=== PATIENT | male | born 1955 | race Hispanic/Latino ===

== ENCOUNTER 2018-10-05 08:20 | Inpatient (IN) | payer OTHER ==
--- NOTE | 2018-10-05 08:54 | ED PDOC ---
Arrival/HPI - General Chief Complaint: Chest Pain Time Seen by Provider: 10/05/18 08:41 Historian: Patient - History of Present Illness Narrative History of Present Illness (Text): 10/05/18 08:54 62 year old male, with past medical history of CVA (10/2017), peripheral neuropathy, hypertension, asthma, and chronic lower back pain and alcohol dependence, presents to the ED for evaluation of nausea, vomiting and diarrhea for past 4 days. Patient reports poor diet intake secondary to symptoms. Patient reports intermittent chest discomfort at home but none currently. Patient additionally informs bilateral feet discomfort but denies any trauma or injury. Patient denies any other somatic complaints. Patient denies any fever, chills, abdominal pain, shortness of breath, neck pain, back pain, vision changes, urinary symptoms or any other complaints. PMD: Dr. Moeller Time/Duration: < week Symptom Onset: Gradual Symptom Course: Unchanged Activities at Onset: Light Context: Home Past Medical History - Provider Review Nursing Documentation Reviewed: Yes - Infectious Disease Hx of Infectious Diseases: None - Tetanus Immunization Tetanus Immunization: Unknown - Cardiac Hx Cardiac Disorders: No Hx Angina: No Hx Cardiac Arrhythmia: No Hx Circulatory Problems: No Hx Congestive Heart Failure: No Hx Heart Transplant: No Hx Hypertension: Yes Hx Internal Defibrillator: No Hx Mitral Valve Prolapse: No Hx Pacemaker: No Hx Peripheral Edema: No Hx Peripheral Vascular Disease: No - Pulmonary Hx Respiratory Disorders: Yes Hx Asthma: Yes Hx Bronchitis: No Hx Chronic Obstructive Pulmonary Disease (COPD): No Hx Emphysema: No Hx Pneumonia: No Hx Respiratory Aspiration: No Hx Respiratory Tract Infection: No Hx Sleep Apnea: No Hx Tuberculosis: No - Neurological Hx Neurological Disorder: No Hx Alzheimer's Disease: No HX Cerebrovascular Accident: No Hx Dementia: No Hx Dizziness: No Hx Meningitis: No Hx Migraine: No Hx Parkinson's Disease: No Hx Seizures: No Hx Transient Ischemic Attacks (TIA): No - HEENT Hx HEENT Disorder: No Other/Comment: sinus issues due to enviromental allergies - Renal Hx Renal Disorder: No - Endocrine/Metabolic Hx Hyperthyroidism: No Hx Hypothyroidism: No - Hematological/Oncological Hx Blood Disorders: No - Integumentary Hx Dermatological Disorder: No - Musculoskeletal/Rheumatological Hx Arthritis: Yes (x 3yrs) Hx Back Pain: Yes (x 3 yrs) Hx Falls: No Hx Unsteady Gait: Yes (due to knee paon) Other/Comment: spinal stenosis - Gastrointestinal Hx Gastrointestinal Disorders: No - Genitourinary/Gynecological Hx Genitourinary Disorders: No Hx Reproductive Disorders: No - Psychiatric Hx Psychophysiologic Disorder: No Hx Substance Use: Yes Other/Comment: hx of etoh drinks 6-12 beers a day - Surgical History Hx Cardiac Catheterization: No Hx Coronary Stent: No Other/Comment: spinal surgery - Anesthesia Hx Anesthesia: Yes Hx Anesthesia Reactions: No Hx Malignant Hyperthermia: No - Suicidal Assessment Feels Threatened In Home Enviroment: No Family/Social History - Physician Review Nursing Documentation Reviewed: Yes Family/Social History: No Known Family HX Smoking Status: Heavy Smoker > 10 Cigarettes Daily Hx Alcohol Use: Yes (6-12 bottles of beer daily) Hx Substance Use: Yes Hx Substance Use Treatment: No Allergies/Home Meds Allergies/Adverse Reactions: Allergies enviromental Allergy (Mild, Uncoded 10/05/18 13:27) COUGH Home Medications: Home Meds Medication Instructions Recorded Confirmed Gabapentin [Neurontin] 300 mg PO BID 05/08/15 10/05/18 amLODIPine [Norvasc] 10 mg PO DAILY 12/25/15 10/05/18 Review of Systems - Physician Review All systems were reviewed & negative as marked: Yes - Review of Systems Constitutional: absent: Fevers Eyes: absent: Vision Changes Respiratory: absent: SOB Cardiovascular: absent: Chest Pain Gastrointestinal: Diarrhea, Nausea, Vomiting. absent: Abdominal Pain Genitourinary Male: absent: Dysuria, Urinary Output Changes Musculoskeletal: absent: Neck Pain Skin: absent: Rash Neurological: absent: Headache, Dizziness Physical Exam - Physical Exam Narrative Physical Exam (Text): 10/05/18 08:59 Gen: VS reviewed, alert, well developed, well nourished, nontoxic, mild distress. Unkempt. ENT: normal pharynx. Dry mucous membranes. Eye: EOMI, PERRL. Neck: no JVD, supple, no adenopathy. CV: regular rate, regular rhythm, no rubs, no murmur, no gallops, S1, S2, pulses equal and strong. Pulm: no distress, clear to auscultation, no wheeze, no rhonchi, breath sounds equal, no rales. Abd: soft, nontender, no guarding, no rebound, no rigidity, normal bowel sounds. Ext: no edema. Skin: good color, no rash, no cyanosis. Psych: responds appropriately to questions, normal affect. Neuro: oriented x 3, CN2-12 intact grossly, motor intact, sensation intact. Vital Signs Reviewed: Yes Vital Signs Temp Pulse Resp BP Pulse Ox 10/05/18 08:41 97.7 F 68 19 168/92 H 95 10/05/18 08:20 97.7 F 70 18 168/92 H 96 Temperature: Afebrile Blood Pressure: Hypertensive Pulse: Regular Respiratory Rate: Normal Appearance: Positive for: Well-Appearing, Non-Toxic, Comfortable Pain Distress: None Mental Status: Positive for: Alert and Oriented X 3 Medical Decision Making ED Course and Treatment: 10/05/18 09:00 Impression: 62 year old male presents to the ED for evaluation of nausea, vomiting, and diarrhea. Plan: -- EKG -- Labs -- Reassess and disposition Prior Visits: Notes and results from previous visits were reviewed. Progress Notes: 10/05/18 10:16 Dr. Moeller evaluated patient at bedside, accepts patient under his service. Request CT of head, as well as Dr. Dhaliwal and Dr. Cazares on consult for cardiology and neurology respectively. - RAD Interpretation Narrative RAD Interpretations (Text): 10/05/18 11:04 CT of head reviewed by radiologist, shows: FINDINGS: HEMORRHAGE: No intracranial hemorrhage. BRAIN: Turcios-white matter differentiation is preserved. There is no mass, mass effect or abnormal extra-axial fluid collection. There is no territorial infarction. The midline sagittal structures are normal. VENTRICLES: There is mild age-related global parenchymal volume loss and proportionate enlargement of the ventricles and cortical sulci. CALVARIUM: There is no calvarial fracture or extracranial soft tissue swelling. PARANASAL SINUSES: Predominantly clear. MASTOID AIR CELLS: Predominantly clear. OTHER FINDINGS: None. IMPRESSION: No acute intracranial abnormality. Rn Labor Delivery: Radiologist - EKG Interpretation EKG Interpretation (Text): 10/05/18 09:01 EKG reviewed at 8:38, shows NSR at 69 bpm, normal QRS, normal axis, PACs. Interpreted by ED Physician: Yes Type: 12 lead EKG - Scribe Statement The provider has reviewed the documentation as recorded by the Scribe Dee Cobb. All medical record entries made by the Scribe were at my direction and personally dictated by me. I have reviewed the chart and agree that the record accurately reflects my personal performance of the history, physical exam, medical decision making, and the department course for this patient. I have also personally directed, reviewed, and agree with the discharge instructions and disposition. Disposition/Present on Arrival - Present on Arrival Any Indicators Present on Arrival: No History of DVT/PE: No History of Uncontrolled Diabetes: No Urinary Catheter: No History of Decub. Ulcer: No History Surgical Site Infection Following: None - Disposition Have Diagnosis and Disposition been Completed?: Yes Diagnosis: Chest pain Disposition: HOSPITALIZED Disposition Time: 19:26 Condition: STABLE
[2018-10-05 09:36] LABS: BASO # 0.01 K/mm3 (0.0-2.0); BASO % 0.2 % (0.0-3.0); EOS % 0.6 % (1.5-5.0); HEMOGLOBIN 14.6 g/dL (14.0-18.0); LYMPH % 15.6 % (22.0-35.0); MEAN CELL VOLUME 98.1 fl (80.0-105.0); MEAN CORPUSCULAR HGB CONC 34.7 g/dl (31.0-37.0); MEAN PLATELET VOLUME 11.1 fl (7.0-11.0); MONO # 0.7 (0.1-0.6); MONO % 10.7 % (1.0-6.0); RBC 4.29 10^6/uL (3.5-6.1); RED CELL DISTRIBUTION WIDTH 13.2 % (11.5-14.5); WHITE BLOOD COUNT 6.4 10^3/uL (4.5-11.0)
[2018-10-05 09:40] LABS: INR 1.08; PARTIAL THROMBOPLASTIN TIME 28.8 Seconds (26.9-38.3); PROTHROMBIN TIME 12.2 SECONDS (9.4-12.5)
[2018-10-05 09:54] LABS: TROPONIN I < 0.01 ng/mL
[2018-10-05 09:58] LABS: D DIMER < 200 ng/mlDDU (0-243)
[2018-10-05 10:25] LABS: ALB/GLOB RATIO 1.4 (1.1-1.8); ALBUMIN 4.5 g/dL (3.0-4.8); ALT/SGPT 55 U/L (7-56); AST/SGOT 64 U/L (17-59); B-TYPE NATRIURETIC PEPTIDE 225 pg/mL (0-450); BLOOD UREA NITROGEN 10 mg/dL (7-21); CALCIUM 9.5 mg/dL (8.4-10.5); GFR NON-AFRICAN AMERICAN > 60
--- NOTE | 2018-10-05 11:00 | CT ---
Date of service: 10/05/2018 PROCEDURE: CT HEAD WITHOUT CONTRAST. HISTORY: Headaches COMPARISON: 07/30/2013. TECHNIQUE: Axial computed tomography images were obtained through the head/brain without intravenous contrast. Radiation dose: Total exam DLP = 1059.49 mGy-cm. This CT exam was performed using one or more of the following dose reduction techniques: Automated exposure control, adjustment of the mA and/or kV according to patient size, and/or use of iterative reconstruction technique. FINDINGS: HEMORRHAGE: No intracranial hemorrhage. BRAIN: Turcios-white matter differentiation is preserved. There is no mass, mass effect or abnormal extra-axial fluid collection. There is no territorial infarction. The midline sagittal structures are normal. VENTRICLES: There is mild age-related global parenchymal volume loss and proportionate enlargement of the ventricles and cortical sulci. CALVARIUM: There is no calvarial fracture or extracranial soft tissue swelling. PARANASAL SINUSES: Predominantly clear. MASTOID AIR CELLS: Predominantly clear. OTHER FINDINGS: None. IMPRESSION: No acute intracranial abnormality.
[2018-10-05] MEDS ORDERED: Iohexol 240 (50 ml) ONE (12:20)
[2018-10-05 13:36] LABS: BILIRUBIN,DIRECT 0.4 mg/dL (0.0-0.4)
--- NOTE | 2018-10-05 14:31 | CT ---
Date of service: 10/05/2018 PROCEDURE: CT Abdomen and Pelvis with contrast HISTORY: vomiting, diarrhea, elevated LFTs COMPARISON: None. TECHNIQUE: Contrast dose: 150 cc of Omni 350 Radiation dose: Total exam DLP = 1258.96 mGy-cm. This CT exam was performed using one or more of the following dose reduction techniques: Automated exposure control, adjustment of the mA and/or kV according to patient size, and/or use of iterative reconstruction technique. FINDINGS: LOWER THORAX: Unremarkable. LIVER: Unremarkable. No gross lesion or ductal dilatation. There is fatty infiltration of the liver GALLBLADDER AND BILE DUCTS: Multiple lucent gallstones are seen filling the gallbladder. There is no pericholecystic fluid. PANCREAS: Unremarkable. No gross lesion or ductal dilatation. SPLEEN: Unremarkable. ADRENALS: Unremarkable. No mass. KIDNEYS AND URETERS: Unremarkable. No hydronephrosis. No solid mass. VASCULATURE: Unremarkable. No aortic aneurysm. Aortic calcification BOWEL: Unremarkable. No obstruction. No gross mural thickening. APPENDIX: Normal appendix. PERITONEUM: Unremarkable. No free fluid. No free air. LYMPH NODES: Unremarkable. No enlarged lymph nodes. BLADDER: Unremarkable. REPRODUCTIVE: Unremarkable. BONES: No acute fracture. OTHER FINDINGS: None. IMPRESSION: Multiple lucent gallstones are seen filling the gallbladder. There is no pericholecystic fluid. Fatty infiltration of the liver
[2018-10-05] MEDS ORDERED: Aspirin 325 mg EC Tablets PO STA (15:07)
--- NOTE | 2018-10-05 15:12 | CP.PCM.CON ---
<Sherita Richardson - Last Filed: 10/05/18 15:05> History of Present Illness - History of Present Illness History of Present Illness: Gastroenterology Fellow/PGY6 Consult Note for Dr. Paris 62 year old male with PMH of Alcohol abuse, Afib, CVA, HTN, Depression, and chronic back pain presenting with vomiting and diarrhea. Patient describes intractable watery diarrhea for the last four days. Notes two remote episodes of bilious vomiting two days ago. Associated nausea, poor appetite, and night-time palpitations. Denies fever, chills, sweats, sick contacts, recent travel/antibiotics/hospitalizations, abdominal pain, hematemesis, melena, hematochezia, or unintentional weight loss. No prior EGD or colonoscopy. Family History- denies colon cancer, stomach cancer Social History- tobacco and alcohol abuse (prior pint of vodka daily, range 6-12 beers daily), denies illicit drug use Surgical History-spine intervention Review of Systems - Review of Systems Review of Systems: 12-point review of systems negative except for as above Past Patient History - Infectious Disease Hx of Infectious Diseases: None - Tetanus Immunizations Tetanus Immunization: Unknown - Past Social History Smoking Status: Heavy Smoker > 10 Cigarettes Daily - CARDIAC Hx Cardiac Disorders: No Hx Angina: No Hx Cardia Arrhythmia: No Hx Circulatory Problems: No Hx Congestive Heart Failure: No Hx Heart Transplant: No Hx Hypertension: Yes Hx Internal Defibrillator: No Hx Mitral Valve Prolapse: No Hx Pacemaker: No Hx Peripheral Edema: No Hx Peripheral Vascular Disease: No - PULMONARY Hx Respiratory Disorders: Yes Hx Asthma: Yes Hx Bronchitis: No Hx Chronic Obstructive Pulmonary Disease (COPD): No Hx Emphysema: No Hx Pneumonia: No Hx Respiratory Aspiration: No Hx Respiratory Tract Infection: No Hx Sleep Apnea: No Hx Tuberculosis: No - NEUROLOGICAL Hx Neurological Disorder: No Hx Alzheimer's Disease: No HX Cerebrovascular Accident: No Hx Dementia: No Hx Dizziness: No Hx Meningitis: No Hx Migraine: No Hx Parkinson's Disease: No Hx Seizures: No Hx Transient Ischemic Attacks (TIA): No - HEENT Hx HEENT Problems: No Other/Comment: sinus issues due to enviromental allergies - RENAL Hx Chronic Kidney Disease: No - ENDOCRINE/METABOLIC Hx Hyperthyroidism: No Hx Hypothyroidism: No - HEMATOLOGICAL/ONCOLOGICAL Hx Blood Disorders: No - INTEGUMENTARY Hx Dermatological Problems: No - MUSCULOSKELETAL/RHEUMATOLOGICAL Hx Arthritis: Yes (x 3yrs) Hx Back Pain: Yes (x 3 yrs) Hx Falls: No Hx Unsteady Gait: Yes (due to knee paon) Other/Comment: spinal stenosis - GASTROINTESTINAL Hx Gastrointestinal Disorders: No - GENITOURINARY/GYNECOLOGICAL Hx Genitourinary Disorders: No Hx Reproductive Disorders: No - PSYCHIATRIC Hx Psychophysiologic Disorder: No Hx Substance Use: Yes Other/Comment: hx of etoh drinks 6-12 beers a day - SURGICAL HISTORY Hx Cardiac Catheterization: No Hx Coronary Stent: No Other/Comment: spinal surgery - ANESTHESIA Hx Anesthesia: Yes Hx Anesthesia Reactions: No Hx Malignant Hyperthermia: No Meds Allergies/Adverse Reactions: Allergies Allergy/AdvReac Type Severity Reaction Status Date / Time enviromental Allergy Mild COUGH Uncoded 10/05/18 13:27 - Medications Medications: Current Medications Amiodarone HCl (Cordarone) 200 mg PO DAILY [facility] Amlodipine Besylate (Norvasc) 10 mg PO DAILY [facility] Hydralazine HCl (Apresoline) 10 mg PO QID PRN PRN Reason: for SBP> 160 Metoprolol Tartrate (Lopressor) 12.5 mg PO BID [facility] Physical Exam - Constitutional Appears: Non-toxic, No Acute Distress - Head Exam Head Exam: ATRAUMATIC, NORMOCEPHALIC - Eye Exam Eye Exam: EOMI, PERRL. absent: Scleral icterus Pupil Exam: PERRL. absent: Miosis, Mydriatic - ENT Exam ENT Exam: Mucous Membranes Moist, Normal Oropharynx - Neck Exam Neck exam: Positive for: Full Rom, Normal Inspection - Respiratory Exam Respiratory Exam: Clear to Auscultation Bilateral. absent: Rales, Rhonchi, Wheezes - Cardiovascular Exam Cardiovascular Exam: RRR, +S1, +S2. absent: Gallop, Rubs - GI/Abdominal Exam GI & Abdominal Exam: Distended, Hypoactive Bowel Sounds, Organomegaly, Soft. absent: Firm, Guarding, Rebound, Rigid, Tenderness - Extremities Exam Extremities exam: Positive for: normal inspection, pedal edema - Neurological Exam Neurological exam: Alert - Psychiatric Exam Psychiatric exam: Normal Affect, Normal Mood - Skin Skin Exam: Dry, Intact, Normal Color, Warm Results - Vital Signs Recent Vital Signs: Last Vital Signs Temp 97.7 F 10/05/18 08:41 Pulse 60 10/05/18 14:30 Resp 20 10/05/18 14:30 BP 133/77 10/05/18 14:30 Pulse Ox 97 10/05/18 14:30 - Labs Result Diagrams: 10/05/18 09:17 10/05/18 09:17 Labs: Laboratory Results - last 24 hr 10/05/18 10/05/18 10/05/18 09:17 09:17 09:17 WBC 6.4 RBC 4.29 Hgb 14.6 Hct 42.1 MCV 98.1 MCH 34.0 MCHC 34.7 RDW 13.2 Plt Count 165 MPV 11.1 H Neut % (Auto) 72.9 H Lymph % (Auto) 15.6 L [place] % (Auto) 10.7 H Eos % (Auto) 0.6 L Baso % (Auto) 0.2 Lymph # (Auto) 1.0 L [place] # (Auto) 0.7 H Eos # (Auto) 0.0 Baso # (Auto) 0.01 Absolute Neuts (auto) 4.63 Retic Count PT 12.2 INR 1.08 APTT 28.8 D-Dimer, Quantitative < 200 Sodium 139 Potassium 4.1 Chloride 106 Carbon Dioxide 24 Anion Gap 13 BUN 10 Creatinine 0.7 L Est GFR ( Amer) > 60 Est GFR (Non-Af Amer) > 60 Random Glucose 105 Calcium 9.5 Magnesium 2.1 Total Bilirubin 1.5 H Direct Bilirubin AST 64 H ALT 55 Alkaline Phosphatase 88 Lactate Dehydrogenase Troponin I < 0.01 NT-Pro-B Natriuret Pep 225 Total Protein 7.7 Albumin 4.5 Globulin 3.2 Albumin/Globulin Ratio 1.4 Alcohol, Quantitative 10/05/18 10/05/18 10/05/18 09:17 10:00 10:00 WBC RBC Hgb Hct MCV MCH MCHC RDW Plt Count MPV Neut % (Auto) Lymph % (Auto) Rosebud % (Auto) Eos % (Auto) Baso % (Auto) Lymph # (Auto) [place] # (Auto) Eos # (Auto) Baso # (Auto) Absolute Neuts (auto) Retic Count 1.58 H PT INR APTT D-Dimer, Quantitative Sodium Potassium Chloride Carbon Dioxide Anion Gap BUN Creatinine Est GFR ( Amer) Est GFR (Non-Af Amer) Random Glucose Calcium Magnesium Total Bilirubin Direct Bilirubin 0.4 AST ALT Alkaline Phosphatase Lactate Dehydrogenase 525 Troponin I NT-Pro-B Natriuret Pep Total Protein Albumin Globulin Albumin/Globulin Ratio Alcohol, Quantitative < 10 Assessment & Plan - Assessment and Plan (Free Text) Assessment: 62 year old male with PMH of Alcohol abuse, Afib, CVA, HTN, Depression, and chronic back pain presenting with vomiting and diarrhea. Active treatment of intractable diarrhea. No prior EGD or colonoscopy. Plan: -likely viral gastroenteritis -CT A/P- no acute intra-abdominal pathology -continue IVFs -ordered stool culture and Cdiff -provide Flagyl Q8H -provide liquid diet, advance as tolerated -mildly elevated bilirubin and AST in setting of GI fluid loss, alcohol use, and Obesity -pending Hepatitis panel and drug screen -will follow clinical course Case discussed with Dr. Paris <Bobby Paris V - Last Filed: 10/05/18 23:47> Meds - Medications Medications: Current Medications Amiodarone HCl (Cordarone) 200 mg PO DAILY [facility] Amlodipine Besylate (Norvasc) 10 mg PO DAILY [facility] Aspirin (Ecotrin) 81 mg PO DAILY [facility] Hydralazine HCl (Apresoline) 10 mg PO QID PRN PRN Reason: for SBP> 160 Last Admin: 10/05/18 15:42 Dose: 10 mg Metronidazole (Flagyl) 500 mg in 100 mls @ 100 mls/hr IVPB Q8 [facility]; Protocol Last Admin: 10/05/18 22:27 Dose: 100 mls/hr Metoprolol Tartrate (Lopressor) 12.5 mg PO BID [facility] Last Admin: 10/05/18 17:43 Dose: 12.5 mg Tramadol HCl (Ultram) 50 mg PO QID PRN PRN Reason: Pain, moderate (4-7) Last Admin: 10/05/18 22:27 Dose: 50 mg Results - Vital Signs Recent Vital Signs: Last Vital Signs Temp 98.1 F 10/05/18 23:43 Pulse 62 10/05/18 23:43 Resp 19 10/05/18 23:43 BP 142/71 10/05/18 23:43 Pulse Ox 95 10/05/18 23:43 - Labs Result Diagrams: 10/05/18 09:17 10/05/18 09:17 Labs: Laboratory Results - last 24 hr 10/05/18 10/05/18 10/05/18 09:17 09:17 09:17 WBC 6.4 RBC 4.29 Hgb 14.6 Hct 42.1 MCV 98.1 MCH 34.0 MCHC 34.7 RDW 13.2 Plt Count 165 MPV 11.1 H Neut % (Auto) 72.9 H Lymph % (Auto) 15.6 L [place] % (Auto) 10.7 H Eos % (Auto) 0.6 L Baso % (Auto) 0.2 Lymph # (Auto) 1.0 L [place] # (Auto) 0.7 H Eos # (Auto) 0.0 Baso # (Auto) 0.01 Absolute Neuts (auto) 4.63 Retic Count Haptoglobin PT 12.2 INR 1.08 APTT 28.8 D-Dimer, Quantitative < 200 Sodium 139 Potassium 4.1 Chloride 106 Carbon Dioxide 24 Anion Gap 13 BUN 10 Creatinine 0.7 L Est GFR ( Amer) > 60 Est GFR (Non-Af Amer) > 60 Random Glucose 105 Calcium 9.5 Magnesium 2.1 Total Bilirubin 1.5 H Direct Bilirubin AST 64 H ALT 55 Alkaline Phosphatase 88 Lactate Dehydrogenase Troponin I < 0.01 NT-Pro-B Natriuret Pep 225 Total Protein 7.7 Albumin 4.5 Globulin 3.2 Albumin/Globulin Ratio 1.4 Alcohol, Quantitative Hepatitis A IgM Ab Hep Bs Antigen Hep B Core IgM Ab Hepatitis C Antibody 10/05/18 10/05/18 10/05/18 09:17 10:00 10:00 WBC RBC Hgb Hct MCV MCH MCHC RDW Plt Count MPV Neut % (Auto) Lymph % (Auto) [place] % (Auto) Eos % (Auto) Baso % (Auto) Lymph # (Auto) [place] # (Auto) Eos # (Auto) Baso # (Auto) Absolute Neuts (auto) Retic Count Haptoglobin 99.4 PT INR APTT D-Dimer, Quantitative Sodium Potassium Chloride Carbon Dioxide Anion Gap BUN Creatinine Est GFR ( Amer) Est GFR (Non-Af Amer) Random Glucose Calcium Magnesium Total Bilirubin Direct Bilirubin AST ALT Alkaline Phosphatase Lactate Dehydrogenase Troponin I NT-Pro-B Natriuret Pep Total Protein Albumin Globulin Albumin/Globulin Ratio Alcohol, Quantitative < 10 Hepatitis A IgM Ab Negative Hep Bs Antigen Negative Hep B Core IgM Ab Negative Hepatitis C Antibody Negative 10/05/18 10/05/18 10:00 10:00 WBC RBC Hgb Hct MCV MCH MCHC RDW Plt Count MPV Neut % (Auto) Lymph % (Auto) [place] % (Auto) Eos % (Auto) Baso % (Auto) Lymph # (Auto) [place] # (Auto) Eos # (Auto) Baso # (Auto) Absolute Neuts (auto) Retic Count 1.58 H Haptoglobin PT INR APTT D-Dimer, Quantitative Sodium Potassium Chloride Carbon Dioxide Anion Gap BUN Creatinine Est GFR ( Amer) Est GFR (Non-Af Amer) Random Glucose Calcium Magnesium Total Bilirubin Direct Bilirubin 0.4 AST ALT Alkaline Phosphatase Lactate Dehydrogenase 525 Troponin I NT-Pro-B Natriuret Pep Total Protein Albumin Globulin Albumin/Globulin Ratio Alcohol, Quantitative Hepatitis A IgM Ab Hep Bs Antigen Hep B Core IgM Ab Hepatitis C Antibody Attending/Attestation - Attestation I have personally seen and examined this patient.: Yes I have fully participated in the care of the patient.: Yes I have reviewed all pertinent clinical information: Yes Notes (Text): [email or web address] 10/05/18 23:46
[2018-10-05 16:29] LABS: HEPATITIS B SURFACE AG Negative (NEGATIVE)
[2018-10-05 16:35] LABS: HEPATITIS A IGM NEGATIVE (NEGATIVE); HEPATITIS B CORE AB NEGATIVE (NEGATIVE)
[2018-10-05 16:46] LABS: HEPATITIS C ANTIBODY NEGATIVE (NEGATIVE)
[2018-10-05 16:49] VITALS: BMI 38.5
[2018-10-05] MEDS ORDERED: Pneumococcal 23-Valent Vaccine IM ONE (16:50)
[2018-10-05] MEDS ORDERED: Influenza Vaccine 60 mcg/0.5 mL SYR (4YR UP) IM ONE (16:50)
--- NOTE | 2018-10-05 17:20 | CP.PCM.CON ---
History of Present Illness - History of Present Illness History of Present Illness: Pain consult called . As per Dr. Palacios (pain specialist), this patient was taking tramadol (looked up at [facility]) from December-March. In the event of palpitations and ACS, it should be fine to restart Tramadol. Past Patient History - Infectious Disease Hx of Infectious Diseases: None - Tetanus Immunizations Tetanus Immunization: Unknown - Past Social History Smoking Status: Current Some Days Smoker - CARDIAC Hx Cardiac Disorders: Yes (7 LEG STENTS) Hx Angina: No Hx Cardia Arrhythmia: No Hx Circulatory Problems: No Hx Congestive Heart Failure: No Hx Heart Transplant: No Hx Hypertension: Yes Hx Internal Defibrillator: No Hx Mitral Valve Prolapse: No Hx Pacemaker: No Hx Peripheral Edema: No Hx Peripheral Vascular Disease: No - PULMONARY Hx Respiratory Disorders: Yes (SMOKES CIGARETTES. 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 - MUSCULOSKELETAL/RHEUMATOLOGICAL Hx Arthritis: Yes (x 3yrs) Hx Back Pain: Yes (x 3 yrs) Hx Falls: No Hx Unsteady Gait: Yes (due to knee pain) Other/Comment: spinal stenosis - GASTROINTESTINAL Hx Gastrointestinal Disorders: No - GENITOURINARY/GYNECOLOGICAL Hx Genitourinary Disorders: No - PSYCHIATRIC Hx Psychophysiologic Disorder: Yes Hx Substance Use: No Other/Comment: hx of etoh drinks 6-12 beers a day - SURGICAL HISTORY Hx Surgeries: Yes (HAS 7 LEG STENTS) Hx Cardiac Catheterization: No Hx Coronary Stent: No Other/Comment: spinal surgery - ANESTHESIA Hx Anesthesia: Yes Hx Anesthesia Reactions: No Hx Malignant Hyperthermia: No Meds Allergies/Adverse Reactions: Allergies Allergy/AdvReac Type Severity Reaction Status Date / Time enviromental Allergy Mild COUGH Uncoded 10/05/18 13:27 - Medications Medications: Current Medications Amiodarone HCl (Cordarone) 200 mg PO DAILY [facility] Amlodipine Besylate (Norvasc) 10 mg PO DAILY [facility] Aspirin (Ecotrin) 81 mg PO DAILY [facility] Hydralazine HCl (Apresoline) 10 mg PO QID PRN PRN Reason: for SBP> 160 Last Admin: 10/05/18 15:42 Dose: 10 mg Metronidazole (Flagyl) 500 mg in 100 mls @ 100 mls/hr IVPB Q8 [facility]; Protocol Metoprolol Tartrate (Lopressor) 12.5 mg PO BID [facility] Tramadol HCl (Ultram) 50 mg PO QID PRN PRN Reason: Pain, moderate (4-7) Results - Vital Signs Recent Vital Signs: Last Vital Signs Temp 97.7 F 10/05/18 08:41 Pulse 58 L 10/05/18 16:02 Resp 20 10/05/18 16:02 BP 167/90 H 10/05/18 15:42 Pulse Ox 97 10/05/18 14:30 - Labs Result Diagrams: 10/05/18 09:17 10/05/18 09:17 Labs: Laboratory Results - last 24 hr 10/05/18 10/05/18 10/05/18 09:17 09:17 09:17 WBC 6.4 RBC 4.29 Hgb 14.6 Hct 42.1 MCV 98.1 MCH 34.0 MCHC 34.7 RDW 13.2 Plt Count 165 MPV 11.1 H Neut % (Auto) 72.9 H Lymph % (Auto) 15.6 L [place] % (Auto) 10.7 H Eos % (Auto) 0.6 L Baso % (Auto) 0.2 Lymph # (Auto) 1.0 L [place] # (Auto) 0.7 H Eos # (Auto) 0.0 Baso # (Auto) 0.01 Absolute Neuts (auto) 4.63 Retic Count Haptoglobin PT 12.2 INR 1.08 APTT 28.8 D-Dimer, Quantitative < 200 Sodium 139 Potassium 4.1 Chloride 106 Carbon Dioxide 24 Anion Gap 13 BUN 10 Creatinine 0.7 L Est GFR ( Amer) > 60 Est GFR (Non-Af Amer) > 60 Random Glucose 105 Calcium 9.5 Magnesium 2.1 Total Bilirubin 1.5 H Direct Bilirubin AST 64 H ALT 55 Alkaline Phosphatase 88 Lactate Dehydrogenase Troponin I < 0.01 NT-Pro-B Natriuret Pep 225 Total Protein 7.7 Albumin 4.5 Globulin 3.2 Albumin/Globulin Ratio 1.4 Alcohol, Quantitative Hepatitis A IgM Ab Hep Bs Antigen Hep B Core IgM Ab Hepatitis C Antibody 10/05/18 10/05/18 10/05/18 09:17 10:00 10:00 WBC RBC Hgb Hct MCV MCH MCHC RDW Plt Count MPV Neut % (Auto) Lymph % (Auto) [place] % (Auto) Eos % (Auto) Baso % (Auto) Lymph # (Auto) [place] # (Auto) Eos # (Auto) Baso # (Auto) Absolute Neuts (auto) Retic Count Haptoglobin 99.4 PT INR APTT D-Dimer, Quantitative Sodium Potassium Chloride Carbon Dioxide Anion Gap BUN Creatinine Est GFR ( Amer) Est GFR (Non-Af Amer) Random Glucose Calcium Magnesium Total Bilirubin Direct Bilirubin AST ALT Alkaline Phosphatase Lactate Dehydrogenase Troponin I NT-Pro-B Natriuret Pep Total Protein Albumin Globulin Albumin/Globulin Ratio Alcohol, Quantitative < 10 Hepatitis A IgM Ab Negative Hep Bs Antigen Negative Hep B Core IgM Ab Negative Hepatitis C Antibody Negative 10/05/18 10/05/18 10:00 10:00 WBC RBC Hgb Hct MCV MCH MCHC RDW Plt Count MPV Neut % (Auto) Lymph % (Auto) [place] % (Auto) Eos % (Auto) Baso % (Auto) Lymph # (Auto) [place] # (Auto) Eos # (Auto) Baso # (Auto) Absolute Neuts (auto) Retic Count 1.58 H Haptoglobin PT INR APTT D-Dimer, Quantitative Sodium Potassium Chloride Carbon Dioxide Anion Gap BUN Creatinine Est GFR ( Amer) Est GFR (Non-Af Amer) Random Glucose Calcium Magnesium Total Bilirubin Direct Bilirubin 0.4 AST ALT Alkaline Phosphatase Lactate Dehydrogenase 525 Troponin I NT-Pro-B Natriuret Pep Total Protein Albumin Globulin Albumin/Globulin Ratio Alcohol, Quantitative Hepatitis A IgM Ab Hep Bs Antigen Hep B Core IgM Ab Hepatitis C Antibody
[2018-10-05] MEDS: metroNIDAZOLE IV 500 mg/100 ml 500 MG/100 ML BAG IVPB SCH ×2 (17:39→22:27)
--- NOTE | 2018-10-05 18:51 | CARD ---
APPROVED REPORT Date of service: 10/05/2018 EKG Measurement Heart [id number] <Conclusion> Sinus rhythm with premature atrial complexes in a pattern of bigeminy Otherwise normal ECG
--- NOTE | 2018-10-05 21:00 | HP ---
DATE OF EXAM: 10/05/2018 HISTORY OF PRESENT ILLNESS: This is a 62-year-old male who came to [facility] emergency room with a 4-day history of nausea, vomiting, and watery loose stools. He also states that he has been having chest pain with palpitations during this time. Denies any fever or chills or bloody stools or any recent contact with anyone who is sick, although there might have been someone who had the flu, he is not sure. PAST MEDICAL HISTORY: Atrial fibrillation, paroxysmal; ejection fraction of 50%; alcohol abuse; CVA; hypertension; depression; chronic back pain; laminectomy; peripheral vascular disease with multiple stents; and history of peripheral neuropathy. At this time, he states that he has not been taking any medications if he had run out of his medications. FAMILY HISTORY: Denies any history of colon cancer or stomach cancer. SOCIAL HISTORY: Tobacco and alcohol abuse prior, pint of vodka daily range is 6 to 12 beers daily. Denies illicit drug use. PAST SURGICAL HISTORY: He has had spine intervention. He has had no GI workup in the past involving an EGD or colonoscopy. REVIEW OF SYSTEMS: A 12-point review of systems are negative. ALLERGIES: HE RELATES ENVIRONMENTAL ALLERGIES. MEDICATIONS: He states that he was using [id number] pain meds before Naprosyn. He also states that he had one time was using Neurontin, but stopped that. PHYSICAL EXAMINATION: VITAL SIGNS: His temperature is 97.7, his pulse is 68, his blood pressure is 168/92, his respiratory rate is 18, and his oxygen sat is 97% on room air. GENERAL: The patient is alert and oriented x3. HEART: S1 and S2 rhythm. ABDOMEN: Soft. Positive bowel sounds. No rebound. LUNGS: Show diminished breath sounds at the bases. EXTREMITIES: Show no evidence of edema. LABORATORY DATA: Shows retic count of 1.58, WBC of 6.4, RBC of 4.29, hemoglobin of 14.6, hematocrit 42.1, and platelet count 165. PT is 12.2 with an INR 1.08 and PTT is 28.8. D-dimer is less than 200. Chemistry shows a sodium of 139, potassium 4.1, chloride 106, CO2 of 24, BUN of 10, and creatinine of 0.7. His total bilirubin is 1.5 and direct is 0.4. AST is 64. LDH is 525. Troponin is less than 0.01. BNP is 225. His alcohol level was less than 10. CAT scan of the head showed no acute findings. CAT scan of the abdomen and pelvis showed fatty liver with gallstones. Echocardiogram was reported as showing a sinus rhythm with premature atrial complexes and a pattern of bigeminy. ASSESSMENT AND PLAN: 1. We will get a Cardiology consult. 2. Gastrointestinal consult. 3. Neurology consult. 4. Pending results of diagnostic studies and input from the consultants, further treatment plan and management. Laura Moeller MD
--- NOTE | 2018-10-05 21:42 | CON ---
DATE: 10/05/2018 REASON FOR CONSULTATION: Cardiac evaluation, admitted with chest pain, history of paroxysmal atrial fibrillation, history of a stroke, status post JEAN cardioversion in the past. BRIEF CLINICAL HISTORY: This is a 62-year-old morbidly obese male with 300 pounds weight, history of back surgery, radiculopathy, now may require a nerve stimulator in the back, admitted here with complaint of back pain, chest pain as well as abdominal pain. Denies any chest pain now, but he says on admission he had a chest pain. PAST MEDICAL HISTORY: Significant for hypertension, hyperlipidemia, history of stroke, expressive aphasia a year ago, admitted to the hospital at ([facility]) with stroke. PAST SURGICAL HISTORY: Significant for back surgery 5 years ago. PREVIOUS CARDIAC WORKUP FOLLOWS: The patient had JEAN cardioversion a year ago because of atrial fibrillation, was on Xarelto and Plavix for 1 year and then it was stopped. Then, the patient had recently a stroke at [facility] in 10/2017 when the patient underwent JEAN, no evidence of atrial septal defect noted. No evidence of any plaque noted in the aorta. It was thought to be that the patient had peripheral arterial disease and stent done, probably there is a plaque went from there and caused the stroke as per the patient. Also past history significant for significant peripheral arterial disease, status post bilateral lower extremity stenting as well as bilateral iliac stenting 3 or 4 years ago. History of echo done and then followed by JEAN 1 year ago at [facility], good LV function, no atrial septal defect. History of stress test in 2014 before the patient had surgery of the back at [facility] and it was told nuclear scan was negative in 2014. PAST SURGICAL HISTORY: As mentioned history of back surgery. Now, awaiting for to have implantation for nerve stimulator to the back for pain relief. History of severe PAD, status post multiple stents both lower extremities as well as history of bilateral common iliac stenting. SOCIAL HISTORY: Drinks socially, but active tobacco, but he used to smoke 2 packs a day started as a teenager and recently cut down to 6 to 7 cigarettes a day 2 to 3 days. CURRENT MEDICATIONS: The patient is taking amlodipine 10 mg daily, oxycodone 15 mg daily, Naprosyn 500 mg daily, and Neurontin 300 mg p.o. b.i.d. ALLERGIES: NO KNOWN DRUG ALLERGIES OR SEASONAL ALLERGIES. REVIEW OF SYSTEMS: As per HPI. Previous 100 pages chart form at [facility] reviewed and got all the vital information including, a year ago when the patient presented with expressive aphasia, no evidence of atrial septal defect. Prior to that, the patient had a stress test in 2014 prior to back surgery at [facility], then Lexiscan was negative for ischemia. Previous EKG dated 10/2017 shows normal sinus APCs, the same as of today. History of severe PAD, status post bilateral iliac stenting and multiple stenting of the lower extremity, according to the patient stent was placed. History of CVA a year ago where the patient presented with expressive aphasia at [facility]. Rest of as per HPI. PHYSICAL EXAMINATION: VITAL SIGNS: As follows; temperature afebrile, heart rate 68, and blood pressure 127/64. HEENT: PERRLA. Extraocular muscles intact. NECK: Supple. No carotid bruit or thyromegaly. CHEST: Clear to auscultation. HEART: S1 and S2 regular. ABDOMEN: Soft. EXTREMITIES: Clubbing and cyanosis negative. LABORATORY DATA: EKG shows normal sinus with frequent APCs noted. Blood workup as follows; WBC 6.4, hemoglobin 14.6, hematocrit 42.1, and platelet count 165. Chemistry shows sodium 139, potassium 4, chloride 106, carbon dioxide 24, anion gap of 13, BUN 10, and creatinine 0.7. Bilirubin 1.4 and troponin 0.01. IMPRESSION AND PLAN: A 62-year-old male, morbidly obese with history of back surgery in 2014 and still complaining of back pain, admitted with abdominal pain, back pain, and chest pain. History of stress test in 2014, preop before the back pain, history of severe peripheral arterial disease, status post multiple stents, history of expressive aphasia after having a stroke in 10/2017, history of transesophageal echocardiography cardioversion a year and half ago, was on Xarelto and Plavix for 6 months to year, off Plavix, and off Xarelto. Given the multiple risk factor of coronary artery disease including peripheral arterial disease, morbid obesity, hypertension, we will schedule stress test and echo and the patient also going for back surgery and a stimulator implantation. We will get echo, stress test, lipid profile, TSH, and hemoglobin A1c. Interim, we will put aspirin 325 mg stat followed by 81 mg daily, put hydralazine p.r.n., resume amlodipine 10 mg daily. Start metoprolol 12.5 mg p.o. b.i.d. We will start amiodarone to prevent going back to atrial fibrillation. We will keep n.p.o. after 12 midnight for a stress test in the morning. The patient is already n.p.o. and going for CAT scan of the abdomen. Further recommendation will depend on the hospital course. We will give 325 mg stat followed by 81 mg daily. I will get EKG, also in the morning a stress test and echo. We will follow with you. Thank you Dr. Moeller for providing us the opportunity in taking care of the patient, Ajay Wnikler. Amanda Dhaliwla MD
--- NOTE | 2018-10-05 21:50 | CON ---
DATE: 10/05/2018 HISTORY OF PRESENT ILLNESS: This is a 62-year-old male with past medical history of CVA in 10/2017, peripheral neuropathy, hypertension, chronic low back pain, alcohol dependence and came for the evaluation of nausea, vomiting and diarrhea for the past 4 days and poor intake of the diet and additionally bilateral feet discomfort and evaluate the patient with peripheral neuropathy. PAST MEDICAL HISTORY: As above. ALLERGIES: NO KNOWN DRUG ALLERGY. HOME MEDICATION: Gabapentin and . PHYSICAL EXAMINATION: VITAL SIGNS: Blood pressure 168/92. HEENT: Normocephalic, atraumatic. NECK: Supple. NEUROLOGIC: Awake,alert, orientated x3. No aphasia. Cranial nerves II to XII are tested. Pupils reactive. EOM intact. Visual field full. No facial asymmetry. Tongue midline. Motor examination, moves upper extremities spontaneously and also moves both the lower extremity, but limited and deep tendon reflexes 1+, both plantar downgoing. Sensory, intact and cerebellar, gait is deferred. IMPRESSION: A 62-year-old male who presented to the Emergency Room with nausea, vomiting and diarrhea and called to evaluate for peripheral neuropathy and chronic low back pain and the patient's CAT scan of the head was done, which was reported negative. For any acute abnormality, continue present management and we will follow up and physical therapy. We will add gabapentin 300 mg twice a day. Fidencio Cazares MD
[2018-10-06] MEDS: metroNIDAZOLE IV 500 mg/100 ml 500 MG/100 ML BAG IVPB SCH ×3 (05:28→23:14)
[2018-10-06 06:33] LABS: BASO # 0.01 K/mm3 (0.0-2.0); BASO % 0.2 % (0.0-3.0); EOS # 0.1 (0.0-0.7); EOS % 1.8 % (1.5-5.0); HEMOGLOBIN 13.3 g/dL (14.0-18.0); LYMPH # 1.8 (1.2-3.4); LYMPH % 31.8 % (22.0-35.0); MEAN CELL VOLUME 99.2 fl (80.0-105.0); MEAN CORPUSCULAR HEMOGLOBIN 33.7 pg (25.0-35.0); MEAN CORPUSCULAR HGB CONC 33.9 g/dl (31.0-37.0); MEAN PLATELET VOLUME 11.3 fl (7.0-11.0); MONO # 0.4 (0.1-0.6); MONO % 6.8 % (1.0-6.0); RBC 3.95 10^6/uL (3.5-6.1); RED CELL DISTRIBUTION WIDTH 13.2 % (11.5-14.5); WHITE BLOOD COUNT 5.6 10^3/uL (4.5-11.0)
[2018-10-06 06:41] LABS: ALB/GLOB RATIO 1.4 (1.1-1.8); ALT/SGPT 51 U/L (7-56); AST/SGOT 58 U/L (17-59); BLOOD UREA NITROGEN 11 mg/dL (7-21); CALCIUM 9.3 mg/dL (8.4-10.5); GFR NON-AFRICAN AMERICAN > 60; HDL CHOLESTEROL 44 mg/dL (29-60)
[2018-10-06 06:52] LABS: LDL CHOLESTEROL 52 mg/dL (0-129)
--- NOTE | 2018-10-06 07:30 | CP.PCM.PN ---
Subjective - Date & Time of Evaluation Date of Evaluation: 10/06/18 Time of Evaluation: 06:10 - Subjective Subjective: Awake, alert, no distress, feels hungry Reason for consultation and follow up:Cardiac evaluation of chest pain, history of atrial fibrillation, post JEAN with cardioversion, history of stroke Seen and examined by me and Dr. Dhaliwal Objective - Vital Signs/Intake and Output Vital Signs (last 24 hours): Temp Pulse Resp BP Pulse Ox 98.1 F 58 L 19 142/71 95 10/05/18 23:43 10/06/18 05:05 10/05/18 23:43 10/05/18 23:43 10/05/18 23:43 Intake and Output: 10/06/18 10/06/18 06:59 18:59 Intake Total 1120 Output Total 1250 Balance -130 - Medications Medications: Current Medications Amiodarone HCl (Cordarone) 200 mg PO DAILY [facility] Amlodipine Besylate (Norvasc) 10 mg PO DAILY [facility] Aspirin (Ecotrin) 81 mg PO DAILY [facility] Hydralazine HCl (Apresoline) 10 mg PO QID PRN PRN Reason: for SBP> 160 Last Admin: 10/05/18 15:42 Dose: 10 mg Metronidazole (Flagyl) 500 mg in 100 mls @ 100 mls/hr IVPB Q8 [facility]; Protocol Last Admin: 10/06/18 05:28 Dose: 100 mls/hr Metoprolol Tartrate (Lopressor) 12.5 mg PO BID [facility] Last Admin: 10/05/18 17:43 Dose: 12.5 mg Tramadol HCl (Ultram) 50 mg PO QID PRN PRN Reason: Pain, moderate (4-7) Last Admin: 10/06/18 03:11 Dose: 50 mg - Labs Labs: 10/06/18 06:10 10/06/18 06:10 PT 12.2 SECONDS (9.4-12.5) 10/05/18 09:17 INR 1.08 10/05/18 09:17 APTT 28.8 Seconds (26.9-38.3) 10/05/18 09:17 - Constitutional Appears: Non-toxic, No Acute Distress - Head Exam Head Exam: NORMAL INSPECTION, NORMOCEPHALIC - Eye Exam Eye Exam: Normal appearance Pupil Exam: NORMAL ACCOMODATION - ENT Exam ENT Exam: Mucous Membranes Dry - Respiratory Exam Respiratory Exam: Decreased Breath Sounds, Clear to Ausculation Bilateral, NORMAL BREATHING PATTERN - Cardiovascular Exam Cardiovascular Exam: Bradycardia, REGULAR RHYTHM, +S1, +S2 Additional comments: Telemetry 50's-60's SB-NSR - GI/Abdominal Exam GI & Abdominal Exam: Soft, Normal Bowel Sounds - Extremities Exam Extremities Exam: Full ROM, Normal Capillary Refill - Neurological Exam Neurological Exam: Alert, Awake, Oriented x3 - Psychiatric Exam Psychiatric exam: Normal Affect, Normal Mood - Skin Skin Exam: Dry, Normal Color, Warm Assessment and Plan - Assessment and Plan (Free Text) Assessment: A 62 year old male who came in to the ER due to vomiting and diarrhea. History of hypertension, tobacco and alcohol abuse, atrial fibrillation was on Xarelto and Plavix for one year then discontinued. History of JEAN with cardioversion. CVA last 10/2017,depression, chronic back pain with back surgery at [facility], peripheral vascular disease post bilateral stent and bilateral iliac stenting 3-4 years ago. Awaiting for possible nerve stimulator for back pain management. Last stress test was in 2014 with normal results. Last Echo was a year ago. Troponin normal, EKG NSR with APC's, no ischemia. Ruled out acute coronary syndrome. CT of abdomen done- multiple lucent gallstones filling the gallbladder.fatty infiltration of the liver. For echo today. For Stress test today. Plan: CT of abdomen showed multiple lucent gallstones filling the gallbladder. fatty infiltration of the liver Denies chest pain For echo today to evaluate LV function For Stress test today On Amiodarone 200 mg daily, Norvasc 10 mg daily, ASA 81 mg daily Lopressor 12.5 mg BID Heart rate controlled Blood pressure controlled Continue current treatment Continue current medications Further recommendations during hospital course Will follow up Plan and treatment discussed with Dr. Dhaliwal
[2018-10-06] MEDS ORDERED: Aminophylline 25 mg/ml Inj ONE (08:06)
--- NOTE | 2018-10-06 10:23 | PN ---
DATE: 10/06/2018 SUBJECTIVE: The patient is a 62-year-old male currently in the cardiology department awaiting a stress test. The patient was admitted with a history of chest pain and palpitations, several days of watery loose stools with nausea and vomiting and a burning sensation in his feet. PHYSICAL EXAMINATION: VITAL SIGNS: Temperature 98.2, pulse 59, blood pressure 128/65, respiratory rate 20, oxygen sat is reported at 95% on room air. GENERAL: He is alert and oriented x3. NECK: Supple. LUNGS: Diminished breath sounds at the bases. HEART: S1, S2 rhythm. ABDOMEN: Obese, soft with positive bowel sounds. EXTREMITIES: No evidence of edema. LABORATORY DATA: Sodium 137, potassium 3.9, chloride 104, CO2 of 28. BUN 11, creatinine 0.7. His bilirubin is now 1.1. His LFTs are now normal. Cholesterol is 108. His triglycerides 107. His HDL is 44. His TSH is 0.58. CBC shows a WBC 5.6, RBC 3.95, hemoglobin 13.3, hematocrit 39.2, platelet count 131. Serology studies showed negative hepatitis screen. MEDICATIONS: He is currently on Apresoline 10 mg q.i.d. p.r.n. for blood pressure greater than 160, amiodarone 200 mg daily, Ecotrin 81 mg daily, Flagyl 500 mg every eight hours, Lopressor 12.5 mg b.i.d., Lyrica 75 mg b.i.d., Norvasc 10 mg daily. He has been placed on Percocet 10/325 every six hours p.r.n. for severe pain and tramadol 50 mg q.i.d. p.r.n. for moderate pain. ASSESSMENT AND PLAN: 1. History of chest pain, palpitations with a past history of ejection fraction of 50% and paroxysmal atrial fibrillation and cardioversion. He is awaiting the stress test and echocardiogram. 2. Elevation of his LFT in the setting of gallstones and bowel history with watery stools, placed on Flagyl by GI. Ultrasound of the abdomen has been requested. The patient will continue on a liquid diet at this time pending results of GI studies. 3. History of pain disorder with a history of laminectomy of the spine and a history of peripheral vascular disease with multiple stents, history of pain disorder with use of tramadol in the past. He has had a pain management consult which is greatly appreciated and has been placed on the above-mentioned medications. This has been discussed with the patient at length. 4. Burning sensation in his feet which Neurology is assessing the patient for. We will monitor the patient closely. Follow up the patient's diagnostic studies, await input from the individual wig sales consultant. His notes are appreciated. We will also get a chest x-ray. Laura Moeller MD
--- NOTE | 2018-10-06 11:13 | CARD ---
APPROVED REPORT Date of service: 10/06/2018 EXAM: Two-dimensional and M-mode echocardiogram with Doppler and color Doppler. INDICATION Chest Pain 2D DIMENSIONS Left Atrium (2D)3.5 (1.6-4.0cm)IVSd1.5 (0.7-1.1cm) LVDd5.2 (3.9-5.9cm)PWd1.5 (0.7-1.1cm) LVDs3.8 (2.5-4.0cm)FS (%) 26.4 % LVEF (%)51.4 (>50%) M-Mode DIMENSIONS Aortic Root2.30 (2.2-3.7cm)Aortic Cusp Exc.1.30 (1.5-2.0cm) Aortic Valve AoV Peak Kgxxxtse559.0cm/Clau Peak GR.7mmHg Mitral Valve E/A ratio0.0 TDI E/Lateral E'0.0E/Medial E'0.0 Tricuspid Valve TR Peak [id number] [id number] Peak Gr.4mmHg [id number] LEFT VENTRICLE The left ventricle is normal size. There is moderate concentric left ventricular hypertrophy. LV WSystolic Function Low Noemal with LV Ej.Fr:51%. Tissue Doppler imaging reveals mild left ventricular diastolic dysfunction. RIGHT VENTRICLE The right ventricle is normal size. The right ventricular systolic function is normal. ATRIA The left atrium size is normal. The right atrium size is normal. AORTIC VALVE The aortic valve is normal in structure. MITRAL VALVE The mitral valve is normal in structure. TRICUSPID VALVE The tricuspid valve is normal in structure. There is trace tricuspid regurgitation. PERICARDIAL EFFUSION Small Echo Free Space seen Anteriorly Very Snall Pericardial Effusion. Small E$chogenic Density Anteriorly Fat Pad? <Conclusion> The left ventricle is normal size. There is moderate concentric left ventricular hypertrophy. LV Systolic Function Low Noemal with LV Ej.Fr:51%. Tissue Doppler imaging reveals mild left ventricular diastolic dysfunction. The right ventricle is normal size. The right ventricular systolic function is normal. The left atrium size is normal. The right atrium size is normal. The aortic valve is normal in structure. The mitral valve is normal in structure. The tricuspid valve is normal in structure. There is trace tricuspid regurgitation. Small Echo Free Space seen Anteriorly Snall Pericardial Effusion. Small E$chogenic Density Anteriorly Fat Pad?
--- NOTE | 2018-10-06 12:12 | RAD ---
Date of service: 10/06/2018 HISTORY: hx of chest pain COMPARISON: No prior. TECHNIQUE: Chest PA and lateral FINDINGS: LUNGS: No active pulmonary disease. PLEURA: No significant pleural effusion identified. No pneumothorax apparent. CARDIOVASCULAR: Aortic calcification Normal cardiac size. No pulmonary vascular congestion. OSSEOUS STRUCTURES: No significant abnormalities. VISUALIZED UPPER ABDOMEN: Normal. OTHER FINDINGS: None. IMPRESSION: No active disease.
--- NOTE | 2018-10-06 12:13 | US ---
Date of service: 10/06/2018 HISTORY: r/o gallstones COMPARISON: 08/01/2013. Abdominal ultrasound 10/05/2018 CT abdomen and pelvis. TECHNIQUE: Sonographic evaluation of the abdomen. FINDINGS: LIVER: Measures 18.5 cm. Hepatopedal blood flow. Fatty infiltration manifest ultrasonographically as increased echogenicity of the liver parenchyma. No mass. No intrahepatic bile duct dilatation. GALLBLADDER: Cholelithiasis. Negative study for gallbladder wall thickening, pericholecystic fluid, sonographic Shahid's sign. COMMON BILE DUCT: Measures 4.7 mm. No stones. No dilatation. PANCREAS: Unremarkable as visualized. No mass. No ductal dilatation. RIGHT KIDNEY: Measures 4.9 x 9.7cm. Normal echogenicity. No calculus, mass, or hydronephrosis. LEFT KIDNEY: Measures 4.1 x 11.8cm. Normal echogenicity. No calculus, mass, or hydronephrosis. SPLEEN: Top-normal spleen. Otherwise unremarkable AORTA: Obscured by overlying bowel gas. Non diagnostic assessment of the aorta IVC: Unremarkable. OTHER FINDINGS: None. IMPRESSION: Cholelithiasis. No sonographic evidence of acute cholecystitis. Additional benign and/or incidental findings described above.
--- NOTE | 2018-10-06 12:55 | CP.PCM.PN ---
<Sherita Richardson - Last Filed: 10/06/18 12:52> Subjective - Date & Time of Evaluation Date of Evaluation: 10/06/18 Time of Evaluation: 12:52 - Subjective Subjective: Gastroenterology Fellow/PGY6 Progress Note Patient with no acute events overnight. NPO for stress test this morning. No bowel movements overnight. A 12-point review of systems negative except for as above. Objective - Vital Signs/Intake and Output Vital Signs (last 24 hours): Temp Pulse Resp BP Pulse Ox 98.2 F 76 20 140/87 95 10/06/18 06:00 10/06/18 12:19 10/06/18 06:00 10/06/18 12:20 10/06/18 06:00 Intake and Output: 10/06/18 10/06/18 06:59 18:59 Intake Total 1120 Output Total 1250 Balance -130 - Medications Medications: Current Medications Amiodarone HCl (Cordarone) 200 mg PO DAILY [facility] Last Admin: 10/06/18 12:19 Dose: 200 mg Amlodipine Besylate (Norvasc) 10 mg PO DAILY [facility] Last Admin: 10/06/18 12:20 Dose: 10 mg Aspirin (Ecotrin) 81 mg PO DAILY [facility] Last Admin: 10/06/18 12:20 Dose: 81 mg Hydralazine HCl (Apresoline) 10 mg PO QID PRN PRN Reason: for SBP> 160 Last Admin: 10/05/18 15:42 Dose: 10 mg Metronidazole (Flagyl) 500 mg in 100 mls @ 100 mls/hr IVPB Q8 [facility]; Protocol Last Admin: 10/06/18 05:28 Dose: 100 mls/hr Metoprolol Tartrate (Lopressor) 12.5 mg PO BID [facility] Last Admin: 10/06/18 12:17 Dose: 12.5 mg Oxycodone/Acetaminophen (Percocet 10/325 Mg Tab) 1 tab PO Q6H PRN PRN Reason: Pain, severe (8-10) Pregabalin (Lyrica) 75 mg PO BID [facility] Last Admin: 10/06/18 12:20 Dose: 75 mg Tramadol HCl (Ultram) 50 mg PO QID PRN PRN Reason: Pain, moderate (4-7) Last Admin: 10/06/18 12:19 Dose: 50 mg - Labs Labs: 10/06/18 06:10 10/06/18 06:10 PT 12.2 SECONDS (9.4-12.5) 10/05/18 09:17 INR 1.08 10/05/18 09:17 APTT 28.8 Seconds (26.9-38.3) 10/05/18 09:17 - Constitutional Appears: Non-toxic, No Acute Distress - Head Exam Head Exam: ATRAUMATIC, NORMOCEPHALIC - Eye Exam Eye Exam: EOMI, PERRL. absent: Scleral icterus Pupil Exam: PERRL. absent: Miosis, Mydriatic - ENT Exam ENT Exam: Mucous Membranes Moist, Normal Oropharynx - Neck Exam Neck Exam: Full ROM, Normal Inspection - Respiratory Exam Respiratory Exam: Clear to Ausculation Bilateral. absent: Rales, Rhonchi, Wheezes - Cardiovascular Exam Cardiovascular Exam: RRR, +S1, +S2. absent: Gallop, Rubs - GI/Abdominal Exam GI & Abdominal Exam: Soft, Normal Bowel Sounds, Organomegaly. absent: Distended, Firm, Guarding, Rigid, Tenderness, Rebound - Extremities Exam Extremities Exam: Normal Inspection, Pedal Edema - Neurological Exam Neurological Exam: Alert, Awake - Psychiatric Exam Psychiatric exam: Normal Affect, Normal Mood - Skin Skin Exam: Dry, Intact, Normal Color, Warm Assessment and Plan - Assessment and Plan (Free Text) Assessment: 62 year old male with PMH of Alcohol abuse, Afib, CVA, HTN, Depression, and chronic back pain presenting with vomiting and diarrhea. CT A/P showed no acute intra-abdominal pathology. No prior EGD or colonoscopy. Plan: -viral gastroenteritis -elevated LFTs resolved -Ultrasound- hepatic steatosis, cholelithiasis -hepatitis panel negative -advance diet as tolerated -will follow clinical course Case discussed with Dr. Paris <Bobby Paris V - Last Filed: 10/07/18 00:09> Objective - Vital Signs/Intake and Output Vital Signs (last 24 hours): Temp Pulse Resp BP Pulse Ox 97.6 F 81 20 132/76 95 10/06/18 17:47 10/06/18 18:00 10/06/18 17:47 10/06/18 17:59 10/06/18 06:00 Intake and Output: 10/06/18 10/07/18 18:59 06:59 Intake Total 100 Balance 100 - Medications Medications: Current Medications Amiodarone HCl (Cordarone) 200 mg PO DAILY [facility] Last Admin: 10/06/18 12:19 Dose: 200 mg Amlodipine Besylate (Norvasc) 10 mg PO DAILY [facility] Last Admin: 10/06/18 12:20 Dose: 10 mg Aspirin (Ecotrin) 81 mg PO DAILY [facility] Last Admin: 10/06/18 12:20 Dose: 81 mg Hydralazine HCl (Apresoline) 10 mg PO QID PRN PRN Reason: for SBP> 160 Last Admin: 10/05/18 15:42 Dose: 10 mg Metronidazole (Flagyl) 500 mg in 100 mls @ 100 mls/hr IVPB Q8 [facility]; Protocol Last Admin: 10/06/18 23:14 Dose: 100 mls/hr Metoprolol Tartrate (Lopressor) 12.5 mg PO BID [facility] Last Admin: 10/06/18 17:59 Dose: 12.5 mg Oxycodone/Acetaminophen (Percocet 10/325 Mg Tab) 1 tab PO Q6H PRN PRN Reason: Pain, severe (8-10) Pregabalin (Lyrica) 75 mg PO BID [facility] Last Admin: 10/06/18 17:59 Dose: 75 mg Tramadol HCl (Ultram) 50 mg PO QID PRN PRN Reason: Pain, moderate (4-7) Last Admin: 10/06/18 18:01 Dose: 50 mg - Labs Labs: 10/06/18 06:10 10/06/18 06:10 PT 12.2 SECONDS (9.4-12.5) 10/05/18 09:17 INR 1.08 10/05/18 09:17 APTT 28.8 Seconds (26.9-38.3) 10/05/18 09:17 Attending/Attestation - Attestation I have personally seen and examined this patient.: Yes I have fully participated in the care of the patient.: Yes I have reviewed all pertinent clinical information, including history, physical exam and plan: Yes Notes (Text): p 10/07/18 00:09
--- NOTE | 2018-10-06 14:38 | CARD ---
APPROVED REPORT Date of service: 10/06/2018 Protocol: PERSANTINE Test Type: Dobutamine Sestamibi Stress Test Attending Physician: Dr. Amanda Villalobos Referring Physician: Dr. Laura Moeller Test Indications: Chest Pain Height:6 ft 0 in Weight:300lbs Medications: Cardorone, Norvasc, Aspirin, Apresoline, Lopressor, Flagyl, Ultram Medical History: 62 year old male with ahistory of CVA,A Fib, COPD, HTN, PVD, Cardioversion Target HR: 160 bpm Resting ECG: RSR Resting Heart Rate: 58 bpm Resting Blood Pressure: 140/88mmHg Submaximum (85%): 136 bpm PROCEDURE Pharmacologic stress testing was performed using 0.4mg per 5ml of regadenoson given intravenously over 7-10 seconds. POST EXERCISE Reason for Termination: Protocol completed Target HR: No Max HR: 61 bpm 60% of Maximum Predicted HR: 160 bpm Exercise duration: 00:31 min:sec, 0 Stage Exercise capacity: 1.0METs Max Blood Pressure: 140/88mmHg Blood Pressure response to exercise: normal resting BP - appropriate response Heart Rate response to exercise: appropriate Chest Pain: No, none Angina index: 0 Arrhythmia: No, none ST Change: No, none Deviation: 0 mm TEST SUMMARY [id number]/88.0. INFUSIONDOSE 100:[id number]/.0. [id number]/78.0. INTERPRETATION Stress EKG Conclusion: IV LEXISCAN NUCLEAR STRESS TEST NEGATIVE FOR CHEST PAIN AND NEGATIVE FOR ST-T CHANGES. NUCLEAR SCAN REPORT PENDING. Signed by Amanda Villalobos Electronically Approved: 10/06/2018 09:47:35 EXAM: Myocardial Perfusion REST/STRESS Stress Test Type: Pharmacologic Imaging Protocol The imaging protocol used to acquire images was Rest Tc-99m/stress Tc-99m 1 day Rest Spect myocardial perfusion imaging was performed in supine position 50 minutes following the injection of 10.3 mCi of Tc-99 Myoview. At peak stress, the patient was injected intravenously with 30.2mCi of Tc-99 tetrofosmin after an infusion time of 0 minutes and 10 seconds. Gated Stress Spect was performed 70 minutes after intravenous Tc-99 Myoview injection. The images were gated to evaluate regional wall motion and calculate ventricular ejection fraction.Images were reconstructed using backfilter projection method in short horizontal and verticle long axis. Spect slices were generated. LV Perfusion The quality of the study is good. The left ventricle is mildly enlarged in size with thickened myocardium. The right ventricle is unremarkable. The lung uptake is normal. The distribution of tracer reveals heterogeneous uptake with a small area of mildly decreased perfusion involving apical wall on the stress study. The remainder of the LV myocardium is unremarkable. The rest myocardial perfusion study shows no significant change. Wall Motion Wall motion study shows good contractility of the left ventricle. LVEF = 60%. Conclusion 1. Probably normal SPECT myocardial perfusion study. 2. Heterogeneous activities and fixed, mild, anterior defect are most likely due to prominent pectoal soft tissue/ male breast attenuation. 3. Normal gated wall motion and thicknening of the left ventricle.
--- NOTE | 2018-10-06 23:04 | CARD ---
APPROVED REPORT Date of service: 10/06/2018 EKG Measurement Heart [id number] <Conclusion> Sinus bradycardia with sinus arrhythmia Otherwise normal ECG
[2018-10-07] MEDS: metroNIDAZOLE IV 500 mg/100 ml 500 MG/100 ML BAG IVPB SCH ×3 (06:17→22:57)
[2018-10-07] MEDS: Oxycodone/Acetaminophen 10/325 mg Tab PO PRN ×3 (06:22→20:18)
--- NOTE | 2018-10-07 06:53 | CP.PCM.PN ---
Subjective - Date & Time of Evaluation Date of Evaluation: 10/07/18 Time of Evaluation: 06:20 - Subjective Subjective: Sitting side of bed,awake, alert, no distress, complaining of chronic leg pain/burning Reason for consultation and follow up:Cardiac evaluation of chest pain, history of atrial fibrillation, post JEAN with cardioversion, history of stroke Seen and examined by me and Dr. Villalobos Objective - Vital Signs/Intake and Output Vital Signs (last 24 hours): Temp Pulse Resp BP Pulse Ox 97.9 F 64 18 144/72 94 L 10/07/18 05:22 10/07/18 05:22 10/07/18 05:22 10/07/18 05:22 10/07/18 05:22 Intake and Output: 10/06/18 10/07/18 18:59 06:59 Intake Total 100 480 Output Total 400 Balance 100 80 - Medications Medications: Current Medications Amiodarone HCl (Cordarone) 200 mg PO DAILY [facility] Last Admin: 10/06/18 12:19 Dose: 200 mg Amlodipine Besylate (Norvasc) 10 mg PO DAILY [facility] Last Admin: 10/06/18 12:20 Dose: 10 mg Aspirin (Ecotrin) 81 mg PO DAILY [facility] Last Admin: 10/06/18 12:20 Dose: 81 mg Hydralazine HCl (Apresoline) 10 mg PO QID PRN PRN Reason: for SBP> 160 Last Admin: 10/05/18 15:42 Dose: 10 mg Metronidazole (Flagyl) 500 mg in 100 mls @ 100 mls/hr IVPB Q8 [facility]; Protocol Last Admin: 10/07/18 06:17 Dose: 100 mls/hr Metoprolol Tartrate (Lopressor) 12.5 mg PO BID [facility] Last Admin: 10/06/18 17:59 Dose: 12.5 mg Oxycodone/Acetaminophen (Percocet 10/325 Mg Tab) 1 tab PO Q6H PRN PRN Reason: Pain, severe (8-10) Last Admin: 10/07/18 06:22 Dose: 1 tab Pregabalin (Lyrica) 75 mg PO BID [facility] Last Admin: 10/06/18 17:59 Dose: 75 mg Tramadol HCl (Ultram) 50 mg PO QID PRN PRN Reason: Pain, moderate (4-7) Last Admin: 10/07/18 00:24 Dose: 50 mg - Labs Labs: 10/06/18 06:10 10/06/18 06:10 PT 12.2 SECONDS (9.4-12.5) 10/05/18 09:17 INR 1.08 10/05/18 09:17 APTT 28.8 Seconds (26.9-38.3) 10/05/18 09:17 - Constitutional Appears: Non-toxic, No Acute Distress - Head Exam Head Exam: NORMAL INSPECTION, NORMOCEPHALIC - Eye Exam Eye Exam: Normal appearance Pupil Exam: NORMAL ACCOMODATION - ENT Exam ENT Exam: Mucous Membranes Moist, Normal Exam - Respiratory Exam Respiratory Exam: Decreased Breath Sounds, Clear to Ausculation Bilateral, NORMAL BREATHING PATTERN - Cardiovascular Exam Cardiovascular Exam: REGULAR RHYTHM, +S1, +S2 Additional comments: Telemetry NSR with APC's - GI/Abdominal Exam GI & Abdominal Exam: Soft, Normal Bowel Sounds - Extremities Exam Extremities Exam: Full ROM, Normal Capillary Refill - Neurological Exam Neurological Exam: Alert, Awake, Oriented x3 - Psychiatric Exam Psychiatric exam: Normal Affect, Normal Mood - Skin Skin Exam: Dry, Normal Color, Warm Assessment and Plan - Assessment and Plan (Free Text) Assessment: A 62 year old male who came in to the ER due to vomiting and diarrhea. History of hypertension, tobacco and alcohol abuse, atrial fibrillation was on Xarelto and Plavix for one year then discontinued. History of JEAN with cardioversion. CVA last 10/2017,depression, chronic back pain with back surgery at [facility], peripheral vascular disease post bilateral stent and bilateral iliac stenting 3-4 years ago. Awaiting for possible nerve stimulator for back pain management. Last stress test was in 2014 with normal results. Last Echo was a year ago. Troponin normal, EKG NSR with APC's, no ischemia. Ruled out acute coronary syndrome. CT of abdomen done- multiple lucent gallstones filling the gallbladder.fatty infiltration of the liver. Echo and Stress test done. Stress test normal. Echo LVEF 51%, trace TR, small pericardial effusion. Cardiac status stable. Plan: Denies chest pain, complaining of chronic leg pain/burning PRN Percocet given Cardiac status stable Heart rate controlled Blood pressure controlled On Amiodarone 200 mg daily, Norvasc 10 mg daily, ASA 81 mg daily Lopressor 12.5 mg BID Continue current treatment Continue current medications GI on consult, work up in progress Will discontinue telemetry Will follow up Plan and treatment discussed with
--- NOTE | 2018-10-07 11:32 | PN ---
DATE: 10/07/2018 SUBJECTIVE: A 62-year-old male in telemetry. Currently, the patient seems to be a little bit more comfortable. He states that he still has burning sensation in his feet. PHYSICAL EXAMINATION: VITAL SIGNS: His temperature is 97.9. His blood pressure is 144/72. His oxygen sat is 94% on room air. His pulse is 62. GENERAL: He is alert and oriented x3. LUNGS: Clear. HEART: S1, S2 rhythm. ABDOMEN: Soft with positive bowel sounds. EXTREMITIES: No evidence of edema. LABORATORY DATA: His hepatitis panel was negative. MEDICATIONS: He is currently on Apresoline, amiodarone, Ecotrin, Lopressor, Norvasc by Cardiology. ASSESSMENT AND PLAN: 1. He has a history of paroxysmal atrial fibrillation was reported as a normal stress test, an echocardiogram which showed tricuspid regurgitation and ejection fraction of 51%. He was admitted with palpitations and chest discomfort. 2. He has a history of burning sensation in his feet with peripheral neuropathy, also several vascular stents in both legs, history of spinal stenosis and history of laminectomies. Neurology has been asked to see the patient. Followup will be requested. It has been recommended to the patient by an orthopedist at [facility] and he undergo a neurostimulator, we will get there input. 3. He came in with a history of clinically gastroenteritis. He is currently on Flagyl. His symptoms have improved. He is on a soft diet at this time. He is being followed by Infectious Disease. Stool studies are pending. 4. There is a history of chronic pain in the past. He has been seen by Pain Management here, have discussed their current recommendations of using Lyrica, Percocet, and tramadol. I have explained to the patient it would be best to try and focus on one particular medication. He has used tramadol in the past. We will also request a physical therapy evaluation and follow up with Neurology. Laura Moeller MD
--- NOTE | 2018-10-07 12:38 | CP.PCM.PN ---
<ShoshanahildaqueenieMelvin - Last Filed: 10/07/18 12:36> Subjective - Date & Time of Evaluation Date of Evaluation: 10/07/18 Time of Evaluation: 12:36 - Subjective Subjective: patient is doing very well. He is tolerating his diet including eggs. Denies vomiting or diarrhea in the last 24 hours. Denies abdominal pain. Objective - Vital Signs/Intake and Output Vital Signs (last 24 hours): Temp Pulse Resp BP Pulse Ox 97.9 F 64 18 140/70 94 L 10/07/18 05:22 10/07/18 05:22 10/07/18 05:22 10/07/18 09:42 10/07/18 05:22 Intake and Output: 10/07/18 10/07/18 06:59 18:59 Intake Total 480 Output Total 400 Balance 80 - Medications Medications: Current Medications Amiodarone HCl (Cordarone) 200 mg PO DAILY [facility] Last Admin: 10/07/18 09:43 Dose: 200 mg Amlodipine Besylate (Norvasc) 10 mg PO DAILY [facility] Last Admin: 10/07/18 09:42 Dose: 10 mg Aspirin (Ecotrin) 81 mg PO DAILY [facility] Last Admin: 10/07/18 09:41 Dose: 81 mg Hydralazine HCl (Apresoline) 10 mg PO QID PRN PRN Reason: for SBP> 160 Last Admin: 10/05/18 15:42 Dose: 10 mg Metronidazole (Flagyl) 500 mg in 100 mls @ 100 mls/hr IVPB Q8 [facility]; Protocol Last Admin: 10/07/18 06:17 Dose: 100 mls/hr Metoprolol Tartrate (Lopressor) 12.5 mg PO BID [facility] Last Admin: 10/07/18 09:42 Dose: 12.5 mg Oxycodone/Acetaminophen (Percocet 10/325 Mg Tab) 1 tab PO Q6H PRN PRN Reason: Pain, severe (8-10) Last Admin: 10/07/18 06:22 Dose: 1 tab Pregabalin (Lyrica) 75 mg PO BID [facility] Last Admin: 10/07/18 09:42 Dose: 75 mg Tramadol HCl (Ultram) 50 mg PO QID PRN PRN Reason: Pain, moderate (4-7) Last Admin: 10/07/18 00:24 Dose: 50 mg - Labs Labs: 10/06/18 06:10 10/06/18 06:10 PT 12.2 SECONDS (9.4-12.5) 10/05/18 09:17 INR 1.08 10/05/18 09:17 APTT 28.8 Seconds (26.9-38.3) 10/05/18 09:17 - Constitutional Appears: Non-toxic, No Acute Distress - ENT Exam ENT Exam: Mucous Membranes Moist, Normal Exam - Respiratory Exam Respiratory Exam: Clear to Ausculation Bilateral, NORMAL BREATHING PATTERN - Cardiovascular Exam Cardiovascular Exam: REGULAR RHYTHM, +S1, +S2 - Extremities Exam Extremities Exam: Normal Inspection. absent: Pedal Edema - Psychiatric Exam Psychiatric exam: Normal Affect, Normal Mood - Skin Skin Exam: Dry, Normal Color Assessment and Plan - Assessment and Plan (Free Text) Assessment: 62 year old male with PMH of Alcohol abuse, Afib, CVA, HTN, Depression, and chronic back pain presenting with vomiting and diarrhea. CT A/P showed no acute intra-abdominal pathology. No prior EGD or colonoscopy. Plan: -viral gastroenteritis -elevated LFTs resolved -Ultrasound- hepatic steatosis, cholelithiasis -hepatitis panel negative -advance diet as tolerated -Primary will be evaluating patient for PAD and cardiac w/u. Case discussed with Dr. Paris <Bobby Paris V - Last Filed: 10/08/18 00:51> Objective - Vital Signs/Intake and Output Vital Signs (last 24 hours): Temp Pulse Resp BP Pulse Ox 98.1 F 65 18 139/86 95 10/07/18 22:00 10/07/18 22:00 10/07/18 22:00 10/07/18 22:00 10/07/18 22:00 Intake and Output: 10/07/18 10/08/18 18:59 06:59 Intake Total 620 Balance 620 - Medications Medications: Current Medications Amiodarone HCl (Cordarone) 200 mg PO DAILY [facility] Last Admin: 10/07/18 09:43 Dose: 200 mg Amlodipine Besylate (Norvasc) 10 mg PO DAILY [facility] Last Admin: 10/07/18 09:42 Dose: 10 mg Aspirin (Ecotrin) 81 mg PO DAILY [facility] Last Admin: 10/07/18 09:41 Dose: 81 mg Hydralazine HCl (Apresoline) 10 mg PO QID PRN PRN Reason: for SBP> 160 Last Admin: 10/05/18 15:42 Dose: 10 mg Metronidazole (Flagyl) 500 mg in 100 mls @ 100 mls/hr IVPB Q8 [facility]; Protocol Last Admin: 10/07/18 22:57 Dose: 100 mls/hr Metoprolol Tartrate (Lopressor) 12.5 mg PO BID [facility] Last Admin: 10/07/18 17:47 Dose: 12.5 mg Oxycodone/Acetaminophen (Percocet 10/325 Mg Tab) 1 tab PO Q6H PRN PRN Reason: Pain, severe (8-10) Last Admin: 10/07/18 20:18 Dose: 1 tab Pregabalin (Lyrica) 75 mg PO BID [facility] Last Admin: 10/07/18 17:47 Dose: 75 mg Tramadol HCl (Ultram) 50 mg PO QID PRN PRN Reason: Pain, moderate (4-7) Last Admin: 10/07/18 00:24 Dose: 50 mg - Labs Labs: 10/06/18 06:10 10/06/18 06:10 PT 12.2 SECONDS (9.4-12.5) 10/05/18 09:17 INR 1.08 10/05/18 09:17 APTT 28.8 Seconds (26.9-38.3) 10/05/18 09:17 Attending/Attestation - Attestation I have personally seen and examined this patient.: Yes I have fully participated in the care of the patient.: Yes I have reviewed all pertinent clinical information, including history, physical exam and plan: Yes Notes (Text): p 10/08/18 00:51
[2018-10-08] MEDS: Oxycodone/Acetaminophen 10/325 mg Tab PO PRN ×4 (02:48→22:24)
[2018-10-08] MEDS: metroNIDAZOLE IV 500 mg/100 ml 500 MG/100 ML BAG IVPB SCH ×3 (05:43→22:24)
--- NOTE | 2018-10-08 07:45 | CP.PCM.PN ---
Subjective - Date & Time of Evaluation Date of Evaluation: 10/08/18 Time of Evaluation: 06:30 - Subjective Subjective: Awake, alert, no distress, chronic leg pain/burning still there but better Reason for consultation and follow up:Cardiac evaluation of chest pain, history of atrial fibrillation, post JEAN with cardioversion, history of stroke Seen and examined by me and Dr. Villalobos Objective - Vital Signs/Intake and Output Vital Signs (last 24 hours): Temp Pulse Resp BP Pulse Ox 98.1 F 65 18 139/86 95 10/07/18 22:00 10/07/18 22:00 10/07/18 22:00 10/07/18 22:00 10/07/18 22:00 Intake and Output: 10/08/18 10/08/18 06:59 18:59 Intake Total 620 Balance 620 - Medications Medications: Current Medications Amiodarone HCl (Cordarone) 200 mg PO DAILY [facility] Last Admin: 10/07/18 09:43 Dose: 200 mg Amlodipine Besylate (Norvasc) 10 mg PO DAILY [facility] Last Admin: 10/07/18 09:42 Dose: 10 mg Aspirin (Ecotrin) 81 mg PO DAILY [facility] Last Admin: 10/07/18 09:41 Dose: 81 mg Hydralazine HCl (Apresoline) 10 mg PO QID PRN PRN Reason: for SBP> 160 Last Admin: 10/05/18 15:42 Dose: 10 mg Metronidazole (Flagyl) 500 mg in 100 mls @ 100 mls/hr IVPB Q8 [facility]; Protocol Last Admin: 10/08/18 05:43 Dose: 100 mls/hr Metoprolol Tartrate (Lopressor) 12.5 mg PO BID [facility] Last Admin: 10/07/18 17:47 Dose: 12.5 mg Oxycodone/Acetaminophen (Percocet 10/325 Mg Tab) 1 tab PO Q6H PRN PRN Reason: Pain, severe (8-10) Last Admin: 10/08/18 02:48 Dose: 1 tab Pregabalin (Lyrica) 75 mg PO BID [facility] Last Admin: 10/07/18 17:47 Dose: 75 mg Tramadol HCl (Ultram) 50 mg PO QID PRN PRN Reason: Pain, moderate (4-7) Last Admin: 10/07/18 00:24 Dose: 50 mg - Labs Labs: 10/06/18 06:10 10/06/18 06:10 PT 12.2 SECONDS (9.4-12.5) 10/05/18 09:17 INR 1.08 10/05/18 09:17 APTT 28.8 Seconds (26.9-38.3) 10/05/18 09:17 - Constitutional Appears: Non-toxic, No Acute Distress - Head Exam Head Exam: NORMAL INSPECTION, NORMOCEPHALIC - Eye Exam Eye Exam: Normal appearance Pupil Exam: NORMAL ACCOMODATION - ENT Exam ENT Exam: Mucous Membranes Moist, Normal Exam - Respiratory Exam Respiratory Exam: Decreased Breath Sounds, Clear to Ausculation Bilateral, NORMAL BREATHING PATTERN - Cardiovascular Exam Cardiovascular Exam: +S1, +S2 - GI/Abdominal Exam GI & Abdominal Exam: Soft, Normal Bowel Sounds - Extremities Exam Extremities Exam: Full ROM, Normal Capillary Refill - Neurological Exam Neurological Exam: Alert, Awake, Oriented x3 - Psychiatric Exam Psychiatric exam: Normal Affect, Normal Mood - Skin Skin Exam: Dry, Normal Color, Warm Assessment and Plan - Assessment and Plan (Free Text) Assessment: A 62 year old male who came in to the ER due to vomiting and diarrhea. History of hypertension, tobacco and alcohol abuse, atrial fibrillation was on Xarelto and Plavix for one year then discontinued. History of JEAN with cardioversion. CVA last 10/2017,depression, chronic back pain with back surgery at [facility], leg neuropathy peripheral vascular disease post bilateral stent and bilateral iliac stenting 3-4 years ago. Awaiting for possible nerve stimulator for back pain management. Last stress test was in 2014 with normal results. Last Echo was a year ago. Troponin normal, EKG NSR with APC's, no ischemia. Ruled out acute coronary syndrome. CT of abdomen done- multiple lucent gallstones filling the gallbladder.fatty infiltration of the liver. Stress test done showed normal results, LVEF 61%. Echo done showed LVEF 51%, trace TR, small pericardial effusion. Cardiac status stable.Telemetry discontinued. Chronic leg pain relieved with Percocet. Plan: Feels better with chronic leg pain/burning PRN Percocet given Cardiac status stable Heart rate controlled Blood pressure controlled On Amiodarone 200 mg daily, Norvasc 10 mg daily, ASA 81 mg daily Lopressor 12.5 mg BID Continue current treatment Continue current medications GI on consult Discharge planning Will follow up Plan and treatment discussed with
--- NOTE | 2018-10-08 14:17 | PN ---
DATE: 10/08/2018 SUBJECTIVE: A 62-year-old male with a history of watery diarrhea, chest pain, palpitations, and burning sensation in his feet. PHYSICAL EXAMINATION: VITAL SIGNS: Currently, his temperature is 97.7, his pulse is 54, his blood pressure is 135/79, oxygen sat is 96% on room air, respiratory rate is 18. GENERAL: He is alert and oriented x3. NECK: Supple. LUNGS: Clear. HEART: Is in S1, S2 rhythm. ABDOMEN: Soft, scaphoid, positive bowel sounds. EXTREMITIES: Show no evidence of edema. ASSESSMENT AND PLAN: 1. The patient was seen by Gastrointestinal for his history of watery diarrhea, placed on Flagyl which he continues on now. These symptoms have improved and his diet has been advanced. 2. He has been seen by Cardiology, had a stress test and an echocardiogram. Stress test was reported as showing no evidence of ischemia. Echocardiogram showed an ejection fraction of 51.4% with concentric left ventricular hypertrophy, trace tricuspid regurgitation, small pericardial effusion. He has a history of paroxysmal atrial fibrillation as well. 3. He has a history of peripheral vascular disease with several stents in both legs. He continues to complain of a burning sensation in his feet. He also has a history of laminectomies done at [facility] in [place] and history of spinal stenosis. Recent recommendation by the orthopedist at [facility] according to the patient is to place a neurostimulator. We will ask Neurology to weigh in and will also get a vascular evaluation for this. He has been seen by pain management for chronic pain disorder. At the current time, he is on Apresoline, amiodarone, Ecotrin, Flagyl, Lopressor, Lyrica, Norvasc, Percocet for severe pain, and Ultram for moderate pain. All these clinical findings to date have been discussed with the patient and we will await input from Neurology and request a vascular evaluation with Dr. Fausto Gibbons. Laura Moeller MD
[2018-10-09] MEDS: Oxycodone/Acetaminophen 10/325 mg Tab PO PRN ×3 (04:15→17:12)
[2018-10-09] MEDS: metroNIDAZOLE IV 500 mg/100 ml 500 MG/100 ML BAG IVPB SCH ×3 (05:45→22:02)
[2018-10-09 07:15] LABS: BASO # 0.01 K/mm3 (0.0-2.0); BASO % 0.2 % (0.0-3.0); EOS # 0.1 (0.0-0.7); EOS % 2.5 % (1.5-5.0); HEMOGLOBIN 12.6 g/dL (14.0-18.0); LYMPH # 1.7 (1.2-3.4); LYMPH % 32.5 % (22.0-35.0); MEAN CELL VOLUME 102.1 fl (80.0-105.0); MEAN CORPUSCULAR HGB CONC 32.3 g/dl (31.0-37.0); MEAN PLATELET VOLUME 11.7 fl (7.0-11.0); MONO # 0.5 (0.1-0.6); MONO % 9.2 % (1.0-6.0); RBC 3.82 10^6/uL (3.5-6.1); RED CELL DISTRIBUTION WIDTH 13.3 % (11.5-14.5); WHITE BLOOD COUNT 5.2 10^3/uL (4.5-11.0)
--- NOTE | 2018-10-09 07:18 | CP.PCM.PN ---
Subjective - Date & Time of Evaluation Date of Evaluation: 10/09/18 Time of Evaluation: 06:35 - Subjective Subjective: Awake, alert, no distress, no distress Reason for consultation and follow up: Cardiac evaluation of chest pain, history of atrial fibrillation, post JEAN with cardioversion, history of stroke Seen and examined by me and Dr. Dhaliwal Objective - Vital Signs/Intake and Output Vital Signs (last 24 hours): Temp Pulse Resp BP Pulse Ox 98.6 F 65 18 142/72 97 10/08/18 20:53 10/08/18 20:53 10/08/18 20:53 10/08/18 20:53 10/08/18 20:53 Intake and Output: 10/09/18 10/09/18 06:59 18:59 Intake Total 660 Balance 660 - Medications Medications: Current Medications Amiodarone HCl (Cordarone) 200 mg PO DAILY [facility] Last Admin: 10/08/18 09:32 Dose: 200 mg Amlodipine Besylate (Norvasc) 10 mg PO DAILY [facility] Last Admin: 10/08/18 09:33 Dose: 10 mg Aspirin (Ecotrin) 81 mg PO DAILY [facility] Last Admin: 10/08/18 09:33 Dose: 81 mg Hydralazine HCl (Apresoline) 10 mg PO QID PRN PRN Reason: for SBP> 160 Last Admin: 10/05/18 15:42 Dose: 10 mg Metronidazole (Flagyl) 500 mg in 100 mls @ 100 mls/hr IVPB Q8 [facility]; Protocol Last Admin: 10/09/18 05:45 Dose: 100 mls/hr Metoprolol Tartrate (Lopressor) 12.5 mg PO BID [facility] Last Admin: 10/08/18 17:40 Dose: Not Given Oxycodone/Acetaminophen (Percocet 10/325 Mg Tab) 1 tab PO Q6H PRN PRN Reason: Pain, severe (8-10) Last Admin: 10/09/18 04:15 Dose: 1 tab Pregabalin (Lyrica) 75 mg PO BID [facility] Last Admin: 10/08/18 17:40 Dose: Not Given Tramadol HCl (Ultram) 50 mg PO QID PRN PRN Reason: Pain, moderate (4-7) Last Admin: 10/07/18 00:24 Dose: 50 mg - Labs Labs: 10/06/18 06:10 10/06/18 06:10 PT 12.2 SECONDS (9.4-12.5) 10/05/18 09:17 INR 1.08 10/05/18 09:17 APTT 28.8 Seconds (26.9-38.3) 10/05/18 09:17 - Constitutional Appears: Non-toxic, No Acute Distress - Head Exam Head Exam: NORMAL INSPECTION, NORMOCEPHALIC - Eye Exam Eye Exam: Normal appearance Pupil Exam: NORMAL ACCOMODATION - ENT Exam ENT Exam: Mucous Membranes Moist, Normal Exam - Respiratory Exam Respiratory Exam: Decreased Breath Sounds, Clear to Ausculation Bilateral, NORMAL BREATHING PATTERN - Cardiovascular Exam Cardiovascular Exam: +S1, +S2 - GI/Abdominal Exam GI & Abdominal Exam: Soft, Normal Bowel Sounds - Extremities Exam Extremities Exam: Full ROM, Normal Capillary Refill - Neurological Exam Neurological Exam: Alert, Awake, Oriented x3 - Psychiatric Exam Psychiatric exam: Normal Affect, Normal Mood - Skin Skin Exam: Dry, Normal Color, Warm Assessment and Plan - Assessment and Plan (Free Text) Assessment: A 62 year old male who came in to the ER due to vomiting and diarrhea. History of hypertension, tobacco and alcohol abuse, atrial fibrillation was on Xarelto and Plavix for one year then discontinued. History of JEAN with cardioversion. CVA last 10/2017,depression, chronic back pain with back surgery at [facility], leg neuropathy peripheral vascular disease post bilateral stent and bilateral iliac stenting 3-4 years ago. Awaiting for possible nerve stimulator for back pain management. Last stress test was in 2014 with normal results. Last Echo was a year ago. Troponin normal, EKG NSR with APC's, no ischemia. Ruled out acute coronary syndrome. CT of abdomen done- multiple lucent gallstones filling the gallbladder.fatty infiltration of the liver. Stress test done showed normal results, LVEF 61%. Echo done showed LVEF 51%, trace TR, small pericardial effusion. Cardiac status stable. No further cardiac work up at this point. On IV antibiotics for GI symptoms/gastroenteritis. Awaiting consult for Neuro and vascular. Plan: Cardiac status stable Heart rate controlled Blood pressure controlled On Amiodarone 200 mg daily, Norvasc 10 mg daily, ASA 81 mg daily Lopressor 12.5 mg BID Continue current treatment Continue current medications GI on consult Continue IV antibiotics as ordered Discharge planning Will follow up Plan and treatment discussed with
[2018-10-09 07:42] LABS: ALB/GLOB RATIO 1.4 (1.1-1.8); ALBUMIN 3.7 g/dL (3.0-4.8); ALT/SGPT 54 U/L (7-56); AST/SGOT 51 U/L (17-59); BLOOD UREA NITROGEN 12 mg/dL (7-21); CALCIUM 8.9 mg/dL (8.4-10.5); GFR NON-AFRICAN AMERICAN > 60
[2018-10-09 09:42] LABS: BASO # 0.01 K/mm3 (0.0-2.0); BASO % 0.2 % (0.0-3.0); EOS # 0.1 (0.0-0.7); EOS % 1.7 % (1.5-5.0); HEMOGLOBIN 13.1 g/dL (14.0-18.0); LYMPH # 1.1 (1.2-3.4); LYMPH % 23.3 % (22.0-35.0); MEAN CELL VOLUME 102.1 fl (80.0-105.0); MEAN CORPUSCULAR HEMOGLOBIN 33.7 pg (25.0-35.0); MEAN PLATELET VOLUME 11.1 fl (7.0-11.0); MONO # 0.3 (0.1-0.6); RBC 3.89 10^6/uL (3.5-6.1); RED CELL DISTRIBUTION WIDTH 13.2 % (11.5-14.5); WHITE BLOOD COUNT 4.8 10^3/uL (4.5-11.0)
--- NOTE | 2018-10-09 10:39 | CP.PCM.PN ---
<Varsha Flor - Last Filed: 10/09/18 10:40> Subjective - Date & Time of Evaluation Date of Evaluation: 10/09/18 Time of Evaluation: 08:00 - Subjective Subjective: PGY 5 GI Follow-up Pt seen and examined bedside. Denies any BM, nausea, or vomiting. Tolerating diet as ordered ( regular) Denies any fever, chills or diaphoresis ROS: 12 point ROS conducted, neg other than above Objective - Vital Signs/Intake and Output Vital Signs (last 24 hours): Temp Pulse Resp BP Pulse Ox 98.1 F 65 18 130/67 95 10/09/18 06:00 10/09/18 06:00 10/09/18 06:00 10/09/18 09:43 10/09/18 10:13 Intake and Output: 10/09/18 10/09/18 06:59 18:59 Intake Total 660 Balance 660 - Medications Medications: Current Medications Amiodarone HCl (Cordarone) 200 mg PO DAILY [facility] Last Admin: 10/09/18 09:42 Dose: 200 mg Amlodipine Besylate (Norvasc) 10 mg PO DAILY [facility] Last Admin: 10/09/18 09:43 Dose: 10 mg Aspirin (Ecotrin) 81 mg PO DAILY [facility] Last Admin: 10/09/18 09:42 Dose: 81 mg Hydralazine HCl (Apresoline) 10 mg PO QID PRN PRN Reason: for SBP> 160 Last Admin: 10/05/18 15:42 Dose: 10 mg Metronidazole (Flagyl) 500 mg in 100 mls @ 100 mls/hr IVPB Q8 [facility]; Protocol Last Admin: 10/09/18 05:45 Dose: 100 mls/hr Metoprolol Tartrate (Lopressor) 12.5 mg PO BID [facility] Last Admin: 10/09/18 09:42 Dose: 12.5 mg Oxycodone/Acetaminophen (Percocet 10/325 Mg Tab) 1 tab PO Q6H PRN PRN Reason: Pain, severe (8-10) Last Admin: 10/09/18 04:15 Dose: 1 tab Pregabalin (Lyrica) 75 mg PO BID [facility] Last Admin: 10/09/18 09:42 Dose: 75 mg Tramadol HCl (Ultram) 50 mg PO QID PRN PRN Reason: Pain, moderate (4-7) Last Admin: 10/07/18 00:24 Dose: 50 mg - Labs Labs: 10/09/18 09:30 10/09/18 06:30 PT 12.2 SECONDS (9.4-12.5) 10/05/18 09:17 INR 1.08 10/05/18 09:17 APTT 28.8 Seconds (26.9-38.3) 10/05/18 09:17 - Constitutional Appears: Well, No Acute Distress - Head Exam Head Exam: ATRAUMATIC, NORMOCEPHALIC - Eye Exam Eye Exam: EOMI, Normal appearance - ENT Exam ENT Exam: Mucous Membranes Moist, Normal Exam - Respiratory Exam Respiratory Exam: Clear to Ausculation Bilateral, NORMAL BREATHING PATTERN. absent: Rales, Rhonchi, Wheezes, Respiratory Distress - Cardiovascular Exam Cardiovascular Exam: REGULAR RHYTHM, +S1, +S2 - GI/Abdominal Exam GI & Abdominal Exam: Distended, Soft, Normal Bowel Sounds. absent: Guarding, Rigid, Tenderness, Diminished Bowel Sounds, Hyperactive Bowel Sounds, Organomegaly - Extremities Exam Extremities Exam: absent: Joint Swelling, Pedal Edema - Neurological Exam Neurological Exam: Alert, Awake, Oriented x3 - Psychiatric Exam Psychiatric exam: Normal Affect, Normal Mood - Skin Skin Exam: Dry, Intact, Normal Color, Warm Assessment and Plan - Assessment and Plan (Free Text) Assessment: 62 year old male with PMH of Alcohol abuse, Afib, CVA, HTN, Depression, and chronic back pain presenting with vomiting and diarrhea. CT A/P showed no acute intra-abdominal pathology. No prior EGD or colonoscopy. Plan: -viral gastroenteritis -elevated LFTs resolved -Ultrasound- hepatic steatosis, cholelithiasis -hepatitis panel negative -Primary will be evaluating patient for PAD and cardiac w/u. -recommend oupt follow-up for colonoscopy (age), and EGD (barretts); follow-up in 3-4 weeks, will setup as an oupt Case discussed with Dr. Paris <Bobby Paris V - Last Filed: 10/09/18 23:37> Objective - Vital Signs/Intake and Output Vital Signs (last 24 hours): Temp Pulse Resp BP Pulse Ox 98.6 F 56 L 16 118/59 L 96 10/09/18 22:07 10/09/18 22:07 10/09/18 22:07 10/09/18 22:07 10/09/18 22:07 Intake and Output: 10/09/18 10/10/18 18:59 06:59 Intake Total 400 Balance 400 - Medications Medications: Current Medications Amiodarone HCl (Cordarone) 200 mg PO DAILY [facility] Last Admin: 10/09/18 09:42 Dose: 200 mg Amlodipine Besylate (Norvasc) 10 mg PO DAILY [facility] Last Admin: 10/09/18 09:43 Dose: 10 mg Aspirin (Ecotrin) 81 mg PO DAILY [facility] Last Admin: 10/09/18 09:42 Dose: 81 mg Hydralazine HCl (Apresoline) 10 mg PO QID PRN PRN Reason: for SBP> 160 Last Admin: 10/05/18 15:42 Dose: 10 mg Metronidazole (Flagyl) 500 mg in 100 mls @ 100 mls/hr IVPB Q8 [facility]; Protocol Last Admin: 10/09/18 22:02 Dose: 100 mls/hr Metoprolol Tartrate (Lopressor) 12.5 mg PO BID [facility] Last Admin: 10/09/18 17:13 Dose: 12.5 mg Metronidazole (Flagyl) 500 mg PO Q8 [facility] Stop: 10/10/18 15:46 Last Admin: 10/09/18 22:08 Dose: Not Given Oxycodone/Acetaminophen (Percocet 10/325 Mg Tab) 1 tab PO Q6H PRN PRN Reason: Pain, severe (8-10) Last Admin: 10/09/18 17:12 Dose: 1 tab Pregabalin (Lyrica) 75 mg PO BID [facility] Last Admin: 10/09/18 17:13 Dose: 75 mg Tramadol HCl (Ultram) 50 mg PO QID PRN PRN Reason: Pain, moderate (4-7) Last Admin: 10/09/18 22:04 Dose: 50 mg - Labs Labs: 10/09/18 09:30 10/09/18 06:30 PT 12.2 SECONDS (9.4-12.5) 10/05/18 09:17 INR 1.08 10/05/18 09:17 APTT 28.8 Seconds (26.9-38.3) 10/05/18 09:17 Attending/Attestation - Attestation I have personally seen and examined this patient.: Yes I have fully participated in the care of the patient.: Yes I have reviewed all pertinent clinical information, including history, physical exam and plan: Yes Notes (Text): This is an addendum to GI consult report dictated by the GI Fellow.The patient was seen and examined earlier. Medical records, lab studies, imagings were reviewed. Last 24 hours events reviewed. Agreed with the above treatment plan as outlined in GI Fellow 's notes with the addition of the following 10/09/18 23:36
--- NOTE | 2018-10-09 21:11 | PN ---
DATE: 10/09/2018 SUBJECTIVE: A 62-year-old male admitted to [facility] with a history of chest pain and palpitations with a known history of paroxysmal atrial fibrillation and a history of loose watery stools for several days. The patient also has a history of laminectomy, spinal stenosis, peripheral vascular disease, peripheral neuropathy, burning sensation of his lower extremities. PHYSICAL EXAMINATION: VITAL SIGNS: His temperature is 97.8. His blood pressure is 130/67. His oxygen sat is 95%. His respiratory rate is 20. GENERAL: He is alert and oriented x3. NECK: Supple. LUNGS: Clear. HEART: In S1, S2 rhythm. ABDOMEN: Soft with positive bowel sounds. EXTREMITIES: Show no evidence of edema. LABORATORY DATA: Shows a WBC of 5.2, RBC 3.8, hemoglobin 12.6, hematocrit 39, platelet count 119. Manual platelet count is 116,000. Chemistries showed normal electrolytes. The BUN is 12 and creatinine is 0.8. LFTs are normal. ASSESSMENT AND PLAN: We are awaiting followup with Neurology regarding the burning sensation in the patient's feet as well as a vascular evaluation. At the same time, we will get an oncology consult because of the decrease in his platelet count, and we will continue to follow the patient. He is being followed in fact by Gastro[facility] on [facility] for his presumptive gastroenteritis. Laura Moeller MD
[2018-10-10] MEDS: Oxycodone/Acetaminophen 10/325 mg Tab PO PRN ×4 (00:09→20:26)
[2018-10-10] MEDS ORDERED: DiphenhydrAMINE 50 mg/ml Inj IVP ONE (03:20)
[2018-10-10] MEDS: metroNIDAZOLE IV 500 mg/100 ml 500 MG/100 ML BAG IVPB SCH (05:48)
--- NOTE | 2018-10-10 06:51 | CP.PCM.PN ---
Subjective - Date & Time of Evaluation Date of Evaluation: 10/10/18 Time of Evaluation: 06:25 - Subjective Subjective: easily awaken, alert, no distress, Reason for consultation and follow up: Cardiac evaluation of chest pain, history of atrial fibrillation, post JEAN with cardioversion, history of stroke Seen and examined by me and Dr. Dhaliwal Objective - Vital Signs/Intake and Output Vital Signs (last 24 hours): Temp Pulse Resp BP Pulse Ox 98.6 F 56 L 16 118/59 L 96 10/09/18 22:07 10/09/18 22:07 10/09/18 22:07 10/09/18 22:07 10/09/18 22:07 Intake and Output: 10/09/18 10/10/18 18:59 06:59 Intake Total 400 Balance 400 - Medications Medications: Current Medications Amiodarone HCl (Cordarone) 200 mg PO DAILY [facility] Last Admin: 10/09/18 09:42 Dose: 200 mg Amlodipine Besylate (Norvasc) 10 mg PO DAILY [facility] Last Admin: 10/09/18 09:43 Dose: 10 mg Aspirin (Ecotrin) 81 mg PO DAILY [facility] Last Admin: 10/09/18 09:42 Dose: 81 mg Hydralazine HCl (Apresoline) 10 mg PO QID PRN PRN Reason: for SBP> 160 Last Admin: 10/05/18 15:42 Dose: 10 mg Metronidazole (Flagyl) 500 mg in 100 mls @ 100 mls/hr IVPB Q8 [facility]; Protocol Last Admin: 10/10/18 05:48 Dose: 100 mls/hr Metoprolol Tartrate (Lopressor) 12.5 mg PO BID [facility] Last Admin: 10/09/18 17:13 Dose: 12.5 mg Metronidazole (Flagyl) 500 mg PO Q8 [facility] Stop: 10/10/18 15:46 Last Admin: 10/09/18 22:08 Dose: Not Given Oxycodone/Acetaminophen (Percocet 10/325 Mg Tab) 1 tab PO Q6H PRN PRN Reason: Pain, severe (8-10) Last Admin: 10/10/18 06:12 Dose: 1 tab Pregabalin (Lyrica) 75 mg PO BID [facility] Last Admin: 10/09/18 17:13 Dose: 75 mg Tramadol HCl (Ultram) 50 mg PO QID PRN PRN Reason: Pain, moderate (4-7) Last Admin: 10/09/18 22:04 Dose: 50 mg - Labs Labs: 10/09/18 09:30 10/09/18 06:30 PT 12.2 SECONDS (9.4-12.5) 10/05/18 09:17 INR 1.08 10/05/18 09:17 APTT 28.8 Seconds (26.9-38.3) 10/05/18 09:17 - Constitutional Appears: Non-toxic, No Acute Distress - Head Exam Head Exam: NORMAL INSPECTION, NORMOCEPHALIC - Eye Exam Eye Exam: Normal appearance Pupil Exam: NORMAL ACCOMODATION - ENT Exam ENT Exam: Mucous Membranes Moist, Normal Exam - Respiratory Exam Respiratory Exam: Decreased Breath Sounds, Clear to Ausculation Bilateral, NORMAL BREATHING PATTERN - Cardiovascular Exam Cardiovascular Exam: +S1, +S2 - GI/Abdominal Exam GI & Abdominal Exam: Soft, Normal Bowel Sounds - Extremities Exam Extremities Exam: Full ROM, Normal Capillary Refill - Neurological Exam Neurological Exam: Alert, Awake, Oriented x3 - Psychiatric Exam Psychiatric exam: Normal Affect, Normal Mood - Skin Skin Exam: Dry, Normal Color, Warm Assessment and Plan - Assessment and Plan (Free Text) Assessment: A 62 year old male who came in to the ER due to vomiting and diarrhea. History of hypertension, tobacco and alcohol abuse, atrial fibrillation was on Xarelto and Plavix for one year then discontinued. History of JEAN with cardioversion. CVA last 10/2017,depression, chronic back pain with back surgery at [facility], leg neuropathy peripheral vascular disease post bilateral stent and bilateral iliac stenting 3-4 years ago. Awaiting for possible nerve stimulator for back pain management. Last stress test was in 2014 with normal results. Last Echo was a year ago. Troponin normal, EKG NSR with APC's, no ischemia. Ruled out acute coronary syndrome. CT of abdomen done- multiple lucent gallstones filling the gallbladder.fatty infiltration of the liver. Stress test done showed normal results, LVEF 61%. Echo done showed LVEF 51%, trace TR, small pericardial effusion. On IV antibiotics for GI symptoms/gastroenteritis. Cardiac status stable. No further cardiac work up at this point. Awaiting consult for Neuro and vascular. Decreased platelet count-Hematology c onsult. Plan: No distress Cardiac status stable Heart rate controlled Blood pressure controlled On Amiodarone 200 mg daily, Norvasc 10 mg daily, ASA 81 mg daily Lopressor 12.5 mg BID Continue current treatment Continue current medications GI on consult, EGD as out patient Continue IV antibiotics as ordered Awaiting Neuro and Vascular consult Discharge planning Will follow up Plan and treatment discussed with
[2018-10-10 07:06] LABS: BASO # 0.02 K/mm3 (0.0-2.0); BASO % 0.4 % (0.0-3.0); EOS # 0.1 (0.0-0.7); EOS % 2.3 % (1.5-5.0); HEMOGLOBIN 12.6 g/dL (14.0-18.0); LYMPH # 1.8 (1.2-3.4); MEAN CELL VOLUME 101.6 fl (80.0-105.0); MEAN CORPUSCULAR HEMOGLOBIN 33.3 pg (25.0-35.0); MEAN CORPUSCULAR HGB CONC 32.8 g/dl (31.0-37.0); MEAN PLATELET VOLUME 11.7 fl (7.0-11.0); MONO # 0.4 (0.1-0.6); MONO % 8.5 % (1.0-6.0); RBC 3.78 10^6/uL (3.5-6.1); RED CELL DISTRIBUTION WIDTH 13.2 % (11.5-14.5); WHITE BLOOD COUNT 4.7 10^3/uL (4.5-11.0)
--- NOTE | 2018-10-10 15:35 | PN ---
DATE: 10/10/2018 NEUROLOGY FOLLOWUP CHIEF COMPLAINT: Followup for paraesthesia in lower extremities. SUBJECTIVE: The patient is seen and examined at bedside. He started his lower extremity burning paraesthesia and is on Lyrica currently. I explained him in detail regards to spinal cord stimulator trial and to see how Lyrica works out for him first in the to next two weeks then can consider spinal cord stimulator by who is a neurosurgeon, who did his laminectomy for lumbosacral stenosis. PAST MEDICAL HISTORY: History of hypertension, tobacco, alcohol abuse, atrial fibrillation, on Xarelto and Plavix for one year and discontinued, history of JEAN, history of cardioversion, history of TIA, depression, chronic back pain with laminectomy for lumbosacral stenosis, leg neuropathy, peripheral vascular disease, status post bilateral iliac stenting in 3 or 4 years ago. REVIEW OF SYSTEMS: A 14-point review of systems negative except in the HPI. FAMILY HISTORY: Noncontributory. ALLERGIES: NO KNOWN DRUG ALLERGIES. SOCIAL HISTORY: No illicit drug abuse, smoking, or drug abuse at this time. MEDICATIONS: Reviewed by nurses' reconciliation sheet. LABORATORY DATA: No new labs from today. PHYSICAL EXAMINATION: VITAL SIGNS: Temperature 98.9, pulse rate 64, blood pressure 150/70, respiratory rate 20, and oxygen saturation 98% on room air. GENERAL: The patient is seen up in bed in no acute distress. HEENT: Head is atraumatic and normocephalic. PERRLA. Extraocular muscles intact. NECK: Supple. No JVD. No adenopathy noted. LUNGS: Clear to auscultation. No adventitious sounds. HEART: S1 and S2, normal rate and rhythm. No murmur, rubs, or gallops. ABDOMEN: Soft, nontender, nondistended. Bowel sounds present. EXTREMITIES: No clubbing and no cyanosis. Peripheral pulses are 2+ bilaterally. NEUROLOGIC: The patient is alert and oriented to person, place, and year. Speech is fluent without any errors. Cranial nerves II through XII are intact. Motor exam; moves all extremities equally. Toes are downgoing bilaterally. Sensory exam; decreased light touch to pinprick up to the calves bilaterally. Decrease vibration of the toes. DTRs are 2+ throughout and 1 at both knees and ankles. Coordination; ibdwmg-vm-nsab is intact. No dysmetria noted. Gait is deferred for now. IMPRESSION: Bilateral lower extremity pain secondary to underlying chronic lumbosacral stenosis, status post laminectomy with underlying peripheral vascular disease, and possible underlying peripheral neuropathy. RECOMMENDATIONS: At this time we recommend: 1. Continue Lyrica 75 mg p.o. twice a day and could increase to three times a day in two weeks as needed. 2. Follow up as an outpatient for an EMG to assess the degree of neuropathy and to assess the need for spinal cord stimulator trial. 3. Follow up with , spinal surgeon/pain specialist, who I know for spinal cord stimulator trial, but await Lyrica trial first. At this time, continue current present medical management. He is clinically stable from a neuro standpoint. Andrew Cazares MD
--- NOTE | 2018-10-10 16:57 | US ---
PROCEDURE: Lower extremity TJ exam HISTORY: Peripheral vascular disease with pain and claudication. Smoker. Multiple stents. PHYSICIAN(S): Fausto Gibbons MD. FINDINGS: The right resting ABIs severely abnormal, 0.54. The left resting TJ is mildly abnormal, 0.82 The brachial systolic pressures are symmetric. There is a 33 mm difference between high thigh pressures, lower on the right. However, the right high thigh PVR waveform is normal while the left high thigh PVR waveform is moderately blunted. This raises the possibility of aortoiliac disease There is a 50 mm gradient across the left knee and a 40 mm gradient across the right knee. Findings are consistent with bilateral distal SFA, popliteal, and/or trifurcation disease. The right ankle and metatarsal waveforms are moderately to severely blunted. The left ankle and metatarsal waveforms are mildly to moderately blunted IMPRESSION: 1. Bilateral distal SFA, popliteal, and/or trifurcation disease 2. Right greater than left tibial occlusive disease. 3. Possible aortoiliac disease. 4. If clinically indicated, further evaluation with CTA runoff or conventional arteriography can be considered.
--- NOTE | 2018-10-10 18:57 | PN ---
DATE: 10/10/2018 SUBJECTIVE: This is a 62-year-old male on the medical-surgical floor. The patient initially presented with several days of loose watery stools with nausea and vomiting. Subsequently also he presented with chest pain and palpitations. He also has a history of pain, burning sensation in his feet. While in the hospital he has been seen by Neurology, Pain Management, Cardiology and Gastroenterology. OBJECTIVE: VITAL SIGNS: This morning temperature is 98.7. His blood pressure is 127/78, respiratory rate is 18, pulse is 64. LUNGS: Clear. HEART: S1, S2 rhythm. ABDOMEN: Soft with positive bowel sounds. EXTREMITIES: Show no evidence of edema. LABORATORY DATA: CBC shows a WBC of 4.7, RBC 3.78, hemoglobin 12.6, hematocrit 38.4, platelet count is 109,000. His retic count is 1.43. ASSESSMENT AND PLAN: The patient is awaiting followup with Neurology to evaluate his burning discomfort in his feet and the recommendations for or against a spine muscle nerve stimulator placement as has been recommended by his outside orthopedist; at the same time we are writing for vascular evaluation as the patient has multiple stents in his legs. It has been explained to the patient that the symptomatology that he has maybe related to multiple factors. He continues on Flagyl intravenous by Gastroenterology His gastrointestinal symptoms have improved. He is on Apresoline, amiodarone, Ecotrin, Lopressor, Lyrica, Norvasc, Percocet and tramadol. A follow up with Pain Management has also been requested. We will continue to monitor the patient closely and await input from the individual consultants. Laura Moeller MD
--- NOTE | 2018-10-10 20:38 | CON ---
DATE: 10/10/2018 HEMATOLOGY CONSULTATION HISTORY OF PRESENT ILLNESS: This is a 62-year-old man with many medical problems, underlying is the severe back pain that he has had for the last six years. With severe neuropathy, he has been through many procedures on his back. Also, he states he has stents in his vessels of his lower legs. He has been through spinal needles. He still has had problem. What he came in for now is severe diarrhea for about three to four days followed by an increasing pain with severe diarrhea. No fever. No chills. No rash. PHYSICAL EXAMINATION: SKIN: No petechiae. No bruises. No telangiectasia. HEENT: Anicteric. No mucosal lesions noted. NODES: Nonpalpable in the axillary, cervical, supraclavicular, and inguinal regions. LUNGS: Clear at present. No vertebral tenderness. ABDOMEN: Shows he is a very large man, but no specific liver, spleen, ascites, tenderness, or rebound. EXTREMITIES: No edema. CENTRAL NERVOUS SYSTEM: No focal finding. LABORATORY DATA: The platelets were 165 on admission, but have drifted down to about 109. This is also manual. His PT/PTT is normal. I do not think this is a DIC or a TTP. He is not on heparin, but he is on many other medications, they seem to be new. Also, his MCV has gone up from about 98 to 102. The peripheral smear shows no increased spherocytes and no increased fragmented cells, so I do not think this is a TTP. Also, he does drink alcohol though his alcohol level was normal when he came in. The CAT scan of the abdominal scans show some mild increased spleen changes. At this point, I am going to check vitamin B12 level. We will check a retic count. If it is high, we will check the CBCs and then observe it may be from the viral diarrhea that he presented with. I am not sure about . Joey Lazo MD
[2018-10-11] MEDS: Oxycodone/Acetaminophen 10/325 mg Tab PO PRN ×3 (02:34→15:18)
[2018-10-11 07:43] LABS: BASO # 0.02 K/mm3 (0.0-2.0); BASO % 0.4 % (0.0-3.0); EOS # 0.1 (0.0-0.7); EOS % 2.1 % (1.5-5.0); LYMPH % 36.7 % (22.0-35.0); MEAN CELL VOLUME 101.5 fl (80.0-105.0); MEAN CORPUSCULAR HEMOGLOBIN 33.4 pg (25.0-35.0); MEAN CORPUSCULAR HGB CONC 32.9 g/dl (31.0-37.0); MEAN PLATELET VOLUME 11.4 fl (7.0-11.0); MONO # 0.5 (0.1-0.6); MONO % 9.8 % (1.0-6.0); RBC 3.89 10^6/uL (3.5-6.1); RED CELL DISTRIBUTION WIDTH 13.1 % (11.5-14.5); WHITE BLOOD COUNT 5.3 10^3/uL (4.5-11.0)
--- NOTE | 2018-10-11 11:56 | CP.PCM.PN ---
Subjective - Date & Time of Evaluation Date of Evaluation: 10/11/18 Time of Evaluation: 11:00 - Subjective Subjective: Pt has chronic foot pain. He is foot pain VAS 5/10 which is better with medicine and rest and worse with weightbearing. He is going home today, and will get a spinal cord stimulator on 10/[address] Graf. THE scs, STIMULator may be good for his neuropathic pain. He should continue PT, and lyrica. He has pain despite stents in his legs for PVD and back surgery. Gradual wean from opioids is recommended. reconsult prn. Objective - Vital Signs/Intake and Output Vital Signs (last 24 hours): Temp Pulse Resp BP Pulse Ox 98.4 F 63 18 122/72 98 10/11/18 06:00 10/11/18 09:28 10/11/18 06:00 10/11/18 09:28 10/11/18 06:00 Intake and Output: 10/11/18 10/11/18 06:59 18:59 Intake Total 620 300 Balance 620 300 - Medications Medications: Current Medications Amiodarone HCl (Cordarone) 200 mg PO DAILY [facility] Last Admin: 10/11/18 09:28 Dose: 200 mg Amlodipine Besylate (Norvasc) 10 mg PO DAILY [facility] Last Admin: 10/11/18 09:28 Dose: 10 mg Aspirin (Ecotrin) 81 mg PO DAILY [facility] Last Admin: 10/11/18 09:28 Dose: 81 mg Hydralazine HCl (Apresoline) 10 mg PO QID PRN PRN Reason: for SBP> 160 Last Admin: 10/05/18 15:42 Dose: 10 mg Metoprolol Tartrate (Lopressor) 12.5 mg PO BID [facility] Last Admin: 10/11/18 09:28 Dose: 12.5 mg Oxycodone/Acetaminophen (Percocet 10/325 Mg Tab) 1 tab PO Q6H PRN PRN Reason: Pain, severe (8-10) Stop: 10/13/18 23:59 Last Admin: 10/11/18 08:28 Dose: 1 tab Pregabalin (Lyrica) 75 mg PO BID [facility] Last Admin: 10/11/18 09:28 Dose: 75 mg Tramadol HCl (Ultram) 50 mg PO QID PRN PRN Reason: Pain, moderate (4-7) Last Admin: 10/11/18 00:15 Dose: 50 mg - Labs Labs: 10/11/18 07:20 10/09/18 06:30 PT 12.2 SECONDS (9.4-12.5) 10/05/18 09:17 INR 1.08 10/05/18 09:17 APTT 28.8 Seconds (26.9-38.3) 10/05/18 09:17 Assessment and Plan - Assessment and Plan (Free Text) Assessment: chronic foot pain, possible CRPS Plan: 1. PT 2. F/u with Dr Moeller and Dr Graf 3. SCS trial 4. Cont Lyrica
[2018-10-11 14:45] VITALS: BP 115/72; PULSE 62; RESP 22; TEMP 98.1; O2SAT 96
--- NOTE | 2018-10-11 19:00 | PN ---
DATE: 10/11/2018 LOCATION: Room 564, bed 2. REASON FOR CONSULTATION: Followup chest pain, history of paroxysmal atrial fibrillation, history of cardiovascular accident, status post JEAN cardioversion in the past, obesity. SUBJECTIVE: The patient complaining of back pain. Otherwise, he denies any chest pain, shortness of breath or palpitations. The patient is obese and also has history of radiculopathy. He had back surgery in the past. PHYSICAL EXAMINATION: VITAL SIGNS: Blood pressure 122/72, respirations 18, pulse 63, temperature 98.4. HEENT: Head is normocephalic. Eyes, pupil normal. Conjunctivae normal. Nose and throat normal. NECK: JVP low. Carotids equal. THORAX: AP diameter normal. LUNGS: Clear. CARDIOVASCULAR: S1 and S2. ABDOMEN: Soft, protuberant. No organomegaly. EXTREMITIES: No clubbing, no cyanosis. LABORATORY DATA: WBC 5.3, hemoglobin 13, hematocrit 39.5, platelets 117. Sodium 139, potassium 4.6, BUN 12, creatinine 0.8. AST 51, ALT 54, total protein 6.4, albumin 3.7, vitamin B12 3330. TSH 0.58. Stress test done on 10/06/2018 it was normal, ejection fraction was 60%. Echo was done also 10/06/2018, which showed normal size LV, moderate left ventricular hypertrophy, ejection fraction 51%, diastolic dysfunction of LV, , RVSP 14 mmHg. DIAGNOSES: Chest pain, back pain, radiculopathy, obesity, history of severe peripheral arterial disease, multiple stents insertion, history of expressive aphasia after having a stroke in October 2017, history of JEAN cardioversion to sinus rhythm from atrial fibrillation. PLAN: The patient still complains of back pain, but he is asymptomatic from cardiac point of view. The patient on amiodarone 200 mg orally daily, aspirin 81 daily, metoprolol 12.5 twice a day, Lyrica 75 mg twice a day, amlodipine 10 mg daily. We will continue present therapy. Told the patient to lose weight. Amanda Villalobos MD
--- NOTE | 2018-10-13 01:14 | DS ---
HOSPITAL COURSE: This 62-year-old male admitted to [facility] with a history of loose watery diarrhea and vomiting for several days, pain in his lower legs and feet, chest pain and palpitations. While in the hospital, the patient was seen by pain management, , Cardiology, Dr. Dhaliwal and DrAshley , Neurology, Dr. Cazares, interventional radiology, vascular Dr. Fausto Gibbons, Oncology, Dr. Joey Lazo, Gastroenterology Dr. Paris. The patient was found and felt to have gastroenteritis, was placed on Flagyl with clinical improvement and is found to have gallstones with fatty liver. He is known to have multiple stents in his legs with known vascular insufficiency and peripheral vascular disease. He is also known to have spinal stenosis and laminectomies of the spine, history of paroxysmal atrial fibrillation. Cardiology cleared the patient in anticipation of a possibility of spectacle stimulator to be placed by who he had seen before at the [facility]. He was advised to consider discussion with this doctor and follow up with Neurology before proceeding with the stimulator. He was also advised by the vascular evaluation that he would benefit from further evaluation, but that he should start his rehab therapy. His pain management recommended the use of the Percocet 10/325 for severe pain. He would be going home on amiodarone 20 mg daily, Ecotrin 81 mg daily, Lopressor 12.5 mg b.i.d., Norvasc 10 mg daily, Percocet 10/325 mg every 6 p.r.n. At the time of discharge, his insurance company was not approving the Lyrica. This would be followed up as an outpatient. This was discussed with the patient in full understanding what the individual consultants recommended and the pros and cons where to proceed with a neurostimulator or not, this was up to the patient to decide. Advised to follow up as an outpatient. His low platelet count will be followed up. Dr. Lazo recommended that his B12 folate levels were normal and be followed as an outpatient. Laura Moeller MD
== END 2018-10-11 18:11 | disposition home health service (06) | DRG 813 ==
LOC: ED 08:20 → ERH 11:10 → 2RNO 14:57 → 5RNO 10-07 15:27
PROVIDERS: ADMIT Internal Medicine; ATTEND Internal Medicine
DX: A08.4 Viral intestinal infection, unspecified (principal); I07.1 Rheumatic tricuspid insufficiency; I73.9 Peripheral vascular disease, unspecified; I69.320 Aphasia following cerebral infarction; I10 Essential (primary) hypertension; K76.0 Fatty (change of) liver, not elsewhere classified; K80.20 Calculus of gallbladder without cholecystitis without obstruction; M48.07 Spinal stenosis, lumbosacral region; G62.9 Polyneuropathy, unspecified; I48.0 Paroxysmal atrial fibrillation; J45.909 Unspecified asthma, uncomplicated; M54.10 Radiculopathy, site unspecified; F17.210 Nicotine dependence, cigarettes, uncomplicated; R07.89 Other chest pain; F32.9 Major depressive disorder, single episode, unspecified; E78.5 Hyperlipidemia, unspecified; E66.01 Morbid (severe) obesity due to excess calories; Z79.82 Long term (current) use of aspirin; Z79.01 Long term (current) use of anticoagulants; Z68.38 Body mass index [BMI] 38.0-38.9, adult; Z95.828 Presence of other vascular implants and grafts

== ENCOUNTER 2018-12-06 09:45 | Inpatient (IN) | payer OTHER ==
[2018-12-06 09:45] VITALS: BMI 38.5
[2018-12-06] MEDS ORDERED: Oxycodone/Acetaminophen 5/325 mg Tab PO ONE (11:25)
--- NOTE | 2018-12-06 11:28 | ED PDOC ---
Arrival/HPI - General Historian: Patient - History of Present Illness Narrative History of Present Illness (Text): 12/06/18 11:32 Patient is a 63 year old male with past medical history of CVA (10/2017), peripheral neuropathy, hypertension, asthma, and chronic lower back pain and alcohol dependence presenting with chief complaint of bilateral lower extremity pain. Pain has been ongoing since stent placement last year and described as a burning sensation. Patient has tried over the counter analgesics with no improvement. He states that he received Percocet last time he was in the emergency department which helped relieve his pain. Patient has followed up with primary medical doctor and was also recommended to go to [facility] for placement of spinal cord stimulator but has been unable to follow up due to social issues. Time/Duration: > month Symptom Onset: Gradual Symptom Course: Unchanged Quality: Burning <Paul Arriaza - Last Filed: 12/06/18 11:45> <Briana Kimble - Last Filed: 12/06/18 17:22> - General Chief Complaint: Lower Extremity Problem/Injury Time Seen by Provider: 12/06/18 11:04 Past Medical History - Provider Review Nursing Documentation Reviewed: Yes - Infectious Disease Hx of Infectious Diseases: None - Tetanus Immunization Tetanus Immunization: Unknown - Cardiac Hx Hypertension: Yes - Pulmonary Hx Asthma: Yes - Neurological Hx Neurological Disorder: No Hx Alzheimer's Disease: No HX Cerebrovascular Accident: No Hx Dementia: No Hx Dizziness: No Hx Meningitis: No Hx Migraine: No Hx Parkinson's Disease: No Hx Seizures: No Hx Transient Ischemic Attacks (TIA): No - HEENT Hx HEENT Disorder: No Other/Comment: sinus issues due to enviromental allergies - Renal Hx Renal Disorder: No - Endocrine/Metabolic Hx Hyperthyroidism: No Hx Hypothyroidism: No - Hematological/Oncological Hx Blood Disorders: No - Integumentary Hx Dermatological Disorder: No - Musculoskeletal/Rheumatological Hx Arthritis: Yes (x 3yrs) Hx Back Pain: Yes (x 3 yrs) Hx Falls: No Hx Unsteady Gait: Yes (due to knee paon) Other/Comment: spinal stenosis - Gastrointestinal Hx Gastrointestinal Disorders: No - Genitourinary/Gynecological Hx Genitourinary Disorders: No Hx Reproductive Disorders: No - Psychiatric Hx Psychophysiologic Disorder: No Hx Substance Use: Yes Other/Comment: hx of etoh drinks 6-12 beers a day - Surgical History Hx Cardiac Catheterization: No Hx Coronary Stent: No Other/Comment: spinal surgery - Anesthesia Hx Anesthesia: Yes Hx Anesthesia Reactions: No Hx Malignant Hyperthermia: No - Suicidal Assessment Feels Threatened In Home Enviroment: No <Paul Arriaza - Last Filed: 12/06/18 11:45> Family/Social History - Physician Review Nursing Documentation Reviewed: Yes Family/Social History: No Known Family HX Smoking Status: Heavy Smoker > 10 Cigarettes Daily Hx Alcohol Use: Yes (6-12 bottles of beer daily) Hx Substance Use: Yes Hx Substance Use Treatment: No <Natty Arriazaivis Roa - Last Filed: 12/06/18 11:45> Allergies/Home Meds <Natty Arriazaivis Roa - Last Filed: 12/06/18 11:45> <Briana Kimble - Last Filed: 12/06/18 17:22> Allergies/Adverse Reactions: Allergies enviromental Allergy (Mild, Uncoded 10/05/18 13:27) COUGH Review of Systems - Review of Systems Respiratory: Normal Cardiovascular: Normal Musculoskeletal: Other (LE pain) <Natty Arriazaivis Roa - Last Filed: 12/06/18 11:45> Physical Exam - Physical Exam Narrative Physical Exam (Text): Impression: bilateral lower extremity pain Differential Diagnosis included but are not limited to: PVD, cellulitis Plan: - Percocet - Social work referral - Reassess and disposition Prior Visits: Notes and results from previous visits were reviewed. Progress Notes: Patient hemodynamically stable, symptoms are chronic. Management options discussed with patient. Patient to follow up with primary medical doctor and at [facility] for spinal cord stimulator. Vital Signs Reviewed: Yes Vital Signs Temp Pulse Resp BP Pulse Ox 12/06/18 09:45 98.1 F 66 18 144/69 94 L Temperature: Afebrile Blood Pressure: Normal Pulse: Regular Respiratory Rate: Normal Appearance: Positive for: Non-Toxic Pain Distress: Mild Mental Status: Positive for: Alert and Oriented X 3 - Systems Exam Head: Present: Atraumatic, Normocephalic Pupils: Present: PERRL Extroacular Muscles: Present: EOMI Conjunctiva: Present: Normal Mouth: Present: Moist Mucous Membranes Respiratory/Chest: Present: Wheezes (mild). No: Respiratory Distress, Accessory Muscle Use, Decreased Breath Sounds Cardiovascular: Present: Regular Rate and Rhythm, Normal S1, S2. No: Tachycardic Abdomen: Present: Normal Bowel Sounds. No: Tenderness, Distention, Rebound Lower Extremity: Present: Other (DPPT diminished +1/4 pulses bilaterally obtained with doppler ) Neurological: Present: GCS=15, CN II-XII Intact, Speech Normal, Motor Func Grossly Intact Skin: Present: Warm, Dry Psychiatric: Present: Alert, Oriented x 3, Depressed Mood <Paul Arriaza - Last Filed: 12/06/18 11:45> Vital Signs Temp Pulse Resp BP Pulse Ox 12/06/18 09:45 98.1 F 66 18 144/69 94 L <Briana Kimble - Last Filed: 12/06/18 17:22> Medical Decision Making - Medication Orders Current Medication Orders: Oxycodone/Acetaminophen (Percocet 5/325 Mg Tab) 1 tab PO ONCE ONE Stop: 12/06/18 11:26 <Paul Arriaza L - Last Filed: 12/06/18 11:45> ED Course and Treatment: 12/06/18 12:06 Seen by the resident and then evaluated by me. 63 y/o M who has hx of PVD with stents with chronic b/l leg pain. No new trauma. No focal weakness. No urinary or bowel complaints. Has previously been given referral to pain mgmt and Nerve stimulator group by PMD for chronic pain. He is presenting with chronic pain and requesting percocet. PMD Dr. Moeller evaluated. Given medication for chronic pain. Upon discharge requested to speak to as he is homeless. He was referred to [facility]. Upon discharge again he requested to speak to psych because "I'm not right in the head" Denies SI/HI/. Psych aware. 12/06/18 12:34 Cxray negative. EKG shows nsr at 63bpm with sinus arrhythmia. Evaluated by nichole cervantes who reported that patient reported clear suicidal ideation. Pending labs and dispo 12/06/18 14:47 Labs show elevated lfts but can follow-up as outpatient. UA shows nitrates but no leukocytes, 0-2 wbc. Normal wbc and afebrile. Denies dysuria. Can follow- up Ucx on psych floor. Medically cleared to be admitted to psych. PES screener aware to follow-up ucx. 12/06/18 17:22 Accepted by psych. Admitted under Dr. Fitzgerald as reqeusted by PMD Dr. Moeller - Medication Orders Current Medication Orders: Discontinued Medications Oxycodone/Acetaminophen (Percocet 5/325 Mg Tab) 1 tab PO ONCE ONE Stop: 12/06/18 11:26 <Briana Kimble - Last Filed: 12/06/18 17:22> Disposition/Present on Arrival - Present on Arrival Any Indicators Present on Arrival: No History of DVT/PE: No History of Uncontrolled Diabetes: No Urinary Catheter: No History of Decub. Ulcer: No History Surgical Site Infection Following: None - Disposition Have Diagnosis and Disposition been Completed?: Yes Disposition Time: 11:31 <Paul Arriaza - Last Filed: 12/06/18 11:45> - Present on Arrival Any Indicators Present on Arrival: No - Disposition Have Diagnosis and Disposition been Completed?: Yes Patient Plan: Admission <Briana Kimble - Last Filed: 12/06/18 17:22> - Disposition Diagnosis: Peripheral vascular disease, Chronic leg pain, Depression Disposition: HOSPITALIZED Patient Problems: Current Active Problems Problem Status Onset Peripheral vascular disease Acute Chronic leg pain Acute Depression Acute Condition: FAIR Discharge Instructions (ExitCare): Peripheral Vascular Stenting, Chronic Pain Additional Instructions: Please follow up with your primary medical doctor Dr. Laura Moeller within 3-5 days and also follow up at [facility] with Dr. Graf for placement of spinal cord stimulator Please take medications as prescribed Return to ED if symptoms worsen Prescriptions: traMADol [Ultram] 50 mg PO TID #15 tab Referrals: Laura Moeller MD [Primary Care Provider] - Follow up with primary
--- NOTE | 2018-12-06 12:34 | RAD ---
Date of service: 12/06/2018 HISTORY: psych COMPARISON: 10/06/2018 TECHNIQUE: 1 view obtained. FINDINGS: LUNGS: No active pulmonary disease. PLEURA: No significant pleural effusion identified, no pneumothorax apparent. CARDIOVASCULAR: Minimal aortic calcification Normal cardiac size. No pulmonary vascular congestion. OSSEOUS STRUCTURES: No significant abnormalities. VISUALIZED UPPER ABDOMEN: Normal. OTHER FINDINGS: None. IMPRESSION: No active disease.
[2018-12-06 13:16] LABS: BASO # 0.01 K/mm3 (0.0-2.0); BASO % 0.2 % (0.0-3.0); EOS % 0.4 % (1.5-5.0); HEMOGLOBIN 17.3 g/dL (14.0-18.0); MEAN CELL VOLUME 100.2 fl (80.0-105.0); MEAN CORPUSCULAR HEMOGLOBIN 35.5 pg (25.0-35.0); MEAN CORPUSCULAR HGB CONC 35.4 g/dl (31.0-37.0); MONO # 0.5 (0.1-0.6); MONO % 9.1 % (1.0-6.0); RBC 4.88 10^6/uL (3.5-6.1); RED CELL DISTRIBUTION WIDTH 13.4 % (11.5-14.5); WHITE BLOOD COUNT 5.2 10^3/uL (4.5-11.0)
[2018-12-06 13:27] LABS: ALB/GLOB RATIO 1.3 (1.1-1.8); ALBUMIN 4.3 g/dL (3.0-4.8); ALT/SGPT 142 U/L (7-56); AST/SGOT 117 U/L (17-59); BLOOD UREA NITROGEN 11 mg/dL (7-21); CALCIUM 9.2 mg/dL (8.4-10.5); GFR NON-AFRICAN AMERICAN > 60; HDL CHOLESTEROL 79 mg/dL (29-60)
[2018-12-06 13:38] LABS: LDL CHOLESTEROL 78 mg/dL (0-129)
[2018-12-06 14:27] LABS: PH,URINE 5.5 (4.7-8.0); URINE BILIRUBIN SMALL (NEGATIVE); URINE BLOOD NEGATIVE (NEGATIVE); URINE GLUCOSE (UA) NEGATIVE (NEGATIVE); URINE LEUKOCYTE ESTERASE NEGATIVE Leu/uL (NEGATIVE); URINE PROTEIN 30 mg/dL (<30 mg/dL)
[2018-12-06 14:31] LABS: URINE APPEARANCE SLIGHT-CLOUDY (CLEAR); URINE COLOR LIGHT BROWN (YELLOW)
[2018-12-06 14:43] LABS: URINE BACTERIA MANY /hpf; URINE EPITHELIAL CELLS 0 - 2 /hpf (0-5); URINE RBC 0 - 2 /hpf (0-2); URINE WBC 0 - 2 /hpf (0-6)
[2018-12-06 14:44] LABS: URINE AMORPHOUS SEDIMENT FEW /hpf
[2018-12-06 15:51] LABS: BENZODIAZEPINES, UR NEGATIVE (NEGATIVE); OPIATES, UR NEGATIVE (NEGATIVE)
[2018-12-06 15:52] LABS: BARBITURATES, UR NEGATIVE (NEGATIVE); PHENCYCLIDINE, UR NEGATIVE (NEGATIVE)
[2018-12-06] MEDS ORDERED: Oxycodone/Acetaminophen 5/325 mg Tab PO STA (16:23)
[2018-12-06 16:37] VITALS: O2SAT 95
--- NOTE | 2018-12-06 17:05 | CARD ---
APPROVED REPORT Date of service: 12/06/2018 EKG Measurement Heart [id number] <Conclusion> Normal sinus rhythm with sinus arrhythmia Normal ECG
[2018-12-06] MEDS ORDERED: Alum-Mag Hydrox-Simethicone Susp (30 mL) PO PRN (21:20)
[2018-12-06] MEDS ORDERED: Magnesium Hydroxide Susp 30 ml UD PO PRN (21:20)
[2018-12-06] MEDS: Oxycodone/Acetaminophen 10/325 mg Tab PO PRN (21:49)
--- NOTE | 2018-12-06 23:41 | PCM.BM ---
<Bert Moser C - Last Filed: 12/06/18 23:38> Treatment Plan Problems - Problems identified on initial assessmt INEFFECTIVE COPING Date Initiated: 12/06/18 Time Initiated: 21:00 Assessment reference: NA Status: Active Priority: 1 HOPELESSNESS/HELPLESNESS Date Initiated: 12/06/18 Time Initiated: 21:00 Assessment reference: NA Status: Active Priority: 2 ALTERATION IN COMFORT Date Initiated: 12/06/18 Time Initiated: 21:00 Assessment reference: NA Status: Active Priority: 3 Treatment assets and liabiliti Patient Assests: adapts well, cooperative, educated, insightful, motivated, self-reliant, negotiates basic needs, cognitively intact Patient Liabilities: live alone, physical pain, financial problems, relationship conflicts, medical problems - Milieu Protocol Maintain good personal hygiene: every other day Encourage regular showers, every shift Remind patient to perform daily oral care, every shift Assist patient to perform ADL's Maintain personal safety: every other day Educate patient to report safety concerns to staff, every other day Monitor environment for contraband/sharps Medication safety: Monitor for expected outcome, potential side effects: every other day, Assess barriers to learning: every other day, Assess readiness for medication education: every other day Family Contact Family involvement: Family/SO is involved Family contact: Patient agrees to contact Discharge/Continuing Care - Education Needs Education Needs: Patient Medication, Patient Diagnosis/Disease Process, Patient Coping Skills, Patient Placement options, Patient Community resources, Patient Activities of Daily Living, Patient Pain, Patient Uses of Medical Equipment, Patient Health Practices/Safety, Patient Personal Hygiene/Grooming, Patient Aftercare Safety Plan - Discharge Discharge Criteria: Tolerates medication w/o severe side effects, Free of Suicidal thoughts, Normal sleep pattern, Ability to care for self <Diane Ward Y - Last Filed: 12/08/18 15:10> Family Contact Family contact: Patient agrees to contact
[2018-12-07] MEDS: Oxycodone/Acetaminophen 10/325 mg Tab PO PRN ×4 (03:28→22:00)
[2018-12-07 07:59] LABS: ALB/GLOB RATIO 1.3 (1.1-1.8); ALBUMIN 3.8 g/dL (3.0-4.8); BILIRUBIN,DIRECT 0.3 mg/dL (0.0-0.4)
--- NOTE | 2018-12-07 08:59 | HP ---
DATE OF EXAM: 12/06/2018 The patient was seen in the emergency room. HISTORY OF PRESENT ILLNESS: He is a 63-year-old white male who had been for many years. He appears depressed. He also complains of chronic back problems from his years of work. He complains of tremulousness. I have reviewed his situation with nursing in the emergency room and with Dr. Moeller. The patient will be admitted to Psychiatry. I have started the patient on low-dose Klonopin and we will monitor to see how his level of anxiety and depression respond to this acute interventions. We will continue further evaluation and treatment in the a.m. at which time hopefully we will have more success with our technologic events. Blood pressure 156/62, temperature 98, and pulse 80. The patient is also considered to be in alcohol withdrawal syndrome and is having chest pain and has a history of peripheral vascular disease. Fabian Fitzgerald MD/ PhD
--- NOTE | 2018-12-07 12:24 | CP.PCM.CON ---
<Emilee Gaona - Last Filed: 12/07/18 12:43> History of Present Illness - History of Present Illness History of Present Illness: Emilee Gaona, PGY-1, GI Consult Note for Dr. Paris 63 year old male with past medical history of CVA, peripheral neuropathy, hypertension, asthma, chronic lower back pain, alcohol dependence, atrial fibrillation presents with bilateral lower extremity pain for 6 years after having an epidural. He has had multiple stents placed in bilateral lower extremities. GI was consulted for elevation in LFTs which has been elevated in the past in 2013. Patient denies any nausea, vomiting, abdominal pain, constipation, or diarrhea. He reports normal bowel movements. His last drink was 2 days ago and he had 6-7 drinks that day. PMH: as stated above PSH: back surgery FMHx: denies SHx: drinks 6-7 drinks every other day, smokes 1 PPD for 40 years, denies recreational drug use Allergies: NKDA PMD: Dr. Walker Denies prior endoscopy or colonoscopy. Review of Systems - Review of Systems Review of Systems: except as mentioned in HPI Past Patient History - Infectious Disease Hx of Infectious Diseases: None - Tetanus Immunizations Tetanus Immunization: Unknown - Past Social History Smoking Status: Heavy Smoker > 10 Cigarettes Daily - CARDIAC Hx Cardiac Disorders: Yes Hx Hypertension: No - PULMONARY Hx Respiratory Disorders: No Hx Tuberculosis: No - NEUROLOGICAL HX Cerebrovascular Accident: No Hx Seizures: No - HEENT Hx HEENT Problems: No Other/Comment: sinus issues due to enviromental allergies - RENAL Hx Chronic Kidney Disease: No - ENDOCRINE/METABOLIC Hx Hypothyroidism: No - HEMATOLOGICAL/ONCOLOGICAL Hx Cancer: No Hx Human Immunodeficiency Virus (HIV): No - INTEGUMENTARY Hx Dermatological Problems: No - MUSCULOSKELETAL/RHEUMATOLOGICAL Hx Arthritis: Yes (x 3yrs) Hx Back Pain: Yes (x 3 yrs) Hx Falls: No Hx Unsteady Gait: Yes (due to knee paon) Other/Comment: spinal stenosis - GASTROINTESTINAL Hx Gastrointestinal Disorders: No - GENITOURINARY/GYNECOLOGICAL Hx Sexually Transmitted Disorders: No - PSYCHIATRIC Hx Physical Abuse: No Hx Substance Use: Yes - SURGICAL HISTORY Hx Surgeries: Yes Hx Cardiac Catheterization: No Hx Coronary Stent: No Other/Comment: spinal surgery - ANESTHESIA Hx Anesthesia: Yes Hx Anesthesia Reactions: No Hx Malignant Hyperthermia: No Meds Allergies/Adverse Reactions: Allergies Allergy/AdvReac Type Severity Reaction Status Date / Time enviromental Allergy Mild COUGH Uncoded 10/05/18 13:27 - Medications Medications: Current Medications Acetaminophen (Tylenol 325mg Tab) 650 mg PO Q4H PRN PRN Reason: Pain, Mild (1-3) Al Hydrox/Mg Hydrox/Simethicone (Maalox Plus 30 Ml) 30 ml PO DAILY PRN PRN Reason: Upset Stomach Last Admin: 12/06/18 21:51 Dose: 30 ml Amiodarone HCl (Cordarone) 200 mg PO DAILY [facility] Last Admin: 12/07/18 09:41 Dose: 200 mg Amlodipine Besylate (Norvasc) 10 mg PO DAILY [facility] Last Admin: 12/07/18 08:23 Dose: 10 mg Aspirin (Ecotrin) 81 mg PO DAILY [facility] Last Admin: 12/07/18 08:20 Dose: 81 mg Clonazepam (Klonopin) 0.5 mg PO BID [facility]; Protocol Last Admin: 12/07/18 08:16 Dose: Not Given Clonazepam (Klonopin) 0.5 mg PO [facility]; Protocol Last Admin: 12/07/18 09:43 Dose: 0.5 mg Magnesium Hydroxide (Milk Of Magnesia) 30 ml PO DAILY PRN PRN Reason: Constipation Metoprolol Tartrate (Lopressor) 12.5 mg PO BID [facility] Last Admin: 12/07/18 08:20 Dose: 12.5 mg Oxycodone/Acetaminophen (Percocet 10/325 Mg Tab) 1 tab PO Q6H PRN PRN Reason: Pain, severe (8-10) Last Admin: 12/07/18 09:41 Dose: 1 tab Physical Exam - Constitutional Appears: Well, Non-toxic, No Acute Distress - Head Exam Head Exam: ATRAUMATIC, NORMAL INSPECTION, NORMOCEPHALIC - Eye Exam Eye Exam: EOMI, PERRL - ENT Exam ENT Exam: Mucous Membranes Moist - Respiratory Exam Respiratory Exam: Clear to Auscultation Bilateral, NORMAL BREATHING PATTERN - Cardiovascular Exam Cardiovascular Exam: REGULAR RHYTHM, RRR, +S1, +S2 - GI/Abdominal Exam GI & Abdominal Exam: Normal Bowel Sounds, Soft. absent: Distended, Firm, Hernia, Mass, Tenderness - Extremities Exam Extremities exam: Positive for: full ROM, normal inspection. Negative for: pedal edema - Neurological Exam Neurological exam: Alert, CN II-XII Intact, Oriented x3 - Psychiatric Exam Psychiatric exam: Depressed - Skin Skin Exam: Dry, Intact Results - Vital Signs Recent Vital Signs: Last Vital Signs Temp 98.1 F 12/07/18 07:24 Pulse 75 12/07/18 08:20 Resp 20 12/07/18 07:24 BP 133/67 12/07/18 08:23 Pulse Ox 95 12/06/18 20:19 - Labs Result Diagrams: 12/06/18 13:00 12/06/18 13:00 Labs: Laboratory Results - last 24 hr 12/06/18 12/06/18 12/06/18 13:00 13:00 13:00 WBC 5.2 RBC 4.88 Hgb 17.3 D Hct 48.9 MCV 100.2 MCH 35.5 H MCHC 35.4 RDW 13.4 Plt Count 125 MPV 11.0 Neut % (Auto) 70.3 H Lymph % (Auto) 20.0 L [place] % (Auto) 9.1 H Eos % (Auto) 0.4 L Baso % (Auto) 0.2 Lymph # (Auto) 1.0 L [place] # (Auto) 0.5 Eos # (Auto) 0.0 Baso # (Auto) 0.01 Absolute Neuts (auto) 3.63 Sodium 137 Potassium 4.5 Chloride 104 Carbon Dioxide 25 Anion Gap 13 BUN 11 Creatinine 0.6 L Est GFR ( Amer) > 60 Est GFR (Non-Af Amer) > 60 Random Glucose 87 Fasting Glucose Calcium 9.2 Total Bilirubin 1.1 Direct Bilirubin AST 117 H D ALT 142 H Alkaline Phosphatase 94 Total Protein 7.6 Albumin 4.3 Globulin 3.2 Albumin/Globulin Ratio 1.3 Triglycerides 64 Cholesterol 155 LDL Cholesterol Direct 78 HDL Cholesterol 79 H TSH 3rd Generation Urine Color Urine Appearance Urine pH Ur Specific Mayo Urine Protein Urine Glucose (UA) Urine Ketones Urine Blood Urine Nitrate Urine Bilirubin Urine Urobilinogen Ur Leukocyte Esterase Urine RBC Urine WBC Ur Epithelial Cells Amorphous Sediment Urine Bacteria Urine Other Urine Opiates Screen Urine Methadone Screen Ur Barbiturates Screen Ur Phencyclidine Scrn Ur Amphetamines Screen U Benzodiazepines Scrn U Oth Cocaine Metabols U Cannabinoids Screen Alcohol, Quantitative < 10 12/06/18 12/06/18 12/07/18 14:10 15:20 07:20 WBC RBC Hgb Hct MCV MCH MCHC RDW Plt Count MPV Neut % (Auto) Lymph % (Auto) [place] % (Auto) Eos % (Auto) Baso % (Auto) Lymph # (Auto) [place] # (Auto) Eos # (Auto) Baso # (Auto) Absolute Neuts (auto) Sodium Potassium Chloride Carbon Dioxide Anion Gap BUN Creatinine Est GFR ( Amer) Est GFR (Non-Af Amer) Random Glucose Fasting Glucose 104 Calcium Total Bilirubin 1.2 Direct Bilirubin 0.3 AST 68 H D ALT 101 H Alkaline Phosphatase 76 Total Protein 6.7 Albumin 3.8 Globulin 2.9 Albumin/Globulin Ratio 1.3 Triglycerides 74 Cholesterol 132 LDL Cholesterol Direct 68 HDL Cholesterol 61 H TSH 3rd Generation Urine Color Light brown Urine Appearance Slight-cloudy Urine pH 5.5 Ur Specific Mayo >= 1.030 Urine Protein 30 H Urine Glucose (UA) Negative Urine Ketones 15 H Urine Blood Negative Urine Nitrate Positive H Urine Bilirubin Small H Urine Urobilinogen 1.0 H Ur Leukocyte Esterase Negative Urine RBC 0 - 2 Urine WBC 0 - 2 Ur Epithelial Cells 0 - 2 Amorphous Sediment Few Urine Bacteria Many Urine Other Fiber Urine Opiates Screen Negative Urine Methadone Screen Negative Ur Barbiturates Screen Negative Ur Phencyclidine Scrn Negative Ur Amphetamines Screen Negative U Benzodiazepines Scrn Negative U Oth Cocaine Metabols Negative U Cannabinoids Screen Negative Alcohol, Quantitative 12/07/18 07:20 WBC RBC Hgb Hct MCV MCH MCHC RDW Plt Count MPV Neut % (Auto) Lymph % (Auto) [place] % (Auto) Eos % (Auto) Baso % (Auto) Lymph # (Auto) [place] # (Auto) Eos # (Auto) Baso # (Auto) Absolute Neuts (auto) Sodium Potassium Chloride Carbon Dioxide Anion Gap BUN Creatinine Est GFR ( Amer) Est GFR (Non-Af Amer) Random Glucose Fasting Glucose Calcium Total Bilirubin Direct Bilirubin AST ALT Alkaline Phosphatase Total Protein Albumin Globulin Albumin/Globulin Ratio Triglycerides Cholesterol LDL Cholesterol Direct HDL Cholesterol TSH 3rd Generation 1.67 Urine Color Urine Appearance Urine pH Ur Specific Mayo Urine Protein Urine Glucose (UA) Urine Ketones Urine Blood Urine Nitrate Urine Bilirubin Urine Urobilinogen Ur Leukocyte Esterase Urine RBC Urine WBC Ur Epithelial Cells Amorphous Sediment Urine Bacteria Urine Other Urine Opiates Screen Urine Methadone Screen Ur Barbiturates Screen Ur Phencyclidine Scrn Ur Amphetamines Screen U Benzodiazepines Scrn U Oth Cocaine Metabols U Cannabinoids Screen Alcohol, Quantitative Assessment & Plan - Assessment and Plan (Free Text) Assessment: 63 year old male with past medical history of CVA, peripheral neuropathy, hypertension, asthma, chronic lower back pain, alcohol dependence, atrial fibrillation presents with bilateral lower extremity pain for 6 years. GI was consulted for elevated LFTs #Elevated LFTs #Alcohol dependence #History of paroxysmal atrial fibrillation #Hypertension #CVA Plan: -Will continue to trend LFTs and order Hepatitis panel, anti-smooth muscle Ab, anti-mitochondrial Ab, anti microsomal Ab, iron, ferritin, TIBC, HFE gene, ceruloplasmin, and INR for further workup and diagnosis. -LFTs improved today -Patient has significant alcohol history, and elevated LFTs could be related to that. Serum alcohol was negative on admission was last drink was 2 days ago. UDS was negative. -Patient is currently taking home amiodarone, which could potentially be causing worsening of liver. -Patient is tolerating regular diet well. Patient plan discussed with Dr. Paris. - Date & Time Date: 12/07/18 Time: 12:25 <Bobby Paris V - Last Filed: 12/07/18 23:27> Meds - Medications Medications: Current Medications Acetaminophen (Tylenol 325mg Tab) 650 mg PO Q4H PRN PRN Reason: Pain, Mild (1-3) Al Hydrox/Mg Hydrox/Simethicone (Maalox Plus 30 Ml) 30 ml PO DAILY PRN PRN Reason: Upset Stomach Last Admin: 12/06/18 21:51 Dose: 30 ml Amiodarone HCl (Cordarone) 200 mg PO DAILY [facility] Last Admin: 12/07/18 09:41 Dose: 200 mg Amlodipine Besylate (Norvasc) 10 mg PO DAILY [facility] Last Admin: 12/07/18 08:23 Dose: 10 mg Aspirin (Ecotrin) 81 mg PO DAILY [facility] Last Admin: 12/07/18 08:20 Dose: 81 mg Clonazepam (Klonopin) 0.5 mg PO AMHS [facility]; Protocol Last Admin: 12/07/18 21:04 Dose: 0.5 mg Magnesium Hydroxide (Milk Of Magnesia) 30 ml PO DAILY PRN PRN Reason: Constipation Metoprolol Tartrate (Lopressor) 12.5 mg PO BID [facility] Last Admin: 12/07/18 15:51 Dose: 12.5 mg Oxycodone/Acetaminophen (Percocet 10/325 Mg Tab) 1 tab PO Q6H PRN PRN Reason: Pain, severe (8-10) Last Admin: 12/07/18 22:00 Dose: 1 tab Results - Vital Signs Recent Vital Signs: Last Vital Signs Temp 98.1 F 12/07/18 07:24 Pulse 87 12/07/18 16:00 Resp 20 12/07/18 07:24 BP 174/78 H 12/07/18 16:00 Pulse Ox 95 12/06/18 20:19 - Labs Result Diagrams: 12/06/18 13:00 12/06/18 13:00 Labs: Laboratory Results - last 24 hr 12/07/18 12/07/18 12/07/18 07:20 07:20 07:20 PT INR Fasting Glucose 104 Iron TIBC % Saturation Ferritin Total Bilirubin 1.2 Direct Bilirubin 0.3 AST 68 H D ALT 101 H Alkaline Phosphatase 76 Total Protein 6.7 Albumin 3.8 Globulin 2.9 Albumin/Globulin Ratio 1.3 Triglycerides 74 Cholesterol 132 LDL Cholesterol Direct 68 HDL Cholesterol 61 H TSH 3rd Generation 1.67 RPR Nonreactive Hepatitis A IgM Ab Hep Bs Antigen Hep Bs Antibody Hep B Core IgM Ab Hepatitis C Antibody 12/07/18 12/07/18 12/07/18 12:41 12:41 12:41 PT INR Fasting Glucose Iron 163 TIBC 306 % Saturation 53 Ferritin Total Bilirubin Direct Bilirubin AST ALT Alkaline Phosphatase Total Protein Albumin Globulin Albumin/Globulin Ratio Triglycerides Cholesterol LDL Cholesterol Direct HDL Cholesterol TSH 3rd Generation RPR Hepatitis A IgM Ab Negative Hep Bs Antigen Negative Hep Bs Antibody Negative Hep B Core IgM Ab Negative Hepatitis C Antibody Negative 12/07/18 12/07/18 12:41 12:43 PT 12.0 INR 1.06 Fasting Glucose Iron TIBC % Saturation Ferritin 276.0 Total Bilirubin Direct Bilirubin AST ALT Alkaline Phosphatase Total Protein Albumin Globulin Albumin/Globulin Ratio Triglycerides Cholesterol LDL Cholesterol Direct HDL Cholesterol TSH 3rd Generation RPR Hepatitis A IgM Ab Hep Bs Antigen Hep Bs Antibody Hep B Core IgM Ab Hepatitis C Antibody Attending/Attestation - Attestation I have personally seen and examined this patient.: Yes I have fully participated in the care of the patient.: Yes I have reviewed all pertinent clinical information: Yes Notes (Text): This is an addendum to the GI consultation report dictated by the resident. This patient was seen in evaluated along with the resident here earlier today. LFT shows downward trend. We will follow-up LFTs GI workup done before was reviewed. History of active EtOH use. Follow-up of LFT 12/07/18 23:25
[2018-12-07 13:54] LABS: IRON 163 ug/dL (45-180)
[2018-12-07 14:01] LABS: TOTAL IRON BINDING CAPACITY 306 ug/dL (261-462)
[2018-12-07 14:02] LABS: % IRON SATURATION 53 % (20-55)
[2018-12-07 14:11] LABS: INR 1.06
[2018-12-07 16:38] LABS: HEPATITIS B SURFACE AG Negative (NEGATIVE)
[2018-12-07 16:43] LABS: HEPATITIS A IGM NEGATIVE (NEGATIVE); HEPATITIS B CORE AB NEGATIVE (NEGATIVE)
[2018-12-07 16:55] LABS: HEPATITIS C ANTIBODY NEGATIVE (NEGATIVE)
--- NOTE | 2018-12-07 21:53 | CON ---
DATE OF CONSULTATION: 12/07/2018 HISTORY OF PRESENT ILLNESS: The patient is a 63-year-old male, who came to [facility] with complaints of pain in his lower extremities. The patient has a past medical history of atrial fibrillation, stroke, peripheral vascular disease with stents, spinal stenosis, laminectomies, fatty liver, alcohol abuse, peripheral neuropathy, chronic pain syndrome, gastroenteritis, vascular insufficiency, thrombocytopenia. SOCIAL HISTORY: He states that he drinks about 6 cans of beer a day. States that recently it has been difficult since he has been living with his daughter at home that it has been very stressful. ALLERGIES: HE SAYS THAT HE HAS AN ALLERGY HISTORY TO THE ENVIRONMENT. MEDICATIONS: He admits at this point he is taking amiodarone 2 mg daily, Ecotrin 81 mg daily, Lopressor 12.5 mg b.i.d., Norvasc 10 mg daily, and Percocet 10/325 every six hours p.r.n. pain. REVIEW OF SYSTEMS: Ten systems are reviewed. Pertinent findings as stated. PHYSICAL EXAMINATION: VITAL SIGNS: Show a temperature of 98.1. His pulse is 75. His blood pressure is 133/67, respiratory rate is 20. GENERAL: He is alert and oriented x3. He states that he is feeling down and depressed about his general medical status and his social situation. NECK: Supple. LUNGS: Clear. HEART: S1, S2. ABDOMEN: Obese, soft, with positive bowel sounds. EXTREMITIES: Show no evidence of rash. LABORATORY DATA: His chest x-ray is reported as showing no active disease. His electrocardiogram is reported showing a normal sinus rhythm with sinus arrhythmia. His laboratory data shows a WBC of 5.2, RBC of 4.88, hemoglobin 17.3, hematocrit 48.9, platelet count 125. His PT is not done. His chemistry shows a sodium of 137, potassium 4.5, chloride 104, CO2 of 25. The BUN is 11, the creatinine is 0.6. Total bilirubin is 1.1. His AST is 117, his ALT is 142, alkaline phosphatase is 94. His cholesterol level is 155, HDL is 79. His TSH is 1.67. Urinalysis showed many bacteria, positive for nitrites. Toxicology screen was negative. His serology for hepatitis A IgM antibody is negative, hepatitis B surface antigen is negative, hepatitis B core immunoglobulin and antibody is negative and hepatitis C antibody is negative. IMPRESSION: A 63-year-old male with; 1. Feeling of despair, depression. 2. History of alcohol consumption. 3. History of chronic pain syndrome. 4. History of arteriosclerotic heart disease. 5. History of atrial fibrillation. 6. History of stroke. 7. History of peripheral vascular disease. 8. History of peripheral neuropathy. 9. History of fatty liver. 11. History of elevated liver function tests. PLAN: 1. We will request a Psych eval for the patient as well as a pain management eval and discussed the clinical findings with Dr. West as well as with the patient and the nursing staff. We will also get a GI evaluation because of the elevation in the liver function tests. Laura Moeller MD
--- NOTE | 2018-12-07 22:35 | PCM.PSYCH ---
Initial Psychiatric Evaluation - Initial Psychiatric Evaluation Legal Status: Capacity Chief Complaint (in patient's own words): Depression and the pain. Patient's Reaction to Hospitalization: Patient seeking relief from both his mood disturbance and pain symptoms and is looking forward to getting such relief in a hospital environment. Please see social work note for further details History of Present Illness and Precipitating Events: Patient had moved back to [place] this past December after getting a divorce. This was his second marriage. 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 This has gotten worse over the years. He has had a number of psychosocial stressors including the breakup of 2 marriages HEENT he has also had a history of alcohol abuse which she did not talk about in the context of present interview with him in the course of his treatment team isreal jerez The patient failed the outpatient lower level of care: Yes Current Medications: Active Medications Generic Name Dose Route Start Last Admin Trade Name Freq PRN Reason Stop Dose Admin Acetaminophen 650 mg 12/06/18 21:20 Tylenol 325mg Tab PO Q4H PRN Pain, Mild (1-3) Al Hydrox/Mg Hydrox/Simethicone 30 ml 12/06/18 21:20 12/06/18 21:51 Maalox Plus 30 Ml PO 30 ml DAILY PRN Administration Upset Stomach Amiodarone HCl 200 mg 12/07/18 08:00 12/07/18 09:41 Cordarone PO 200 mg DAILY JOANNA Administration Amlodipine Besylate 10 mg 12/07/18 08:00 12/07/18 08:23 Norvasc PO 10 mg DAILY JOANNA Administration Aspirin 81 mg 12/07/18 08:00 12/07/18 08:20 Ecotrin PO 81 mg DAILY JOANNA Administration Clonazepam 0.5 mg 12/06/18 22:00 12/07/18 21:04 Klonopin PO 0.5 mg AMHS JOANNA Administration Protocol Magnesium Hydroxide 30 ml 12/06/18 21:20 Milk Of Magnesia PO DAILY PRN Constipation Metoprolol Tartrate 12.5 mg 12/07/18 08:00 12/07/18 15:51 Lopressor PO 12.5 mg BID JOANNA Administration Oxycodone/Acetaminophen 1 tab 12/06/18 21:19 12/07/18 22:00 Percocet 10/325 Mg Tab PO 1 tab Q6H PRN Administration Pain, severe (8-10) Present on Admission - Present on Admission Any Indicators Present on Admission: Yes History of DVT/PE: No History of Uncontrolled Diabetes: No Urinary Catheter: No Decubitus Ulcer Present: No Past Patient History - Past Psychiatric History Prior Professional Help: Hospitalized in 2013 for depression Prior Psychiatric Treatment: As noted above At [facility] hospital: [facility] Duration: 1 week Nature of Treatment: Individual and group milieu therapy Explanation of prior treatment: Never followed up with treatment after leaving the hospital. 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 Alcohol: > 2 Drinks/Day (Current use uncertain this patient denies use but record indicates a history of alcohol use) Drugs: Denies Home Situation {Lives}: Alone Domestic Violence: Negative - CARDIAC Hx Cardiac Disorders: Yes Hx Hypertension: No - PULMONARY Hx Respiratory Disorders: No Hx Tuberculosis: No - NEUROLOGICAL HX Cerebrovascular Accident: No Hx Seizures: No - HEENT Hx HEENT Problems: No Other/Comment: sinus issues due to enviromental allergies - RENAL Hx Chronic Kidney Disease: No - ENDOCRINE/METABOLIC Hx Hypothyroidism: No - HEMATOLOGICAL/ONCOLOGICAL Hx Cancer: No Hx Human Immunodeficiency Virus (HIV): No - INTEGUMENTARY Hx Dermatological Problems: No - MUSCULOSKELETAL/RHEUMATOLOGICAL Hx Arthritis: Yes (x 3yrs) Hx Back Pain: Yes (x 3 yrs) Hx Falls: No Hx Unsteady Gait: Yes (due to knee paon) Other/Comment: spinal stenosis - GASTROINTESTINAL Hx Gastrointestinal Disorders: No - GENITOURINARY/GYNECOLOGICAL Hx Sexually Transmitted Disorders: No - SURGICAL HISTORY Hx Surgeries: Yes Hx Cardiac Catheterization: No Hx Coronary Stent: No Other/Comment: spinal surgery - ANESTHESIA Hx Anesthesia: Yes Hx Anesthesia Reactions: No Hx Malignant Hyperthermia: No Meds Allergies/Adverse Reactions: Allergies Allergy/AdvReac Type Severity Reaction Status Date / Time enviromental Allergy Mild COUGH Uncoded 10/05/18 13:27 Mental Status Examination - Affect Affect: Blunted - Motor Activity Motor Activity: Calm - Reliability in Providing Information Reliability in Providing Information: Other - Speech Speech: Other - Mood Mood: Depressed - Formal Thought Process Formal Thought Process: Other (Over her expansive at times) - Obsessions/Compulsions Obsessions: None Compulsions: None - Cognitive Functions Orientation: Person, Place, Situation, Time Sensorium: Alert (Slowed and thinking or expression at times) Attention/Concentration: Attentive Estimate of Intelligence: Below average Judgement: Imparied, as evidence by: Other (Patient may be evasive) Memory: Recent intact, as evidence by: Other, Remote intact, as evidenced by: Abilit to recall sig. life events - Risk Risk: Other - Strength & Assets Inventory Strength & Assets Inventory: Other (Has a place to live. Has Medicaid. May have Social Security disability.) - Limitations Limitations: Living alone, Other (Level of cognitive impairment subsequent to stroke uncertain at this juncture) Psychiatric Physical Exam - Physical Exam Reviewed and confirmed: Emergency Department Physical Exam Results - Vital Signs Recent Vital Signs: Last Vital Signs Temp 98.1 F 12/07/18 07:24 Pulse 87 12/07/18 16:00 Resp 20 12/07/18 07:24 BP 174/78 H 12/07/18 16:00 Pulse Ox 95 12/06/18 20:19 - Labs Result Diagrams: 12/06/18 13:00 12/06/18 13:00 Labs: Laboratory Results - last 24 hr 12/07/18 12/07/18 12/07/18 07:20 07:20 07:20 PT INR Fasting Glucose 104 Iron TIBC % Saturation Ferritin Total Bilirubin 1.2 Direct Bilirubin 0.3 AST 68 H D ALT 101 H Alkaline Phosphatase 76 Total Protein 6.7 Albumin 3.8 Globulin 2.9 Albumin/Globulin Ratio 1.3 Triglycerides 74 Cholesterol 132 LDL Cholesterol Direct 68 HDL Cholesterol 61 H TSH 3rd Generation 1.67 RPR Nonreactive Hepatitis A IgM Ab Hep Bs Antigen Hep Bs Antibody Hep B Core IgM Ab Hepatitis C Antibody 12/07/18 12/07/18 12/07/18 12:41 12:41 12:41 PT INR Fasting Glucose Iron 163 TIBC 306 % Saturation 53 Ferritin Total Bilirubin Direct Bilirubin AST ALT Alkaline Phosphatase Total Protein Albumin Globulin Albumin/Globulin Ratio Triglycerides Cholesterol LDL Cholesterol Direct HDL Cholesterol TSH 3rd Generation RPR Hepatitis A IgM Ab Negative Hep Bs Antigen Negative Hep Bs Antibody Negative Hep B Core IgM Ab Negative Hepatitis C Antibody Negative 12/07/18 12/07/18 12:41 12:43 PT 12.0 INR 1.06 Fasting Glucose Iron TIBC % Saturation Ferritin 276.0 Total Bilirubin Direct Bilirubin AST ALT Alkaline Phosphatase Total Protein Albumin Globulin Albumin/Globulin Ratio Triglycerides Cholesterol LDL Cholesterol Direct HDL Cholesterol TSH 3rd Generation RPR Hepatitis A IgM Ab Hep Bs Antigen Hep Bs Antibody Hep B Core IgM Ab Hepatitis C Antibody - EKG Data EKG Interpreted by: ER Physician DSM Plan - DSM 5 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 Projected ELOS: 1 week Prognosis: Fair Discharge Plan and Discharge Criteria: Patient will show improved mood and affect. Will not be suicidal at time of discharge. We will agreed to compliance upon discharge (he has been noncompliant in the past) further exploration of alcohol use will be engaged in during his hospital stay. - Tobacco Cessation Tobacco Use Status for the last 30 days: Heavy User(>=5 cigs &/or cigars/pipes daily) Tobacco Use Treatment Practical Counseling Provided: Yes Tobacco Use Treatment FDA-Approved Cessation Medication Provided: Yes Type of Medication Provided: Nicoderm CQ - Alcohol or Substance Abuse Does the patient have an Alcohol or Substance Abuse Disorder: Yes Initial Psych Certification - Initial Certification Unit of Time: Days (7) My plans for post-hospital care for this patient are: [email or web address]
[2018-12-08] MEDS: Oxycodone/Acetaminophen 10/325 mg Tab PO PRN ×4 (03:25→20:33)
[2018-12-08 08:43] LABS: CERULOPLASMIN 25 mg/dL (18-36)
--- NOTE | 2018-12-08 11:35 | CP.PCM.PN ---
<Emilee Gaona - Last Filed: 12/08/18 11:29> Subjective - Date & Time of Evaluation Date of Evaluation: 12/08/18 Time of Evaluation: 11:29 - Subjective Subjective: Emilee Gaona, PGY-1, GI Progress Note for Dr. Paris Patient seen and evaluated at bedside. Patient had no acute overnight events. Patient reports right flank pain but denies any other symptoms including fever, chest pain, shortness of breath, nausea, vomiting, constipation, diarrhea, abdominal pain. Objective - Vital Signs/Intake and Output Vital Signs (last 24 hours): Temp Pulse Resp BP Pulse Ox 97.2 F L 73 20 149/83 95 12/08/18 07:09 12/08/18 09:35 12/08/18 07:09 12/08/18 09:35 12/06/18 20:19 - Medications Medications: Current Medications Acetaminophen (Tylenol 325mg Tab) 650 mg PO Q4H PRN PRN Reason: Pain, Mild (1-3) Al Hydrox/Mg Hydrox/Simethicone (Maalox Plus 30 Ml) 30 ml PO DAILY PRN PRN Reason: Upset Stomach Last Admin: 12/06/18 21:51 Dose: 30 ml Amiodarone HCl (Cordarone) 200 mg PO DAILY [facility] Last Admin: 12/08/18 09:35 Dose: 200 mg Amlodipine Besylate (Norvasc) 10 mg PO DAILY [facility] Last Admin: 12/08/18 09:33 Dose: 10 mg Aspirin (Ecotrin) 81 mg PO DAILY [facility] Last Admin: 12/08/18 09:36 Dose: 81 mg Clonazepam (Klonopin) 0.5 mg PO AMHS [facility]; Protocol Last Admin: 12/08/18 09:35 Dose: 0.5 mg Magnesium Hydroxide (Milk Of Magnesia) 30 ml PO DAILY PRN PRN Reason: Constipation Metoprolol Tartrate (Lopressor) 12.5 mg PO BID [facility] Last Admin: 12/08/18 09:32 Dose: 12.5 mg Oxycodone/Acetaminophen (Percocet 10/325 Mg Tab) 1 tab PO Q6H PRN PRN Reason: Pain, severe (8-10) Last Admin: 12/08/18 09:33 Dose: 1 tab - Labs Labs: 12/06/18 13:00 12/06/18 13:00 PT 12.0 SECONDS (9.4-12.5) 12/07/18 12:43 INR 1.06 12/07/18 12:43 - Constitutional Appears: Well, Non-toxic, No Acute Distress - Head Exam Head Exam: ATRAUMATIC, NORMAL INSPECTION, NORMOCEPHALIC - Eye Exam Eye Exam: EOMI, PERRL - ENT Exam ENT Exam: Mucous Membranes Moist - Respiratory Exam Respiratory Exam: Clear to Auscultation Bilateral, NORMAL BREATHING PATTERN - Cardiovascular Exam Cardiovascular Exam: REGULAR RHYTHM, RRR, +S1, +S2 - GI/Abdominal Exam GI & Abdominal Exam: Normal Bowel Sounds, Soft. absent: Distended, Firm, Hernia, Mass, Tenderness - Extremities Exam Extremities exam: Positive for: full ROM, normal inspection. Negative for: pedal edema - Neurological Exam Neurological exam: Alert, CN II-XII Intact, Oriented x3 - Psychiatric Exam Psychiatric exam: Depressed - Skin Skin Exam: Dry, Intact Assessment and Plan - Assessment and Plan (Free Text) Assessment: 63 year old male with past medical history of CVA, peripheral neuropathy, hypertension, asthma, chronic lower back pain, alcohol dependence, atrial fibrillation presents with bilateral lower extremity pain for 6 years. GI was consulted for elevated LFTs #Elevated LFTs #Alcohol dependence #History of paroxysmal atrial fibrillation #Hypertension #CVA Plan: -Will continue to trend LFTs and follow up anti-smooth muscle Ab, anti- mitochondrial Ab, anti microsomal Ab, HFE gene for further workup and diagnosis. -Hepatitis panel unremarkable -Iron: 163 -Ferritin: elevated at 276 -TIBC is 306 -Ceruloplasmin unremarkable -LFTs improved again today -INR unremarkable at 1.06 -Patient has significant alcohol history, and elevated LFTs could be related to that. Serum alcohol was negative on admission was last drink was 2 days prior to admission. UDS was negative. -Patient is currently taking home amiodarone, which could potentially be causing worsening of liver. -Patient is tolerating regular diet well. Patient plan discussed with Dr. Paris. <Bobby Paris V - Last Filed: 12/08/18 23:56> Objective - Vital Signs/Intake and Output Vital Signs (last 24 hours): Temp Pulse Resp BP Pulse Ox 97.2 F L 74 20 126/75 95 12/08/18 07:09 12/08/18 16:43 12/08/18 07:09 12/08/18 16:43 12/06/18 20:19 - Medications Medications: Current Medications Acetaminophen (Tylenol 325mg Tab) 650 mg PO Q4H PRN PRN Reason: Pain, Mild (1-3) Al Hydrox/Mg Hydrox/Simethicone (Maalox Plus 30 Ml) 30 ml PO DAILY PRN PRN Reason: Upset Stomach Last Admin: 12/06/18 21:51 Dose: 30 ml Amiodarone HCl (Cordarone) 200 mg PO DAILY [facility] Last Admin: 12/08/18 09:35 Dose: 200 mg Amlodipine Besylate (Norvasc) 10 mg PO DAILY [facility] Last Admin: 12/08/18 09:33 Dose: 10 mg Aspirin (Ecotrin) 81 mg PO DAILY [facility] Last Admin: 12/08/18 09:36 Dose: 81 mg Clonazepam (Klonopin) 0.5 mg PO HS [facility]; Protocol Last Admin: 12/08/18 21:17 Dose: 0.5 mg Clonazepam (Klonopin) 0.5 mg PO BID [facility]; Protocol Last Admin: 12/08/18 16:45 Dose: 0.5 mg Fluoxetine HCl (Prozac) 20 mg PO DAILY [facility] Last Admin: 12/08/18 14:32 Dose: 20 mg Magnesium Hydroxide (Milk Of Magnesia) 30 ml PO DAILY PRN PRN Reason: Constipation Metoprolol Tartrate (Lopressor) 12.5 mg PO BID [facility] Last Admin: 12/08/18 16:43 Dose: 12.5 mg Oxycodone/Acetaminophen (Percocet 10/325 Mg Tab) 1 tab PO Q6H PRN PRN Reason: Pain, severe (8-10) Last Admin: 12/08/18 20:33 Dose: 1 tab - Labs Labs: 12/06/18 13:00 12/06/18 13:00 PT 12.0 SECONDS (9.4-12.5) 12/07/18 12:43 INR 1.06 12/07/18 12:43 Attending/Attestation - Attestation I have personally seen and examined this patient.: Yes I have fully participated in the care of the patient.: Yes I have reviewed all pertinent clinical information, including history, physical exam and plan: Yes Notes (Text): p 04/12/19 23:56
--- NOTE | 2018-12-08 15:19 | PCM.PYCHPN ---
Psychiatric Progress Note - Psychiatric Progress Note Patient seen today, length of contact: 25 min Patient Chief Complaint: "I am feeling very depressed, hopeless" Problems Identified/Issues Discussed: Current symptoms, medications, treatment plan, discharge plan, medical issues. Medical Problems: Please see Dr. Moeller notes for more detailed information. Diagnostic Results: 12/06/18 13:00 12/06/18 13:00 Lab Results 12/07/18 12:43: PT 12.0, INR 1.06 12/07/18 12:41: Ceruloplasmin 25, Anti-Mitochondrial Ab Negative, Smooth Muscle Ab Titer TEST NOT PERFORMED, Anti-Smooth Muscle Ab Negative, Hepatitis A IgM Ab Pending, Hepatitis A Ab Total Pending 12/07/18 12:41: Ferritin 276.0 12/07/18 12:41: Hep Bs Antibody Negative 12/07/18 12:41: Hepatitis A IgM Ab Negative, Hep Bs Antigen Negative, Hep B Core IgM Ab Negative, Hepatitis C Antibody Negative 12/07/18 12:41: Iron 163, TIBC 306, % Saturation 53 12/07/18 07:20: RPR Nonreactive 12/07/18 07:20: TSH 3rd Generation 1.67 12/07/18 07:20: Fasting Glucose 104, Total Bilirubin 1.2, Direct Bilirubin 0.3, AST 68 H D, ALT 101 H, Alkaline Phosphatase 76, Total Protein 6.7, Albumin 3.8, Globulin 2.9, Albumin/Globulin Ratio 1.3, Triglycerides 74, Cholesterol 132, LDL Cholesterol Direct 68, HDL Cholesterol 61 H 12/06/18 15:20: Urine Opiates Screen Negative, Urine Methadone Screen Negative, Ur Barbiturates Screen Negative, Ur Phencyclidine Scrn Negative, Ur Amphetamines Screen Negative, U Benzodiazepines Scrn Negative, U Oth Cocaine Metabols Negative, U Cannabinoids Screen Negative 12/06/18 14:10: Urine Color Light brown, Urine Appearance Slight-cloudy, Urine pH 5.5, Ur Specific [place] >= 1.030, Urine Protein 30 H, Urine Glucose (UA) Negative, Urine Ketones 15 H, Urine Blood Negative, Urine Nitrate Positive H, Urine Bilirubin Small H, Urine Urobilinogen 1.0 H, Ur Leukocyte Esterase Negative, Urine RBC 0 - 2, Urine WBC 0 - 2, Ur Epithelial Cells 0 - 2, Amorphous Sediment Few, Urine Bacteria Many, Urine Other Fiber 04/10/19 13:00: Alcohol, Quantitative < 10 12/06/18 13:00: Sodium 137, Potassium 4.5, Chloride 104, Carbon Dioxide 25, Anion Gap 13, BUN 11, Creatinine 0.6 L, Est GFR ( Amer) > 60, Est GFR (Non-Af Amer) > 60, Random Glucose 87, Calcium 9.2, Total Bilirubin 1.1, AST 117 H D, ALT 142 H, Alkaline Phosphatase 94, Total Protein 7.6, Albumin 4.3, Globulin 3.2, Albumin/Globulin Ratio 1.3, Triglycerides 64, Cholesterol 155, LDL Cholesterol Direct 78, HDL Cholesterol 79 H 12/06/18 13:00: WBC 5.2, RBC 4.88, Hgb 17.3 D, Hct 48.9, MCV 100.2, MCH 35.5 H, MCHC 35.4, RDW 13.4, Plt Count 125, MPV 11.0, Neut % (Auto) 70.3 H, Lymph % (Auto) 20.0 L, [place] % (Auto) 9.1 H, Eos % (Auto) 0.4 L, Baso % (Auto) 0.2, Lymph # (Auto) 1.0 L, [place] # (Auto) 0.5, Eos # (Auto) 0.0, Baso # (Auto) 0.01, Absolute Neuts (auto) 3.63 Vital Signs Temp Pulse Resp BP Pulse Ox 12/08/18 09:35 73 149/83 12/08/18 09:33 149/73 12/08/18 09:32 73 149/83 12/08/18 07:09 97.2 F L 73 20 149/83 12/07/18 16:00 87 174/78 H 12/07/18 15:51 87 174/87 H 12/07/18 08:23 133/67 12/07/18 08:20 75 133/67 12/07/18 07:24 98.1 F 75 20 133/67 12/06/18 23:11 88 20 162/98 H 12/06/18 21:48 177/107 H 12/06/18 20:19 80 18 156/62 H 95 12/06/18 16:35 98.0 F 73 19 146/91 H 95 12/06/18 14:59 98.0 F 83 18 155/97 H 96 12/06/18 12:50 98.1 F 72 18 140/96 H 95 12/06/18 09:45 98.1 F 66 18 144/69 94 L DSM 5 Symptoms Update: Covering for Dr. Fitzgerald: Shortly patient is a 63-year old male, not known previous psychiatric history, patient denies history of suicidal attempts, last know psych. admission was on 12/03/2013, patient was admitted to the psychiatric inpatient unit for evaluation and stabilization of depressive symptoms, hopelessness, possible suicidal ideation, with no intent or plan to kill himself. Patient was seen today at the treatment team meeting room, patient presented with acceptable personal hygiene, patient ambulates using wheelchair because of chronic pain in his lower extremities, overall patient presented to be calm, cooperative, socially appropriate. Patient reported prior to come to the hospital she was feeling depressed for about 2 weeks, feeling hopeless, helpless, worthless, guilty, patient reported to have passive wish to be and keep asking himself what is the purpose of his life. Patient denies any psychotic symptoms, denied paranoid ideations, patient denied hearing voices, denied seeing things, does not appeared to be psychotic. Patient reported that she feels anxious, worried, shaky. Reviewed medication list, there is no antidepressant initiated, patient interested to be on antidepressant, risks/benefits 36 of antidepressants discussed, patient is willing to be on Prozac 20 mg daily. This lead technical writer also offered physical therapy evaluation to assess patient gait. Patient was fixated on chronic back pain as well as leg pain status post epidural procedure about 6 years ago. Impression: Rule out major depressive disorder Rule out generalized anxiety disorder Patient has history of alcohol abuse, denies any recent use of alcohol Medication Change: Yes (Prozac started Klonopin increased) Medical Record Reviewed: Yes Consults ordered or reviewed: Medical consult appreciated. Physical therapy will be called. Mental Status Examination - Cognitive Function Orientation: Person, Place, Situation, Time Memory: Intact Attention: Poor Concentration: Poor Association: WNL Fund of Knowledge: WNL - Mood Mood: Depressed - Affect Affect: Blunted - Formal Thought Process Formal Thought Process: Other (Overinclusive at times) - Suicidal Ideation Suicidal Ideation: No - Homicidal Ideation Homicidal Ideation: No Goal/Treatment Plan - Goal/Treatment Plan Need for Continued Stay: Remain at risks for inpatient hospitalization, Severe depression anxiety, Discharge may exacerbated symptoms, Severe functional impairment Progress Toward Problem(s) and Goals/Treatment Plan: Milieu/structure/supportive therapy SW consultation for discharge plan and social issues, pt was referred to a [facility] Med management Prozac 20 mg daily for depression Klonopin was increased to 3 times a day 0.5 mg physical therapy called Pain management was called by primary team Family involvement Follow up on labs Will monitor closely Pt was educated about risk/benefits and alternatives of medications, coping strategies (safety plan, suicide prevention), relapse prevention, importance of follow up with psychiatrist and therapist, stay away from drugs/alcohol/smoking Estimated Date of D/C: 12/15/18
--- NOTE | 2018-12-08 19:26 | PN ---
DATE: 12/08/2018 SUBJECTIVE: A 63-year-old male on the psychiatry unit being followed by Psychiatry for depression. The patient this morning says that he is feeling a bit better. PHYSICAL EXAMINATION: VITAL SIGNS: Temperature is 97.2. His pulse is 73, blood pressure is 149/83. LUNGS: Clear. HEART: Is in S1, S2 rhythm. ABDOMEN: Obese, soft with positive bowel sounds. EXTREMITIES: Show no evidence of edema. He is currently sitting in a wheelchair, although he has been up to mobilize. MEDICATIONS: At the current time he is on amiodarone, Ecotrin, Klonopin, Lopressor, Maalox, milk of magnesia, Norvasc, Percocet. ASSESSMENT: 1. The patient has peripheral vascular disease status post multiple stents with peripheral neuropathy. 2. He has lumbar disc disease and had been considering critical stimulator placement through the [facility] in [place], but according to the patient, did not get there for followup. 3. He has a history of paroxysmal atrial fibrillation in the past. 4 History of alcohol consumption. He is being seen by GI at this time for elevation in his liver function tests. There is a history of fatty liver disease. Hepatitis panel is pending and antimitochondrial antibodies and anti-smooth muscle antibodies are pending. He will continue to be followed by psychiatry at this time and be followed by GI and Medicine. Laura Moeller MD
[2018-12-09] MEDS: Oxycodone/Acetaminophen 10/325 mg Tab PO PRN ×4 (02:37→21:19)
[2018-12-09 08:20] LABS: BASO # 0.01 K/mm3 (0.0-2.0); BASO % 0.2 % (0.0-3.0); EOS # 0.1 (0.0-0.7); EOS % 1.4 % (1.5-5.0); LYMPH # 1.6 (1.2-3.4); LYMPH % 32.5 % (22.0-35.0); MEAN CELL VOLUME 102.3 fl (80.0-105.0); MEAN CORPUSCULAR HEMOGLOBIN 34.5 pg (25.0-35.0); MEAN CORPUSCULAR HGB CONC 33.7 g/dl (31.0-37.0); MEAN PLATELET VOLUME 11.4 fl (7.0-11.0); MONO # 0.5 (0.1-0.6); MONO % 9.6 % (1.0-6.0); RBC 4.35 10^6/uL (3.5-6.1); RED CELL DISTRIBUTION WIDTH 13.1 % (11.5-14.5); WHITE BLOOD COUNT 4.9 10^3/uL (4.5-11.0)
[2018-12-09 08:53] LABS: ALB/GLOB RATIO 1.3 (1.1-1.8); ALBUMIN 3.8 g/dL (3.0-4.8); ALT/SGPT 96 U/L (7-56); AST/SGOT 80 U/L (17-59); BLOOD UREA NITROGEN 20 mg/dL (7-21); CALCIUM 8.6 mg/dL (8.4-10.5); GFR NON-AFRICAN AMERICAN > 60
--- NOTE | 2018-12-09 09:02 | PCM.PYCHPN ---
Psychiatric Progress Note - Psychiatric Progress Note Patient seen today, length of contact: 25 min Problems Identified/Issues Discussed: I reviewed assessment and recent notes. Patient was interviewed at bedside. He is calm and well-oriented. Reports that his progress is "up and down". Affect is constricted however some reactivity is present. Patient responds coherently and relevantly to my questioning. He denies any new side effects, concerns or discomfort. Still complains of chronic back and leg pain. States "I am trying to control it". He has been visible and appropriate on the unit. Socializes at times but doesn't really appear animated or happy. Nonetheless he feels like he is getting better. I/J are fair. Diagnostic Results: Depression not otherwise specified Alcohol abusepossibly in remission Rule out dementia of the alcohol type Medication Change: Yes (Added sonata prn) Medical Record Reviewed: Yes Mental Status Examination - Cognitive Function Orientation: Person, Place, Situation, Time Memory: Intact Attention: Poor Concentration: Poor Association: WNL Fund of Knowledge: WNL - Mood Mood: Depressed - Affect Affect: Blunted - Formal Thought Process Formal Thought Process: Other (Overinclusive at times) - Suicidal Ideation Suicidal Ideation: No - Homicidal Ideation Homicidal Ideation: No Goal/Treatment Plan - Goal/Treatment Plan Need for Continued Stay: Remain at risks for inpatient hospitalization, Severe depression anxiety, Discharge may exacerbated symptoms, Severe functional impairment Progress Toward Problem(s) and Goals/Treatment Plan: * c/w current tx and plan * On 12/09/18 sonata 5 mg po HS prn was initiated for restless sleep * No new weekend lab results thus far * Vitals reviewed and noted below: Selected Entries 12/08/18 12/08/18 07:09 16:43 Temperature 97.2 F L Pulse Rate 73 74 Respiratory 20 Rate Blood Pressure 149/83 126/75 Estimated Date of D/C: 12/15/18
--- NOTE | 2018-12-09 14:56 | PN ---
DATE: 12/09/2018 SUBJECTIVE: This is a 63-year-old male on the psych unit. Nursing staff relates the patient had a good day; however, the patient states that during the night he was a little bit restless. PHYSICAL EXAMINATION: VITAL SIGNS: His temperature is 97.9, his pulse is 68, his blood pressure is 143/85, and respiratory rate is 20. GENERAL: He is alert and oriented x3. LUNGS: Clear. HEART: S1 and S2 rhythm. ABDOMEN: Soft, positive bowel sounds. EXTREMITIES: Show no evidence of edema. LABORATORY DATA: Shows sodium 137, potassium 4.3, chloride 102, CO2 of 29, BUN is 20, and creatinine is 0.7. His AST is 80 and his ALT is 96. CBC shows a WBC of 4.9, RBC 4.35, hemoglobin 15, hematocrit 44.5, and platelet count is 103. MEDICATIONS: At the present time he is on amiodarone, Ecotrin, Klonopin, Lopressor, Maalox p.r.n., milk of magnesia p.r.n., Norvasc, Percocet for severe pain, Prozac, p.r.n., and Tylenol p.r.n. ASSESSMENT AND PLAN: The patient is being followed by Psychiatry for his underlying anxiety and depression. He has a past medical history of peripheral vascular disease with peripheral neuropathy, laminectomy surgeries, paroxysmal atrial fibrillation, stroke, and alcohol use. Gastroenterology is following the patient. He has also a history of fatty liver disease. He continues to be monitored by Psychiatry at this time and a pain management request has been placed. We will follow up his CBC. Laura Moeller MD
[2018-12-10] MEDS: Oxycodone/Acetaminophen 10/325 mg Tab PO PRN ×4 (04:14→21:11)
[2018-12-10 08:09] LABS: BASO # 0.02 K/mm3 (0.0-2.0); BASO % 0.5 % (0.0-3.0); EOS # 0.1 (0.0-0.7); EOS % 1.6 % (1.5-5.0); HEMOGLOBIN 14.2 g/dL (14.0-18.0); LYMPH # 1.3 (1.2-3.4); LYMPH % 30.4 % (22.0-35.0); MEAN CELL VOLUME 103.1 fl (80.0-105.0); MEAN CORPUSCULAR HEMOGLOBIN 34.3 pg (25.0-35.0); MEAN CORPUSCULAR HGB CONC 33.3 g/dl (31.0-37.0); MEAN PLATELET VOLUME 11.5 fl (7.0-11.0); MONO # 0.6 (0.1-0.6); MONO % 13.1 % (1.0-6.0); RBC 4.14 10^6/uL (3.5-6.1); WHITE BLOOD COUNT 4.3 10^3/uL (4.5-11.0)
--- NOTE | 2018-12-10 09:04 | PCM.PYCHPN ---
Psychiatric Progress Note - Psychiatric Progress Note Patient seen today, length of contact: 25 min Problems Identified/Issues Discussed: I reviewed recent notes and met with patient at bedside again. He is calm and well-oriented. Grooming is a little unkempt. He reports that his progress is "up and down" and that he is "hanging in there". Affect is constricted however some reactivity is present. Patient responds coherently and relevantly to my questioning. He denies any new side effects, concerns or discomfort. Still complains of chronic back and leg pain as well as anxiety. States "I am trying to control it". He has been visible and appropriate on the unit. Socializes at times but doesn't really appear animated or happy. Staff note that his participation is poor in groups and that he has issues with memory since he cannot recall his medications or provider names. Nonetheless patient feels like he is getting better. I/J are fair. Diagnostic Results: Depression not otherwise specified Alcohol abusepossibly in remission Rule out dementia of the alcohol type Medication Change: Yes (Added sonata prn) Medical Record Reviewed: Yes Mental Status Examination - Cognitive Function Orientation: Person, Place, Situation, Time Memory: Intact Attention: WNL Concentration: Poor Association: WNL Fund of Knowledge: WNL - Mood Mood: Depressed - Affect Affect: Blunted - Formal Thought Process Formal Thought Process: Other (Overinclusive and tangential at times) - Suicidal Ideation Suicidal Ideation: No - Homicidal Ideation Homicidal Ideation: No Goal/Treatment Plan - Goal/Treatment Plan Need for Continued Stay: Remain at risks for inpatient hospitalization, Severe depression anxiety, Discharge may exacerbated symptoms, Severe functional impairment Progress Toward Problem(s) and Goals/Treatment Plan: * c/w current tx and plan * Appreciate f/u by Dr. Moeller on 12/09/18~following up on CBC & pain management consult was requested * On 12/09/18 sonata 5 mg po HS prn was initiated for restless sleep * Vitals reviewed and noted below: Selected Entries 12/09/18 12/09/18 07:07 16:00 Temperature 97.9 F Pulse Rate 68 62 Respiratory 20 Rate Blood Pressure 143/85 143/81 * New weekend lab results noted below: Laboratory Results - last 24 hr 12/10/18 07:00 WBC 4.3 L RBC 4.14 Hgb 14.2 Hct 42.7 MCV 103.1 MCH 34.3 MCHC 33.3 RDW 13.0 Plt Count 99 L MPV 11.5 H Neut % (Auto) 54.4 Lymph % (Auto) 30.4 [place] % (Auto) 13.1 H Eos % (Auto) 1.6 Baso % (Auto) 0.5 Lymph # (Auto) 1.3 [place] # (Auto) 0.6 Eos # (Auto) 0.1 Baso # (Auto) 0.02 Absolute Neuts (auto) 2.32 Estimated Date of D/C: 12/15/18
--- NOTE | 2018-12-10 15:43 | PN ---
DATE: 12/10/2018 SUBJECTIVE: A 63-year-old male on the Psychiatry Unit for depression and anxiety disorder. Nursing staff relates that the patient has been a quiet night. OBJECTIVE: VITAL SIGNS: His temperature is 97. His pulse is 59. His blood pressure is 137/82 and respiratory rate is 19. GENERAL: The patient is alert and oriented x3. LUNGS: Clear. HEART: S1 and S2 rhythm. ABDOMEN: Soft, obese with positive bowel sounds. EXTREMITIES: Show no evidence of edema. LABORATORY DATA: Yesterday's lab showed WBC of 4.3, RBC 4.14, hemoglobin 14.2, hematocrit 42.7, platelet count is 99,000. Chemistry shows a sodium of 137, potassium 4.3, chloride 102, BUN of 20, creatinine of 0.7. Today's labs are pending. ASSESSMENT AND PLAN: The patient has a history of alcohol consumption, anxiety, depression, peripheral vascular disease, peripheral neuropathy, lumbar disk disease, bypass surgery, paroxysmal atrial fibrillation, and stroke. We will get a followup CBC and Hematology consult, and he is being followed by GI for his fatty liver disease and elevated liver function test. Laura Moeller MD
[2018-12-11] MEDS: Oxycodone/Acetaminophen 10/325 mg Tab PO PRN ×4 (06:20→23:31)
[2018-12-11 08:06] LABS: BASO # 0.02 K/mm3 (0.0-2.0); BASO % 0.3 % (0.0-3.0); EOS # 0.1 (0.0-0.7); EOS % 1.4 % (1.5-5.0); HEMOGLOBIN 14.7 g/dL (14.0-18.0); LYMPH # 1.6 (1.2-3.4); LYMPH % 26.6 % (22.0-35.0); MEAN CELL VOLUME 102.4 fl (80.0-105.0); MEAN CORPUSCULAR HGB CONC 34.2 g/dl (31.0-37.0); MEAN PLATELET VOLUME 12.3 fl (7.0-11.0); MONO # 0.5 (0.1-0.6); MONO % 8.9 % (1.0-6.0); RBC 4.2 10^6/uL (3.5-6.1); WHITE BLOOD COUNT 5.8 10^3/uL (4.5-11.0)
[2018-12-11 08:18] LABS: ALB/GLOB RATIO 1.3 (1.1-1.8); ALBUMIN 3.6 g/dL (3.0-4.8); ALT/SGPT 100 U/L (7-56); AST/SGOT 69 U/L (17-59); BLOOD UREA NITROGEN 17 mg/dL (7-21); CALCIUM 8.7 mg/dL (8.4-10.5); GFR NON-AFRICAN AMERICAN > 60
--- NOTE | 2018-12-11 11:33 | PN ---
DATE: 12/11/2018 SUBJECTIVE: A 63-year-old male, on psychiatric unit, being followed for depression and anxiety. PHYSICAL EXAMINATION: VITAL SIGNS: Temperature of 97.8, pulse is 62, blood pressure is 134/76, respiratory rate is 20. GENERAL: The patient is alert and oriented x3. LUNGS: Clear. HEART: Is in S1, S2 rhythm. ABDOMEN: Obese, soft with positive bowel sounds. EXTREMITIES: Show no evidence of edema. LABORATORY DATA: WBC is 5.8, RBC 4.2, hemoglobin 14.7, hematocrit 43, platelet count is 124,000. His chemistry shows a sodium of 137, potassium 4.5, chloride 105, CO2 of 28, BUN 17, creatinine 0.7. He has AST of 69 and an ALT of 100. He has got a ceruloplasmin of 25. His TSH is 1.67. IMPRESSION: He is currently being followed by Psychiatry for anxiety and depression. He has a history of chronic pain syndrome, peripheral vascular disease, multiple peripheral stents, bypass surgery, paroxysmal atrial fibrillation, stroke, chronic pain syndrome, degenerative arthritis of the spine, disk disease. The patient had been scheduled for a neurotransmitter to be placed in his lower back at [facility], but did not get there. He is now on the psychiatric unit being evaluated for anxiety and depression. Continue to monitor the patient at this time. Spoken to the patient about the need for him to interact with Director Stage. Laura Moeller MD
--- NOTE | 2018-12-11 11:54 | CP.PCM.PN ---
<Emilee Gaona - Last Filed: 12/11/18 11:50> Subjective - Date & Time of Evaluation Date of Evaluation: 12/11/18 Time of Evaluation: 11:50 - Subjective Subjective: Emilee Gaona, PGY-1, GI Progress Note for Dr. Paris Patient seen and evaluated at bedside. Patient had no acute overnight events. Patient reports bilateral foot pain but denies any abdominal pain, nausea, vomiting, constipation, or diarrhea. Objective - Vital Signs/Intake and Output Vital Signs (last 24 hours): Temp Pulse Resp BP Pulse Ox 97.8 F 62 20 134/76 95 12/11/18 07:00 12/11/18 08:18 12/11/18 07:00 12/11/18 08:18 12/06/18 20:19 - Medications Medications: Current Medications Acetaminophen (Tylenol 325mg Tab) 650 mg PO Q4H PRN PRN Reason: Pain, Mild (1-3) Al Hydrox/Mg Hydrox/Simethicone (Maalox Plus 30 Ml) 30 ml PO DAILY PRN PRN Reason: Upset Stomach Last Admin: 12/06/18 21:51 Dose: 30 ml Amiodarone HCl (Cordarone) 200 mg PO DAILY [facility] Last Admin: 12/11/18 08:18 Dose: 200 mg Amlodipine Besylate (Norvasc) 10 mg PO DAILY [facility] Last Admin: 12/11/18 08:14 Dose: 10 mg Aspirin (Ecotrin) 81 mg PO DAILY [facility] Last Admin: 12/11/18 08:17 Dose: 81 mg Clonazepam (Klonopin) 0.5 mg PO HS JOANNA; Protocol Last Admin: 12/10/18 21:08 Dose: 0.5 mg Clonazepam (Klonopin) 0.5 mg PO BID [facility]; Protocol Last Admin: 12/11/18 08:18 Dose: 0.5 mg Fluoxetine HCl (Prozac) 20 mg PO DAILY [facility] Last Admin: 12/11/18 08:17 Dose: 20 mg Magnesium Hydroxide (Milk Of Magnesia) 30 ml PO DAILY PRN PRN Reason: Constipation Metoprolol Tartrate (Lopressor) 12.5 mg PO BID [facility] Last Admin: 12/11/18 08:15 Dose: 12.5 mg Oxycodone/Acetaminophen (Percocet 10/325 Mg Tab) 1 tab PO Q6H PRN PRN Reason: Pain, severe (8-10) Last Admin: 12/11/18 06:20 Dose: 1 tab Zaleplon (Sonata) 5 mg PO HS PRN PRN Reason: Insomnia - Labs Labs: 12/11/18 07:45 12/11/18 07:45 PT 12.0 SECONDS (9.4-12.5) 12/07/18 12:43 INR 1.06 12/07/18 12:43 - Constitutional Appears: Well, Non-toxic, No Acute Distress - Head Exam Head Exam: ATRAUMATIC, NORMAL INSPECTION, NORMOCEPHALIC - Eye Exam Eye Exam: EOMI, PERRL - ENT Exam ENT Exam: Mucous Membranes Moist - Respiratory Exam Respiratory Exam: Clear to Auscultation Bilateral, NORMAL BREATHING PATTERN - Cardiovascular Exam Cardiovascular Exam: REGULAR RHYTHM, RRR, +S1, +S2 - GI/Abdominal Exam GI & Abdominal Exam: Normal Bowel Sounds, Soft. absent: Distended, Firm, Hernia, Mass, Tenderness - Extremities Exam Extremities exam: Positive for: full ROM, normal inspection. Negative for: pedal edema - Neurological Exam Neurological exam: Alert, CN II-XII Intact, Oriented x3 - Psychiatric Exam Psychiatric exam: Depressed - Skin Skin Exam: Dry, Intact Assessment and Plan - Assessment and Plan (Free Text) Assessment: 63 year old male with past medical history of CVA, peripheral neuropathy, hypertension, asthma, chronic lower back pain, alcohol dependence, atrial f ibrillation presents with bilateral lower extremity pain for 6 years. GI was consulted for elevated LFTs #Elevated LFTs #Alcohol dependence #History of paroxysmal atrial fibrillation #Hypertension #CVA Plan: -Anti-smooth muscle Ab and anti-mitochondrial Ab is negative. -LFTs have been stable. Elevated LFTs likely 2/2 to alcoholic hepatitis. -Will continue to trend LFTs and follow up anti microsomal Ab, HFE gene for further workup and diagnosis. -Hepatitis panel unremarkable -Iron: 163 -Ferritin: elevated at 276 -TIBC is 306 -Ceruloplasmin unremarkable -INR unremarkable at 1.06 -Patient has significant alcohol history, and elevated LFTs could be related to that. Serum alcohol was negative on admission with last drink was 2 days prior to admission. UDS was negative. -Patient is currently taking home amiodarone, which could potentially be causing worsening of liver. -Patient is tolerating regular diet well. Patient plan discussed with Dr. Paris. <Bobby Paris V - Last Filed: 12/12/18 00:14> Objective - Vital Signs/Intake and Output Vital Signs (last 24 hours): Temp Pulse Resp BP Pulse Ox 97.8 F 61 18 142/76 95 12/11/18 15:00 12/11/18 16:12 12/11/18 15:00 12/11/18 16:12 12/06/18 20:19 - Medications Medications: Current Medications Acetaminophen (Tylenol 325mg Tab) 650 mg PO Q4H PRN PRN Reason: Pain, Mild (1-3) Al Hydrox/Mg Hydrox/Simethicone (Maalox Plus 30 Ml) 30 ml PO DAILY PRN PRN Reason: Upset Stomach Last Admin: 12/06/18 21:51 Dose: 30 ml Amiodarone HCl (Cordarone) 200 mg PO DAILY [facility]NA Last Admin: 12/11/18 08:18 Dose: 200 mg Amlodipine Besylate (Norvasc) 10 mg PO DAILY [facility] Last Admin: 12/11/18 08:14 Dose: 10 mg Aspirin (Ecotrin) 81 mg PO DAILY [facility] Last Admin: 12/11/18 08:17 Dose: 81 mg Clonazepam (Klonopin) 0.5 mg PO HS JOANNA; Protocol Last Admin: 12/11/18 21:02 Dose: 0.5 mg Clonazepam (Klonopin) 0.5 mg PO BID JOANNA; Protocol Last Admin: 12/11/18 16:14 Dose: 0.5 mg Fluoxetine HCl (Prozac) 30 mg PO DAILY [facility] Magnesium Hydroxide (Milk Of Magnesia) 30 ml PO DAILY PRN PRN Reason: Constipation Metoprolol Tartrate (Lopressor) 12.5 mg PO BID [facility] Last Admin: 12/11/18 16:12 Dose: 12.5 mg Oxycodone/Acetaminophen (Percocet 10/325 Mg Tab) 1 tab PO Q6H PRN PRN Reason: Pain, severe (8-10) Last Admin: 12/11/18 23:31 Dose: 1 tab Zaleplon (Sonata) 5 mg PO HS PRN PRN Reason: Insomnia Last Admin: 12/11/18 21:02 Dose: 5 mg - Labs Labs: 12/11/18 07:45 12/11/18 07:45 PT 12.0 SECONDS (9.4-12.5) 12/07/18 12:43 INR 1.06 12/07/18 12:43 Attending/Attestation - Attestation I have personally seen and examined this patient.: Yes I have fully participated in the care of the patient.: Yes I have reviewed all pertinent clinical information, including history, physical exam and plan: Yes Notes (Text): p 12/12/18 00:14
--- NOTE | 2018-12-11 20:41 | PCM.PYCHPN ---
Psychiatric Progress Note - Psychiatric Progress Note Patient seen today, length of contact: 25 min Patient Chief Complaint: Depression and the pain. Problems Identified/Issues Discussed: Depression, pain, domiciled difficulties Medical Problems: Multiple and including chronic pain, peripheral vascular disease, multiple peripheral stents, see paroxysmal atrial fibrillation, degenerative osteoarthritis of the back Diagnostic Results: Laboratory Results - last 72 hr 12/07/18 12/09/18 12/09/18 13:30 08:00 08:00 WBC 4.9 RBC 4.35 Hgb 15.0 D Hct 44.5 MCV 102.3 MCH 34.5 MCHC 33.7 RDW 13.1 Plt Count 103 L Manual Plt Count MPV 11.4 H Neut % (Auto) 56.3 Lymph % (Auto) 32.5 [place] % (Auto) 9.6 H Eos % (Auto) 1.4 L Baso % (Auto) 0.2 Lymph # (Auto) 1.6 [place] # (Auto) 0.5 Eos # (Auto) 0.1 Baso # (Auto) 0.01 Absolute Neuts (auto) 2.77 Sodium 137 Potassium 4.3 Chloride 102 Carbon Dioxide 29 Anion Gap 9 L BUN 20 Creatinine 0.7 L Est GFR ( Amer) > 60 Est GFR (Non-Af Amer) > 60 Random Glucose 102 Calcium 8.6 Total Bilirubin 0.9 AST 80 H ALT 96 H Alkaline Phosphatase 76 Total Protein 6.6 Albumin 3.8 Globulin 2.9 Albumin/Globulin Ratio 1.3 Hemochromatos Mutation see note 12/10/18 12/11/18 12/11/18 07:00 07:45 07:45 WBC 4.3 L 5.8 D RBC 4.14 4.20 Hgb 14.2 14.7 Hct 42.7 43.0 MCV 103.1 102.4 MCH 34.3 35.0 MCHC 33.3 34.2 RDW 13.0 13.0 Plt Count 99 L 124 Manual Plt Count 130 MPV 11.5 H 12.3 H Neut % (Auto) 54.4 62.8 Lymph % (Auto) 30.4 26.6 [place] % (Auto) 13.1 H 8.9 H Eos % (Auto) 1.6 1.4 L Baso % (Auto) 0.5 0.3 Lymph # (Auto) 1.3 1.6 [place] # (Auto) 0.6 0.5 Eos # (Auto) 0.1 0.1 Baso # (Auto) 0.02 0.02 Absolute Neuts (auto) 2.32 3.65 Sodium 137 Potassium 4.5 Chloride 105 Carbon Dioxide 28 Anion Gap 8 L BUN 17 Creatinine 0.7 L Est GFR ( Amer) > 60 Est GFR (Non-Af Amer) > 60 Random Glucose 107 Calcium 8.7 Total Bilirubin 0.6 AST 69 H ALT 100 H Alkaline Phosphatase 87 Total Protein 6.5 Albumin 3.6 Globulin 2.9 Albumin/Globulin Ratio 1.3 Hemochromatos Mutation Medication Change: Yes (Prozac dose increased to 30 mg) Medical Record Reviewed: Yes Consults ordered or reviewed: Reviewed most recent consultations Mental Status Examination - Cognitive Function Orientation: Person, Place, Situation, Time Memory: Intact Attention: WNL Concentration: Poor Association: WNL Fund of Knowledge: WNL Decription of patient's judgement and insights: Patient has a sense of depression and hopelessness is not suicidal. Is not homicidal. Is not psychotic. - Mood Mood: Depressed - Affect Affect: Blunted - Speech Speech: Soft - Formal Thought Process Formal Thought Process: Other (Overinclusive and tangential at times) - Suicidal Ideation Suicidal Ideation: No - Homicidal Ideation Homicidal Ideation: No Goal/Treatment Plan - Goal/Treatment Plan Need for Continued Stay: Remain at risks for inpatient hospitalization, Severe depression anxiety, Discharge may exacerbated symptoms, Severe functional impairment Progress Toward Problem(s) and Goals/Treatment Plan: We will continue to monitor for affectivity, possible alcohol withdrawal and pain control with patient complaining of pain. Working on appropriate placement and follow-up. Will contact [facility]. Has been rejected from several programs because she is wheelchair bound. Estimated Date of D/C: 12/15/18
[2018-12-12 07:17] VITALS: RESP 20
[2018-12-12] MEDS: Oxycodone/Acetaminophen 10/325 mg Tab PO PRN ×3 (08:20→20:13)
--- NOTE | 2018-12-12 15:04 | PN ---
DATE: 12/12/2018 SUBJECTIVE: A 63-year-old male on the psych unit. The nursing staff relates there were no particular problems during the day yesterday or at night. OBJECTIVE: VITAL SIGNS: His temperature is 98, his pulse is 77, his blood pressure is 137/95. GENERAL: He is comfortable, alert, oriented x3. LUNGS: Clear. HEART: S1, S2 rhythm. ABDOMEN: Obese, soft with positive bowel sounds. EXTREMITIES: Show no evidence of edema. He is being followed by Psychiatry for anxiety and depression and by gastroenterology for abnormal liver function profile, the GI note relates elevated LFTs with alcohol dependence history and studies to this point believes that the LFTs were secondary to alcoholic hepatitis. He has a past medical history of paroxysmal atrial fibrillation, spinal stenosis, spine surgery, peripheral neuropathy, peripheral vascular disease with stenting, chronic pain syndrome, history of thrombocytopenia felt to be secondary to his alcohol, history of alcohol withdrawal syndrome, history of tobacco use. He had serological studies done by GI which have been negative so far. CURRENT MEDICATIONS: Consist of amiodarone 200 mg daily, Ecotrin 81 mg daily, Klonopin 0.5 mg twice a day and 0.5 mg at bedtime, Lopressor 12.5 mg b.i.d., milk of magnesia p.r.n., Maalox p.r.n., Norvasc 10 mg daily, Percocet 10/325 for severe pain every 6 hours p.r.n. Prozac 30 mg daily. Sonata 5 mg at bedtime p.r.n. Tylenol 325 two tablets every 4 hours p.r.n. for mild pain. He is being followed by Psychiatry and geriatric social worker. He was to have gone to [facility] for back surgery, however never got there Dental Technology Advisor of working with the patient will follow up the patient's labs and continue current medical management. Laura Moeller MD
--- NOTE | 2018-12-12 22:35 | PCM.PYCHPN ---
Psychiatric Progress Note - Psychiatric Progress Note Patient seen today, length of contact: 25 min Patient Chief Complaint: Depression and the pain. Problems Identified/Issues Discussed: Depression, pain, domiciled difficulties Medical Problems: Multiple and including chronic pain, peripheral vascular disease, multiple peripheral stents, see paroxysmal atrial fibrillation, degenerative osteoarthritis of the back Diagnostic Results: Laboratory Results - last 72 hr 12/07/18 12/09/18 12/09/18 13:30 08:00 08:00 WBC 4.9 RBC 4.35 Hgb 15.0 D Hct 44.5 MCV 102.3 MCH 34.5 MCHC 33.7 RDW 13.1 Plt Count 103 L Manual Plt Count MPV 11.4 H Neut % (Auto) 56.3 Lymph % (Auto) 32.5 [place] % (Auto) 9.6 H Eos % (Auto) 1.4 L Baso % (Auto) 0.2 Lymph # (Auto) 1.6 [place] # (Auto) 0.5 Eos # (Auto) 0.1 Baso # (Auto) 0.01 Absolute Neuts (auto) 2.77 Sodium 137 Potassium 4.3 Chloride 102 Carbon Dioxide 29 Anion Gap 9 L BUN 20 Creatinine 0.7 L Est GFR ( Amer) > 60 Est GFR (Non-Af Amer) > 60 Random Glucose 102 Calcium 8.6 Total Bilirubin 0.9 AST 80 H ALT 96 H Alkaline Phosphatase 76 Total Protein 6.6 Albumin 3.8 Globulin 2.9 Albumin/Globulin Ratio 1.3 Hemochromatos Mutation see note 12/10/18 12/11/18 12/11/18 07:00 07:45 07:45 WBC 4.3 L 5.8 D RBC 4.14 4.20 Hgb 14.2 14.7 Hct 42.7 43.0 MCV 103.1 102.4 MCH 34.3 35.0 MCHC 33.3 34.2 RDW 13.0 13.0 Plt Count 99 L 124 Manual Plt Count 130 MPV 11.5 H 12.3 H Neut % (Auto) 54.4 62.8 Lymph % (Auto) 30.4 26.6 [place] % (Auto) 13.1 H 8.9 H Eos % (Auto) 1.6 1.4 L Baso % (Auto) 0.5 0.3 Lymph # (Auto) 1.3 1.6 [place] # (Auto) 0.6 0.5 Eos # (Auto) 0.1 0.1 Baso # (Auto) 0.02 0.02 Absolute Neuts (auto) 2.32 3.65 Sodium 137 Potassium 4.5 Chloride 105 Carbon Dioxide 28 Anion Gap 8 L BUN 17 Creatinine 0.7 L Est GFR ( Amer) > 60 Est GFR (Non-Af Amer) > 60 Random Glucose 107 Calcium 8.7 Total Bilirubin 0.6 AST 69 H ALT 100 H Alkaline Phosphatase 87 Total Protein 6.5 Albumin 3.6 Globulin 2.9 Albumin/Globulin Ratio 1.3 Hemochromatos Mutation DSM 5 Symptoms Update: Continues to complain of depression. Complains that he lacks focus and cannot make decisions. Wants to consult with daughters regarding his future, I. E., His subsequent placement Seems to be angling for his continued stay here even as it has been explained that his insurance company will not allow this. General sense is patient is looking for delinquency prevention social worker here, to help with applications, including housing applications Medication Change: Yes (Prozac dose increased to 30 mg) Medical Record Reviewed: Yes Mental Status Examination - Cognitive Function Orientation: Person, Place, Situation, Time Memory: Intact Attention: WNL Concentration: Poor Association: WNL Fund of Knowledge: WNL Decription of patient's judgement and insights: Patient has a sense of depression and hopelessness is not suicidal. Is not homicidal. Is not psychotic. - Mood Mood: Depressed - Affect Affect: Blunted - Speech Speech: Soft - Formal Thought Process Formal Thought Process: Other (Overinclusive and tangential at times) - Suicidal Ideation Suicidal Ideation: No - Homicidal Ideation Homicidal Ideation: No Goal/Treatment Plan - Goal/Treatment Plan Need for Continued Stay: Remain at risks for inpatient hospitalization, Severe depression anxiety, Discharge may exacerbated symptoms, Severe functional impairment Progress Toward Problem(s) and Goals/Treatment Plan: We will continue to monitor for affectivity, possible alcohol withdrawal and pain control with patient complaining of pain. Working on appropriate placement and follow-up. Will contact [facility]. Has been rejected from several programs because she is wheelchair bound. On December 12 complains of depression. Seems to be "manipulating" a sustained period of inpatient hospitalization to take care of his medical and housing needs. In the meantime we are proceeding with getting him suitably housed and suitably entrenched with an [facility] worker The patient is not suicidal, homicidal or psychotic Estimated Date of D/C: 12/15/18
[2018-12-13] MEDS: Oxycodone/Acetaminophen 10/325 mg Tab PO PRN ×2 (03:55→10:04)
[2018-12-13 07:10] VITALS: TEMP 98
[2018-12-13 07:55] LABS: ALB/GLOB RATIO 1.2 (1.1-1.8); ALBUMIN 3.3 g/dL (3.0-4.8); ALT/SGPT 91 U/L (7-56); AST/SGOT 64 U/L (17-59); BLOOD UREA NITROGEN 17 mg/dL (7-21); CALCIUM 8.6 mg/dL (8.4-10.5); GFR NON-AFRICAN AMERICAN > 60
[2018-12-13 08:31] VITALS: BP 132/72; PULSE 62
[2018-12-13 09:44] LABS: BASO # 0.02 K/mm3 (0.0-2.0); BASO % 0.4 % (0.0-3.0); EOS # 0.1 (0.0-0.7); EOS % 1.1 % (1.5-5.0); HEMOGLOBIN 13.8 g/dL (14.0-18.0); LYMPH # 1.5 (1.2-3.4); LYMPH % 28.8 % (22.0-35.0); MEAN CORPUSCULAR HEMOGLOBIN 34.7 pg (25.0-35.0); MEAN CORPUSCULAR HGB CONC 33.3 g/dl (31.0-37.0); MEAN PLATELET VOLUME 12.5 fl (7.0-11.0); MONO # 0.7 (0.1-0.6); MONO % 12.4 % (1.0-6.0); RBC 3.98 10^6/uL (3.5-6.1); RED CELL DISTRIBUTION WIDTH 12.8 % (11.5-14.5); WHITE BLOOD COUNT 5.3 10^3/uL (4.5-11.0)
--- NOTE | 2018-12-13 20:30 | CON ---
DATE: 12/13/2018 HISTORY OF PRESENT ILLNESS: This is a 63-year-old male with past medical history of peripheral neuropathy, hypertension, asthma, CVA, chronic low back pain, alcohol dependence, atrial fibrillation, and bilateral lower extremity pain for six years and had epidural injections. I was called to evaluate the patient. PAST MEDICAL HISTORY: As above. Status post back surgery. SOCIAL HISTORY: Drinks 6 to 7 drinks daily. Smokes one pack per day. ALLERGIES: NO KNOWN DRUG ALLERGY. PHYSICAL EXAMINATION HEENT: Normocephalic, atraumatic. NECK: Supple. NEUROLOGICAL: Awake, alert, oriented to x3. No aphasia. Cranial nerves II to XII are tested. Pupils reactive. EOM intact. Visual field full. No facial asymmetry. Tongue midline. Motor examination, moves all extremities equally. Tone normal. Deep tendon reflexes 1+. Both plantars are downgoing. Sensory appears intact. Cerebellar gait deferred. IMPRESSION AND PLAN: Peripheral neuropathy. Continue present management. We will follow up. Fidencio Cazares MD
== END 2018-12-13 12:15 | disposition short-term general hospital (02) | DRG 426 ==
LOC: ED 09:45 → ERH 17:21 → PSYC 20:50
PROVIDERS: ADMIT Psychiatry & Neurology Addiction Medicine; ATTEND Psychiatry & Neurology Addiction Medicine
DX: F32.9 Major depressive disorder, single episode, unspecified (principal); F10.239 Alcohol dependence with withdrawal, unspecified; D69.6 Thrombocytopenia, unspecified; F17.210 Nicotine dependence, cigarettes, uncomplicated; F41.9 Anxiety disorder, unspecified; G62.9 Polyneuropathy, unspecified; G89.4 Chronic pain syndrome; I10 Essential (primary) hypertension; I25.10 Atherosclerotic heart disease of native coronary artery without angina pectoris; I48.0 Paroxysmal atrial fibrillation; I73.9 Peripheral vascular disease, unspecified; J45.909 Unspecified asthma, uncomplicated; K76.0 Fatty (change of) liver, not elsewhere classified; M19.90 Unspecified osteoarthritis, unspecified site; M51.9 Unspecified thoracic, thoracolumbar and lumbosacral intervertebral disc disorder; Z79.899 Other long term (current) drug therapy; Z86.73 Personal history of transient ischemic attack (TIA), and cerebral infarction without residual deficits; Z95.820 Peripheral vascular angioplasty status with implants and grafts; Z99.3 Dependence on wheelchair; Z91.048 Other nonmedicinal substance allergy status; K70.10 Alcoholic hepatitis without ascites; M48.00 Spinal stenosis, site unspecified

== ENCOUNTER 2018-12-13 12:32 | Inpatient (IN) | payer OTHER ==
--- NOTE | 2018-12-13 13:23 | ED PDOC ---
Arrival/HPI - General Chief Complaint: Back Pain Time Seen by Provider: 12/13/18 13:01 Historian: Patient, Other (Dr. Moeller) - History of Present Illness Narrative History of Present Illness (Text): 12/13/18 13:01 Pt is a 63 year old male, with a past medical history of leg stents, epidural injections, back injury, and neuropathy, sent to the emergency department from for evaluation of back pain. Patient also complains of neuropathy in feet bilaterally. Patient takes percocet q6 hours for pain. Patient denies any fevers, chills, headache, dizziness, chest pain, shortness of breath, dyspnea on exertion, cough, abdominal pain, nausea, vomiting, diarrhea, dysuria, hematuria, bowel frequency changes, bloody stool, neck pain, or any other complaint. Symptom Onset: Gradual Symptom Course: Unchanged Activities at Onset: Light Context: Other (From ) Past Medical History - Provider Review Nursing Documentation Reviewed: Yes - Infectious Disease Hx of Infectious Diseases: None - Tetanus Immunization Tetanus Immunization: Unknown - Cardiac Hx Cardiac Disorders: Yes Hx Hypertension: No - Pulmonary Hx Respiratory Disorders: No Hx Tuberculosis: No - Neurological HX Cerebrovascular Accident: No Hx Seizures: No - HEENT Hx HEENT Disorder: No Other/Comment: sinus issues due to enviromental allergies - Renal Hx Renal Disorder: No - Endocrine/Metabolic Hx Diabetes Mellitus Type 2: Yes (peripheral neuropathy) - Hematological/Oncological Hx Cancer: No - Integumentary Hx Dermatological Disorder: No - Musculoskeletal/Rheumatological Hx Arthritis: Yes (x 3yrs) Hx Back Pain: Yes (x 3 yrs) Hx Falls: No Hx Unsteady Gait: Yes (due to knee paon) Other/Comment: spinal stenosis - Gastrointestinal Hx Gastrointestinal Disorders: No - Genitourinary/Gynecological Hx Sexually Transmitted Diseases: No - Psychiatric Hx Psychophysiologic Disorder: No Hx Anxiety: Yes Hx Depression: Yes Hx Substance Use: Yes - Surgical History Hx Cardiac Catheterization: No Hx Coronary Stent: No Other/Comment: spinal surgery - Anesthesia Hx Anesthesia: Yes Hx Anesthesia Reactions: No Hx Malignant Hyperthermia: No - Suicidal Assessment Feels Threatened In Home Enviroment: No Family/Social History - Physician Review Nursing Documentation Reviewed: Yes Family/Social History: No Known Family HX Smoking Status: Heavy Smoker > 10 Cigarettes Daily Hx Alcohol Use: No Hx Substance Use: Yes Hx Substance Use Treatment: No Allergies/Home Meds Allergies/Adverse Reactions: Allergies enviromental Allergy (Mild, Uncoded 10/05/18 13:27) COUGH Review of Systems - Physician Review All systems were reviewed & negative as marked: Yes - Review of Systems Constitutional: absent: Fevers, Other (chills) Respiratory: absent: SOB, Cough Cardiovascular: absent: Chest Pain, ERWIN Gastrointestinal: absent: Abdominal Pain, Diarrhea, Nausea, Vomiting, Hematochezia, Other (bowel frequency changes) Genitourinary Male: absent: Dysuria, Hematuria Musculoskeletal: Back Pain (lower back). absent: Neck Pain Neurological: Other (neuropathy in feet bilaterally). absent: Headache, Dizziness Physical Exam - Physical Exam Narrative Physical Exam (Text): 12/13/18 13:01 Gen: VS reviewed, alert, well developed, well nourished, nontoxic, mild distress. ENT: normal pharynx. Eye: EOMI, PERRL. Neck: no JVD, supple, no adenopathy. CV: regular rate, regular rhythm, no rubs, no murmur, no gallops, S1, S2, pulses equal and strong. Pulm: no distress, clear to auscultation, no wheeze, no rhonchi, breath sounds equal, no rales. Abd: soft, nontender, no guarding, no rebound, no rigidity, normal bowel sounds. Ext: no edema. Skin: good color, no rash, no cyanosis. Psych: responds appropriately to questions, normal affect. Neuro: oriented x 3, CN2-12 intact grossly, motor intact, sensation intact. Vital Signs Reviewed: Yes Vital Signs Temp Pulse Resp BP Pulse Ox 12/13/18 12:33 98.1 F 55 L 18 109/69 94 L Temperature: Afebrile Blood Pressure: Normal Pulse: Bradycardic Respiratory Rate: Normal Appearance: Positive for: Well-Appearing, Non-Toxic, Comfortable Pain Distress: None Mental Status: Positive for: Alert and Oriented X 3 Medical Decision Making ED Course and Treatment: 12/13/18 13:[address] Moeller (PMD), who reports pt with intractable lower back pain. Requests admission to his service for neurology and pain management eval. - Scribe Statement The provider has reviewed the documentation as recorded by the Scribe Mike Vaughn All medical record entries made by the Scribe were at my direction and personally dictated by me. I have reviewed the chart and agree that the record accurately reflects my personal performance of the history, physical exam, medical decision making, and the department course for this patient. I have also personally directed, reviewed, and agree with the discharge instructions and disposition. Disposition/Present on Arrival - Present on Arrival Any Indicators Present on Arrival: No History of DVT/PE: No History of Uncontrolled Diabetes: No Urinary Catheter: No History of Decub. Ulcer: No History Surgical Site Infection Following: None - Disposition Have Diagnosis and Disposition been Completed?: Yes Diagnosis: Chronic leg pain Disposition: HOSPITALIZED Disposition Time: 14:03 Patient Plan: Admission Patient Problems: Current Active Problems Problem Status Onset Chronic leg pain Acute Depression Acute Peripheral vascular disease Acute Condition: STABLE
[2018-12-13 13:53] LABS: BASO # 0.02 K/mm3 (0.0-2.0); BASO % 0.3 % (0.0-3.0); EOS # 0.1 (0.0-0.7); EOS % 0.8 % (1.5-5.0); HEMOGLOBIN 14.9 g/dL (14.0-18.0); LYMPH # 1.4 (1.2-3.4); LYMPH % 22.5 % (22.0-35.0); MEAN CELL VOLUME 103.3 fl (80.0-105.0); MEAN CORPUSCULAR HGB CONC 33.9 g/dl (31.0-37.0); MEAN PLATELET VOLUME 11.5 fl (7.0-11.0); MONO # 0.5 (0.1-0.6); MONO % 8.1 % (1.0-6.0); RBC 4.26 10^6/uL (3.5-6.1); RED CELL DISTRIBUTION WIDTH 12.8 % (11.5-14.5); WHITE BLOOD COUNT 6.1 10^3/uL (4.5-11.0)
[2018-12-13 14:05] LABS: BLOOD UREA NITROGEN 21 mg/dL (7-21); GFR NON-AFRICAN AMERICAN > 60
--- NOTE | 2018-12-13 14:27 | RAD ---
Date of service: 12/13/2018 PROCEDURE: Radiographs of the Lumbar Spine. HISTORY: radicular pain COMPARISON: No prior. TECHNIQUE: 5 views obtained. FINDINGS: BONES: Normal alignment. No listhesis. No fracture. DISC SPACES: Unremarkable. OTHER FINDINGS: Aorto iliac stents IMPRESSION: Unremarkable radiographs of the lumbar spine.
[2018-12-13 22:28] VITALS: BMI 39.5
[2018-12-13] MEDS ORDERED: Pneumococcal 23-Valent Vaccine IM ONE (22:28)
--- NOTE | 2018-12-13 23:00 | CP.PCM.PCO ---
<Leonid Rendon - Last Filed: 12/13/18 22:56> Addendum Addendum: 12/13/18 22:56 House Doctor Note: Received page from Nurse Heather at 22:40 regarding Mr. Winkler due to complaint of low back pain 04/07, non-radiating and sharp. Patient received tylenol earlier, and this helped alleviate the pain. Patient is hemodynamically stable. New order: Tylenol 650mg PO stat x1 dose. Please continue to monitor the patient, and please page ext [phone] again if needed. Leonid Rendon PGY1 <Megan Petersen - Last Filed: 12/14/18 19:19> Attending/Attestation - Attestation I have personally seen and examined this patient.: No I have fully participated in the care of the patient.: No I have reviewed all pertinent clinical information: No
[2018-12-14] MEDS ORDERED: Oxycodone/Acetaminophen 5/325 mg Tab PO STA (04:25)
--- NOTE | 2018-12-14 09:12 | HP ---
DATE OF EXAM: 12/13/2018 HISTORY OF PRESENT ILLNESS: This is a 63-year-old male transferred from the psychiatry unit with back pain. The patient was on the psychiatry unit being treated for depression and anxiety. He has a past medical history of chronic back pain, spinal stenosis, laminectomies, alcohol dependence, fatty liver, alcoholic hepatitis, paroxysmal atrial fibrillation, thrombocytopenia secondary to his alcohol, peripheral vascular disease with stents, depression and anxiety. SOCIAL HISTORY: He admits to drinking 4-6 beers a day. ALLERGIES: HE HAS A ENVIRONMENTAL ALLERGIES HE STATES. MEDICATIONS: Amiodarone 2 mg daily, Ecotrin 81 mg daily, Lopressor 12.5 mg b.i.d., Norvasc 10 mg daily. On the psychiatry unit, he was getting Prozac 30 mg daily and Klonopin 0.5 mg in the morning and at bedtime and sonata 5 mg at bedtime p.r.n. REVIEW OF SYSTEMS: Ten systems are reviewed, pertinent findings as stated in the physical. PHYSICAL EXAMINATION: VITAL SIGNS: Showed temperature of 98, his pulse is 62, blood pressure is 140/67, respiratory rate is 20, oxygen sat is 96% on room air. GENERAL: He is alert and oriented x3. NECK: Supple. LUNGS: Clear. HEART: S1 and S2 rhythm. ABDOMEN: Obese, soft with positive bowel sounds. EXTREMITIES: Show no evidence of edema. NEUROLOGIC: He has a chronic pain in his lower legs. He had been advised to follow up with his orthopedic surgeon at [facility] Dr. John after he had been seen by Neurology at [place] with recommendation for him to have a neurotransmitter trial. LABORATORY DATA: Showed a WBC of 6.1, RBC 4.26, hemoglobin 14.9, hematocrit 44, platelet count 142. Chemistry showed normal electrolytes, the BUN is 21, the creatinine is 0.7. PROBLEMS: 1. Back pain. 2. History of spinal stenosis. 3. History of back surgery. 4. Peripheral vascular disease with stents. 5. History of fatty liver. 6. History of paroxysmal atrial fibrillation. PLAN: We will request the Neurology, Pain Management, Psychiatry and Gastroenterology evaluation for this patient. This has been fully discussed with the patient as well with a family member, his daughter. Laura Moeller MD [facility] # [phone] KAYODE
--- NOTE | 2018-12-14 10:37 | CP.PCM.PCO ---
Physician Communication Note - Physician Communication Note Physician Communication Note: placed lidoderm patch for back pain. f/u pain mx recommendations/PT
--- NOTE | 2018-12-14 12:21 | CP.PCM.PN ---
<Emilee Gaona - Last Filed: 12/14/18 12:17> Subjective - Date & Time of Evaluation Date of Evaluation: 12/14/18 Time of Evaluation: 12:17 - Subjective Subjective: Emilee Gaona, PGY-1, GI Progress Note for Dr. Paris Patient seen and evaluated at bedside. Patient had no acute overnight events. Patient continues to complain of back pain and bilateral feet pain that he relates to lumbar puncture that he had many years ago. He denies any GI complaints at this time including fever, nausea, vomiting, abdominal pain, or ch fuad in bowel movements. Objective - Vital Signs/Intake and Output Vital Signs (last 24 hours): Temp Pulse Resp BP Pulse Ox 97.6 F 60 18 143/61 97 12/14/18 06:00 12/14/18 06:00 12/14/18 06:00 12/14/18 10:05 12/14/18 06:00 Intake and Output: 12/14/18 12/14/18 06:59 18:59 Intake Total 300 Balance 300 - Medications Medications: Current Medications Amiodarone HCl (Cordarone) 200 mg PO DAILY [facility] Last Admin: 12/14/18 10:05 Dose: 200 mg Amlodipine Besylate (Norvasc) 10 mg PO DAILY [facility] Last Admin: 12/14/18 10:05 Dose: 10 mg Aspirin (Ecotrin) 81 mg PO DAILY [facility] Last Admin: 12/14/18 10:05 Dose: 81 mg Clonazepam (Klonopin) 0.5 mg PO AMHS [facility]; Protocol Last Admin: 12/14/18 10:04 Dose: 0.5 mg Fluoxetine HCl (Prozac) 30 mg PO DAILY [facility] Last Admin: 12/14/18 10:04 Dose: 30 mg Lidocaine (Lidoderm) 1 ea TD DAILY [facility] Metoprolol Tartrate (Lopressor) 12.5 mg PO BID [facility] Last Admin: 12/14/18 10:05 Dose: 12.5 mg Zaleplon (Sonata) 5 mg PO HS PRN PRN Reason: Insomnia Last Admin: 12/13/18 22:10 Dose: 5 mg - Labs Labs: 12/13/18 13:45 12/13/18 13:45 - Constitutional Appears: Well, Non-toxic, No Acute Distress - Head Exam Head Exam: ATRAUMATIC, NORMAL INSPECTION, NORMOCEPHALIC - Eye Exam Eye Exam: EOMI, PERRL - ENT Exam ENT Exam: Mucous Membranes Moist - Respiratory Exam Respiratory Exam: Clear to Auscultation Bilateral, NORMAL BREATHING PATTERN - Cardiovascular Exam Cardiovascular Exam: REGULAR RHYTHM, RRR, +S1, +S2 - GI/Abdominal Exam GI & Abdominal Exam: Normal Bowel Sounds, Soft. absent: Distended, Firm, Hernia, Mass, Tenderness - Extremities Exam Extremities exam: Positive for: full ROM, normal inspection, darkened skin of lower extremities below the knee, +1 pulses on bilateral feet. Negative for: pedal edema - Neurological Exam Neurological exam: Alert, CN II-XII Intact, Oriented x3 - Psychiatric Exam Psychiatric exam: Depressed - Skin Skin Exam: Dry, Intact Assessment and Plan - Assessment and Plan (Free Text) Assessment: 63 year old male with past medical history of CVA, peripheral neuropathy, hypertension, asthma, chronic lower back pain, alcohol dependence, atrial fibrillation presents with bilateral lower extremity pain for 6 years. GI was consulted for elevated LFTs #Elevated LFTs #Alcohol dependence #History of paroxysmal atrial fibrillation #Hypertension #CVA Plan: -Anti-smooth muscle Ab and anti-mitochondrial Ab is negative. -HFE gene mutation is negative. -LFTs have been stable. Elevated LFTs likely 2/2 to alcoholic hepatitis. -Hepatitis panel unremarkable -Iron: 163 -Ferritin: elevated at 276 -TIBC is 306 -Ceruloplasmin unremarkable -INR unremarkable at 1.06 -Patient has significant alcohol history, and elevated LFTs could be related to that. Serum alcohol was negative on admission with last drink was 2 days prior to admission. UDS was negative. -Patient is currently taking home amiodarone, which could potentially be causing worsening of liver. -Patient is tolerating heart healthy diet well. Patient plan discussed with Dr. Paris. <Bobby Paris V - Last Filed: 12/17/18 00:52> Objective - Vital Signs/Intake and Output Vital Signs (last 24 hours): Temp Pulse Resp BP Pulse Ox 98.2 F 54 L 20 123/59 L 96 12/14/18 21:24 12/14/18 21:24 12/14/18 21:24 12/14/18 21:24 12/14/18 21:24 Intake and Output: 12/14/18 12/15/18 18:59 06:59 Intake Total 480 Balance 480 - Medications Medications: Current Medications Amiodarone HCl (Cordarone) 200 mg PO DAILY [facility] Last Admin: 12/14/18 10:05 Dose: 200 mg Amlodipine Besylate (Norvasc) 10 mg PO DAILY [facility] Last Admin: 12/14/18 10:05 Dose: 10 mg Aspirin (Ecotrin) 81 mg PO DAILY [facility] Last Admin: 12/14/18 10:05 Dose: 81 mg Clonazepam (Klonopin) 0.5 mg PO AMHS [facility]; Protocol Last Admin: 12/14/18 22:03 Dose: 0.5 mg Fluoxetine HCl (Prozac) 30 mg PO DAILY [facility] Last Admin: 12/14/18 10:04 Dose: 30 mg Gabapentin (Neurontin) 300 mg PO TID [facility]; Protocol Last Admin: 12/14/18 17:12 Dose: 300 mg Lidocaine (Lidoderm) 1 ea TD DAILY [facility] Last Admin: 12/14/18 13:08 Dose: 1 ea Metoprolol Tartrate (Lopressor) 12.5 mg PO BID [facility] Last Admin: 12/14/18 17:13 Dose: 12.5 mg Oxycodone/Acetaminophen (Percocet 10/325 Mg Tab) 1 tab PO Q12 PRN PRN Reason: Pain, severe (8-10) Last Admin: 12/14/18 20:21 Dose: 1 tab Tizanidine HCl (Zanaflex) 4 mg PO HS [facility] Last Admin: 12/14/18 22:03 Dose: 4 mg Zaleplon (Sonata) 5 mg PO HS PRN PRN Reason: Insomnia Last Admin: 12/14/18 22:03 Dose: 5 mg - Labs Labs: 12/13/18 13:45 12/14/18 19:29 PT 11.4 SECONDS (9.4-12.5) 12/14/18 19:29 INR 1.03 12/14/18 19:29 Attending/Attestation - Attestation I have personally seen and examined this patient.: Yes I have fully participated in the care of the patient.: Yes I have reviewed all pertinent clinical information, including history, physical exam and plan: Yes Notes (Text): This patient was seen and evaluated the area. This is an addendum to the GI progress report dictated by the resident. Patient denies any abdominal pain tolerating the diet. The concern is elevated LFTs is probably multifactorial history of alcohol use patient is also been on amiodarone and patient is morbidly obese Real could be also contributory factor. The present plan is 1 to avoid the Alcohol #2 is close follow-up of LFTs #3 the left knee shows the upward trend we will discuss with the heel painter regarding the amiodarone. 12/15/18 00:06 12/17/18 00:50
--- NOTE | 2018-12-14 12:45 | PN ---
DATE: 12/14/2018 SUBJECTIVE: The patient has low back pain radiating down both legs. Has history of laminectomy from lumbosacral stenosis and failed back syndrome. He was seeking Dr. Carlos A Aguilar, spinal surgeon at [facility] who is also a pain specialist for spinal cord stimulator but has not made his appointment over there yet. He will also need an outpatient EMG nerve conduction study with us to see the extent of lumbosacral radiculopathy as well as peripheral neuropathy. He refused to take Lyrica in the past. Lidoderm patch has been placed. We will recommend pain management followup as well as outpatient physical therapy. Recommend to continue psychiatry followup. PAST MEDICAL HISTORY: History of hypertension; tobacco alcohol abuse; atrial fibrillation, on Xarelto and Plavix in the past; history of depression; chronic back pain, laminectomy for lumbosacral stenosis; neuropathy; peripheral vascular disease, status post bilateral iliac stenting 3 or 4 years ago. REVIEW OF SYSTEMS: A 14-point review of systems negative except in the HPI. FAMILY HISTORY: Noncontributory. ALLERGIES: NO KNOWN DRUG ALLERGIES. SOCIAL HISTORY: No illicit drug abuse, smoking, or drug abuse at this time. MEDICATIONS: Reviewed by nurses' reconciliation sheet. LABORATORY DATA: No new labs done today. PHYSICAL EXAMINATION: VITAL SIGNS: Temperature 97.6, pulse rate 60, blood pressure 120/69, respiratory rate 18, and oxygen saturation 97% on room air. GENERAL: The patient is sitting up in bed, in no acute distress. HEENT: Head is atraumatic and normocephalic. PERRLA. Extraocular muscles intact. NECK: Supple. No JVD. No adenopathy noted. LUNGS: Clear to auscultation. No adventitious sounds. HEART: S1 and S2, normal rate and rhythm. No murmur, rubs, or gallops. ABDOMEN: Soft, nontender, nondistended. Bowel sounds present. EXTREMITIES: No clubbing and no cyanosis. Peripheral pulses are 2+ bilaterally. NEUROLOGIC: The patient is alert and oriented to person, place, and year. Speech is fluent without any errors. Cranial nerves II through XII are intact. Motor exam; moves all extremities equally. Toes are downgoing bilaterally. Sensory exam; decreased light touch to pinprick up to the calves bilaterally. Decreased vibration of the toes. DTRs are 2+ throughout and 1 at both knees and ankles. Coordination; [id number] is intact. No dysmetria noted. Gait is deferred for now. IMPRESSION: Bilateral lower extremity pain secondary to underlying chronic lumbosacral stenosis, status post laminectomy with failed back syndrome with underlying peripheral neuropathy and peripheral vascular disease. RECOMMENDATIONS: At this time, we will recommend: 1. Lidoderm patch for lumbosacral area to reduce pain. 2. Pain management to follow up in regards to any further epidural injections that could help him with the acute onset of pain and would recommend possible Lyrical if pain management places the patient on and the patient decides. 3. Outpatient followup with Dr. Carlos A Aguilar at [facility] for possible spinal cord stimulator or Dr. Saucedo from pain management would do it. Would like their input on that. 4. PT/OT evaluation, outpatient physical and occupational therapy. 5. Continue with psychiatric management in regards to his depression and insight and competency. Continue current present medical management. Avoid overuse of opiates. Andrew Cazares MD
[2018-12-14] MEDS: Lidocaine 5% Patch TD SCH (13:08)
--- NOTE | 2018-12-14 14:59 | CON ---
DATE: 12/14/2018 HISTORY OF PRESENT ILLNESS: This is a 63-year-old male transferred to the main medical floor from the psychiatry unit where he was treated for depression and anxiety. The patient has a past medical history of chronic back pain, spinal stenosis, status post laminectomy, alcohol dependence, fatty liver, paroxysmal atrial fibrillation, thrombocytopenia secondary to alcohol, peripheral vascular disease and peripheral neuropathy. Called to evaluate the patient. PAST MEDICAL HISTORY: As above. SOCIAL HISTORY: Drinks 4-6 beers a day. ALLERGIES: ENVIRONMENTAL ALLERGY. MEDIATIONS: Amlodipine, Ecotrin, Lopressor, Norvasc and Lidoderm patch. REVIEW OF SYSTEMS: Ten-point review of system was negative except pain. PHYSICAL EXAMINATION HEENT: Normocephalic and atraumatic. NECK: Supple. NEUROLOGIC: Awake and oriented to self. Cranial nerve II through XII were tested. Pupils reactive. EOM intact. Visual field full. No facial asymmetry. Tongue midline. Motor examination, spontaneous movement of all the extremities noted. Deep tendon reflexes 1+. Plantars downgoing. Sensory appears intact. Cerebellar gait deferred. IMPRESSION: A 63-year-old male transferred from the psych floor with low back pain, peripheral neuropathy, history of spinal stenosis, status post laminectomy, and peripheral vascular disease with stents, and paroxysmal atrial fibrillation. PLAN: Gave Lidoderm patch and pain control. Dr. Saucedo will follow up. Fidencio Cazares MD
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
[2018-12-14 19:53] LABS: INR 1.03; PROTHROMBIN TIME 11.4 SECONDS (9.4-12.5)
[2018-12-14 20:07] LABS: ALB/GLOB RATIO 1.3 (1.1-1.8); ALBUMIN 3.8 g/dL (3.0-4.8); ALT/SGPT 111 U/L (7-56); AST/SGOT 88 U/L (17-59); BLOOD UREA NITROGEN 17 mg/dL (7-21); GFR NON-AFRICAN AMERICAN > 60
[2018-12-14] MEDS: Oxycodone/Acetaminophen 10/325 mg Tab PO PRN (20:21)
--- NOTE | 2018-12-14 23:44 | CON ---
DATE: 12/14/2018 LOCATION: Room 565, bed 1. REQUESTING PHYSICIAN: Laura Moeller MD CHIEF COMPLAINT: Low back pain, bilateral lower extremity pain. HISTORY OF PRESENT ILLNESS: Mr. Winkler is a pleasant 63-year-old male who was admitted complaining of chronic low back pain that radiated down to bilateral lower extremity associated with tingling, numbness, and burning sensation going to bilateral lower extremity down to bilateral feet. The patient stated that he underwent lumbar laminectomy for severe spinal stenosis, it was done by Dr. Carlos A Aguilar at the [facility]. The patient stated that he used to take gabapentin 300 mg four times a day with minimal relief. He also used to take Percocet 10 mg for a brief time by his physician. He stated that he received multiple epidural injection in the past and he was recommended to have spinal cord stimulator to control and to relieve his low back pain and lower extremity pain. His visual analog scale on today's evaluation is 9/10. PAST MEDICAL HISTORY: Cerebrovascular accident in 10/2017, peripheral neuropathy, hypertension, asthma, chronic low back pain, and history of alcohol dependence. PAST SURGICAL HISTORY: Status post lumbar laminectomy and status post vascular stenting of bilateral lower extremity. FAMILY HISTORY: Noncontributory. SOCIAL HISTORY: History of heavy smoker more than 10 cigarettes daily, alcohol use 6 to 12 bottles of beer daily with history of alcohol dependence. REVIEW OF SYSTEMS: A 14-point review of systems was negative except for what is mentioned in the history of present illness. PHYSICAL EXAMINATION: GENERAL: The patient is sitting on the edge of bed in mild distress. VITAL SIGNS: Afebrile. Vital signs stable. HEENT: Head is atraumatic and normocephalic. RESPIRATORY: Mild wheezes. No respiratory distress. No accessory muscle use. CARDIOVASCULAR: S1 and S2 are normal. ABDOMEN: Soft, nontender, and nondistended. NEUROMUSCULAR: He is alert, awake, and oriented x3. He concentrates very well. Cranial nerves II through XII grossly intact. Coordination is grossly intact. Speech is normal. There is tenderness over bilateral lumbar paraspinal, bilateral SI joint with well-healed scar over lower lumbar spine, status post lumbar laminectomy. Straight leg raising test elicit low back pain. Sensation to light touch is impaired L5 dermatome. IMPRESSION: Chronic low back pain, status post lumbar laminectomy syndrome. RECOMMENDATIONS: I discussed with the patient different treatment options and the patient mentioned that Dr. Cazares has restarted him on gabapentin 300 mg t.i.d. Also, discussed with the patient about other options of medications and we will try the patient on brief dose of Percocet 10/325 mg b.i.d. as needed for severe pain only and it is for short term as well as Zanaflex 4 mg at bedtime. This was discussed with Dr. Laura Moeller about his medication regimen, also mentions that gabapentin can be titrated to 400 t.i.d. and even 600 t.i.d. as tolerated and depends on the patient's response to the therapy. Percocet should be short term like 5 days to 10 days supply and discussed with the patient because of the history of alcohol dependence, he might be at risk for being dependent on narcotic as well. So, we will use this as a short term to alleviate his pain and to avoid any dependence issue. Mayito Saucedo MD cc: Laura Moeller MD
[2018-12-15] MEDS ORDERED: Oxycodone/Acetaminophen 5/325 mg Tab PO ONE (05:41)
[2018-12-15] MEDS: Lidocaine 5% Patch TD SCH (09:29)
[2018-12-15] MEDS: Oxycodone/Acetaminophen 10/325 mg Tab PO PRN ×2 (09:46→18:16)
[2018-12-15 22:37] VITALS: O2SAT 95
[2018-12-16] MEDS: Oxycodone/Acetaminophen 10/325 mg Tab PO PRN (05:13)
[2018-12-16 07:52] VITALS: PULSE 55; RESP 20; TEMP 97.4
[2018-12-16] MEDS: Lidocaine 5% Patch TD SCH (09:43)
[2018-12-16 09:45] VITALS: BP 140/77
--- NOTE | 2018-12-18 10:07 | PN ---
DATE: 12/15/2018 SUBJECTIVE: A 63-year-old male sitting on the edge of bed this morning. OBJECTIVE: VITAL SIGNS: Temperature is 97.7, his pulse is 77, his blood pressure is 101/66, his oxygen sat is 95% on room air. GENERAL: He is alert and oriented x3. LUNGS: Clear. HEART: S1 and S2 rhythm. ABDOMEN: Obese, soft with positive bowel sounds. EXTREMITIES: Show no evidence of edema. MEDICATIONS: The patient is currently on amiodarone, Ecotrin, Klonopin, Lidoderm, Lopressor, Neurontin, Norvasc, Percocet p.r.n. for severe pain, Prozac, sonata at bedtime p.r.n. and Zanaflex at bedtime. ASSESSMENT AND PLAN: The patient has been seen by Psychiatry, Neurology and Pain Management. Current recommendations are noted and discussed these findings with the patient who concurs with the recommendations and management. We will get physical therapy evaluation and recommendations and the patient concurs with this. He has a history of peripheral neuropathy, peripheral vascular disease, low back pain, laminectomy history, spinal stenosis history, paroxysmal atrial fibrillation, cerebrovascular accident, alcohol abuse, fatty liver, alcoholic hepatitis depression and anxiety. He is aware of what the recommendations are for his care, he is agreeable to work with these recommendations. 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 Laura Moeller MD
== END 2018-12-16 13:18 | disposition home health service (06) | DRG 243 ==
LOC: ED 12:32 → ERH 14:04 → 5RNO 17:19
PROVIDERS: ADMIT Internal Medicine; ATTEND Internal Medicine
DX: M54.17 Radiculopathy, lumbosacral region (principal); E11.42 Type 2 diabetes mellitus with diabetic polyneuropathy; E11.51 Type 2 diabetes mellitus with diabetic peripheral angiopathy without gangrene; D69.59 Other secondary thrombocytopenia; M48.07 Spinal stenosis, lumbosacral region; I48.0 Paroxysmal atrial fibrillation; I10 Essential (primary) hypertension; K76.0 Fatty (change of) liver, not elsewhere classified; F34.1 Dysthymic disorder; F41.9 Anxiety disorder, unspecified; K70.10 Alcoholic hepatitis without ascites; J45.909 Unspecified asthma, uncomplicated; F10.21 Alcohol dependence, in remission; E66.01 Morbid (severe) obesity due to excess calories; Z68.39 Body mass index [BMI] 39.0-39.9, adult; Z79.01 Long term (current) use of anticoagulants; Z86.73 Personal history of transient ischemic attack (TIA), and cerebral infarction without residual deficits; Z87.891 Personal history of nicotine dependence; Z95.820 Peripheral vascular angioplasty status with implants and grafts

== ENCOUNTER 2019-01-09 14:14 | Emergency (ER) | payer OTHER ==
[2019-01-09 14:15] VITALS: BMI 39.5
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
[2019-01-09 15:19] LABS: BASO # 0.01 K/mm3 (0.0-2.0); BASO % 0.1 % (0.0-3.0); EOS % 0.3 % (1.5-5.0); HEMOGLOBIN 15.8 g/dL (14.0-18.0); LYMPH # 1.7 (1.2-3.4); LYMPH % 21.9 % (22.0-35.0); MEAN CELL VOLUME 95.9 fl (80.0-105.0); MEAN CORPUSCULAR HEMOGLOBIN 34.2 pg (25.0-35.0); MEAN CORPUSCULAR HGB CONC 35.7 g/dl (31.0-37.0); MEAN PLATELET VOLUME 11.3 fl (7.0-11.0); MONO # 0.7 (0.1-0.6); MONO % 8.8 % (1.0-6.0); RBC 4.62 10^6/uL (3.5-6.1); RED CELL DISTRIBUTION WIDTH 12.2 % (11.5-14.5); WHITE BLOOD COUNT 7.9 10^3/uL (4.5-11.0)
[2019-01-09 15:39] LABS: ALB/GLOB RATIO 1.4 (1.1-1.8); ALBUMIN 4.7 g/dL (3.0-4.8); ALT/SGPT 95 U/L (7-56); AST/SGOT 94 U/L (17-59); BLOOD UREA NITROGEN 9 mg/dL (7-21); CALCIUM 9.2 mg/dL (8.4-10.5); GFR NON-AFRICAN AMERICAN > 60
[2019-01-09 15:41] LABS: ACETAMINOPHEN < 10.0 ug/ml (10.0-20.0); SALICYLATE < 1 mg/dL (2.0-20.0)
--- NOTE | 2019-01-09 17:15 | RAD ---
Date of service: 01/09/2019 HISTORY: medical screening COMPARISON: 12/06/2018. FINDINGS: LUNGS: No active pulmonary disease. PLEURA: No significant pleural effusion identified, no pneumothorax apparent. CARDIOVASCULAR: No atherosclerotic calcification present Normal. OSSEOUS STRUCTURES: No significant abnormalities. VISUALIZED UPPER ABDOMEN: Normal. OTHER FINDINGS: None. IMPRESSION: No active disease. No significant interval change compared to the prior examination(s).
[2019-01-09 17:41] LABS: URINE APPEARANCE CLEAR (CLEAR); URINE BILIRUBIN NEGATIVE (NEGATIVE); URINE BLOOD NEGATIVE (NEGATIVE); URINE COLOR YELLOW (YELLOW); URINE GLUCOSE (UA) NEGATIVE (NEGATIVE); URINE LEUKOCYTE ESTERASE NEGATIVE Leu/uL (NEGATIVE); URINE PROTEIN NEGATIVE mg/dL (<30 mg/dL)
[2019-01-09 17:56] LABS: BARBITURATES, UR NEGATIVE (NEGATIVE); BENZODIAZEPINES, UR NEGATIVE (NEGATIVE); OPIATES, UR NEGATIVE (NEGATIVE); PHENCYCLIDINE, UR NEGATIVE (NEGATIVE)
[2019-01-09] MEDS ORDERED: Lidocaine 5% Patch TD STA (18:12)
--- NOTE | 2019-01-09 20:50 | CARD ---
APPROVED REPORT Date of service: 01/09/2019 EKG Measurement Heart [id number] <Conclusion> Sinus rhythm with premature atrial complexes Otherwise normal ECG
[2019-01-09 21:28] VITALS: O2SAT 100
--- NOTE | 2019-01-09 21:57 | ED PDOC ---
Physical Exam Vital Signs Temp Pulse Resp BP Pulse Ox 01/09/19 19:35 98.1 F 88 20 146/78 100 01/09/19 17:09 98.5 F 82 19 153/76 H 97 01/09/19 14:33 98 F 82 18 121/72 99 Medical Decision Making ED Course and Treatment: 01/09/19 20:30 Case endorsed to me by Dr. Pinon, pending transfer for psychiatric admission. pt accepted at [facility] for admission - Lab Interpretations Lab Results: Total Bilirubin 1.0 mg/dL (0.2-1.3) 01/09/19 15:11 AST 94 U/L (17-59) H 01/09/19 15:11 ALT 95 U/L (7-56) H 01/09/19 15:11 Alkaline Phosphatase 100 U/L (38-126) 01/09/19 15:11 Total Protein 8.0 g/dL (5.8-8.3) 01/09/19 15:11 Albumin 4.7 g/dL (3.0-4.8) 01/09/19 15:11 Globulin 3.3 gm/dL 01/09/19 15:11 Albumin/Globulin Ratio 1.4 (1.1-1.8) 01/09/19 15:11 Urine Color Yellow (YELLOW) 01/09/19 17:15 Urine Appearance Clear (CLEAR) 01/09/19 17:15 Urine pH 6.0 (4.7-8.0) 01/09/19 17:15 Ur Specific [place] 1.010 (1.005-1.035) 01/09/19 17:15 Urine Protein Negative mg/dL (<30 mg/dL) 01/09/19 17:15 Urine Glucose (UA) Negative mg/dL (NEGATIVE) 01/09/19 17:15 Urine Ketones Negative mg/dL (NEGATIVE) 01/09/19 17:15 Urine Blood Negative (NEGATIVE) 01/09/19 17:15 Urine Nitrate Negative (NEGATIVE) 01/09/19 17:15 Urine Bilirubin Negative (NEGATIVE) 01/09/19 17:15 Urine Urobilinogen 1.0 E.U./dL (<1 E.U./dL) H 01/09/19 17:15 Ur Leukocyte Esterase Negative Wolfgang/uL (NEGATIVE) 01/09/19 17:15 - RAD Interpretation Radiology Orders: 01/09/19 14:50 CHEST PORTABLE [RAD] Stat - Medication Orders Current Medication Orders: Discontinued Medications Acetaminophen (Tylenol 325mg Tab) 975 mg PO STAT STA Stop: 01/09/19 15:31 Last Admin: 01/09/19 15:46 Dose: 975 mg MAR Pain/Vitals Document 01/09/19 15:46 [email or web address] (Rec: 01/09/19 15:47 [email or web address] [id number]) Pain Reassessment Is This A Pain ReAssessment? No Sleep Is patient sleeping during reassessment? No Presence of Pain Presence of Pain Yes Pain Scale Used Protocol: [facility] Scale Used Numeric Location Left, Right or Bilateral Bilateral Pain Location Body Site leg Description Constant Intensity 10 Scale Used Numeric Pain Behavior Facial Grimacing Aggravating Factors Changing Position Alleviating Factors Medication Acetaminophen (Tylenol 325mg Tab) 650 mg PO STAT STA Stop: 01/09/19 21:07 Last Admin: 01/09/19 21:11 Dose: Not Given Non-Admin Reason: Patient Refused Cyclobenzaprine HCl (Flexeril) 5 mg PO STAT STA Stop: 01/09/19 18:13 Last Admin: 01/09/19 18:48 Dose: 5 mg Dexamethasone (Decadron Inj) 10 mg IM STAT STA Stop: 01/09/19 18:14 Last Admin: 01/09/19 18:48 Dose: 10 mg IM Administration Charges Document 01/09/19 18:48 [facility] (Rec: 01/09/19 18:48 [id number] Injection Site MAR Injection Site Right Deltoid Charges for Administration # of IM Administrations 1 Ketorolac Tromethamine (Toradol) 60 mg IM STAT STA Stop: 01/09/19 15:31 Last Admin: 01/09/19 15:47 Dose: 60 mg MAR Pain Assessment Document 01/09/19 15:47 [email or web address] (Rec: 01/09/19 15:47 [email or web address] [id number]) Pain Reassessment Is this a pain reassessment? No Sleep Is patient sleeping during reassessment? No Presence of Pain Presence of Pain Yes Pain Scale Used Protocol: PSCALES Pain Scale Used Numeric Location Left, Right or Bilateral Bilateral Pain Location Body Site Leg Description Description Constant Intensity of Pain at present 10 Pain Behavior Facial Grimacing Aggravating Factors Changing Position Alleviating Factors/Management Medication Techniques Alleviating Factors Medication IM Administration Charges Document 01/09/19 15:47 [email or web address] (Rec: 01/09/19 15:47 [email or web address] [id number]) Injection Site MAR Injection Site Left Deltoid Charges for Administration # of IM Administrations 1 Lidocaine (Lidoderm) 1 ea TD DAILY STA Stop: 01/09/19 18:13 Last Admin: 01/09/19 18:48 Dose: 1 ea MAR Transdermal Patch Site Document 01/09/19 18:48 [email or web address] (Rec: 01/09/19 18:[id number]) Transdermal Patch Site Transdermal Patch Site Right Lower Back Disposition/Present on Arrival - Present on Arrival Any Indicators Present on Arrival: No History of DVT/PE: No History of Uncontrolled Diabetes: No Urinary Catheter: No History of Decub. Ulcer: No History Surgical Site Infection Following: None - Disposition Have Diagnosis and Disposition been Completed?: Yes Diagnosis: Depression, Chronic leg pain Disposition: Transfer [facility] Disposition Time: 00:15 Condition: STABLE Forms: [employer] (Japanese)
[2019-01-10 00:11] VITALS: BP 136/71; PULSE 81; RESP 17; TEMP 98
== END 2019-01-10 00:17 | disposition short-term general hospital (02) ==
LOC: ED 14:14
DX: F32.9 Major depressive disorder, single episode, unspecified (principal); M79.605 Pain in left leg; M79.604 Pain in right leg; G89.29 Other chronic pain; I10 Essential (primary) hypertension; J45.909 Unspecified asthma, uncomplicated; E11.42 Type 2 diabetes mellitus with diabetic polyneuropathy; M19.90 Unspecified osteoarthritis, unspecified site; F41.9 Anxiety disorder, unspecified; Z87.891 Personal history of nicotine dependence
CPT/HCPCS: 71045; 80053; 80320; 80324; 80329; 80345; 80346; 80349; 80353; 80358; 80361; 81003; 83992; 85025; 90791; 93005; 96372; 99285; J1100; J1885